=== PATIENT | female | born 1950 | race Caucasian/White ===

== ENCOUNTER → 2017-06-28 12:01 | Outpatient (CLI) | payer MEDICARE, MEDICAID, SELFPAY ==
--- NOTE | 2017-06-28 | DI.MRI.S_ITS ---
PROCEDURE: MR LUMBAR SPINE WO CON INDICATIONS: LOW BACK PAIN TECHNIQUE: Noncontrast sagittal T1 spin echo and T2 fast echo, sagittal STIR, axial T1 and T2 fast spin echo through the lumbar spine. In cases with scoliosis, additional coronal T2 fast spin echo may be performed. COMPARISON: [facility], MR, BRAIN W&WO CONTRAST, 12/03/2012, 9:35. [facility], MR, L-SPINE WITHOUT CONTRAST, 10/21/2012, 12:36. FINDINGS: Image quality: Excellent. Alignment and Curvature: There is grade 1 anterolisthesis of L4 over L5. Bone Marrow: Mild compression deformity of L2, unchanged from 10/21/2012. There is degenerative endplate signal changes scattered in lumbar spine. No acute vertebral body compression fractures. Spinal Cord: Conus medullaris terminates at the L1 level. Visualized cord demonstrates normal signal and size. Paraspinous Soft Tissues: No paravertebral masses. L1-L2: Preserved disc height. Mild disc desiccation. There is mild posterior disc bulge. The central canal is patent. No foraminal stenosis. No significant change from the last exam. L2-L3: Mild loss of disc height and moderate disc desiccation. There is mild posterior disc bulge and posterior central disc extrusion extending inferiorly. Mild bilateral facet arthropathy and hypertrophy of ligamentum flavum. The central canal is mildly narrowed. Mild foraminal foraminal stenosis on the right. No foraminal stenosis on the left. No significant change from the last exam. L3-L4: Mild loss of disc height and disc desiccation. There is mild posterior disc bulge. Mild bilateral facet arthropathy and hypertrophy of ligamentum flavum. The central canal is mildly narrowed. No foraminal stenosis. No significant change from the last exam. L4-L5: Mild loss of disc height and disc desiccation. There is diffuse posterior disc bulge. Moderate bilateral facet arthropathy and hypertrophy of ligamentum flavum. The central canal is mildly narrowed. No foraminal stenosis. No significant change from the last exam. L5-S1: Moderate to severe loss of disc height and disc desiccation. There is diffuse posterior disc bulge and a small posterior central annular tear. Mild bilateral facet arthropathy. The central canal is patent. Mild bilateral foraminal stenosis. No significant change from the last exam. IMPRESSION: 1. Multilevel degenerative disc disease and facet arthropathy as described. 2. Mild central canal stenosis at several levels. 3. Mild foraminal stenoses as described. 4. Mild chronic L2 compression fracture. Dictated by: Sammi Waters M.D. on 06/28/2017 at 16:53 Approved by: Sammi Waters M.D. on 06/29/2017 at 9:44
== END ==
PROVIDERS: PCP Nurse Practitioner; Visit Provider Anesthesiology Pain Medicine
DX: M51.36 Other intervertebral disc degeneration, lumbar region (principal); M47.816 Spondylosis without myelopathy or radiculopathy, lumbar region; M48.061 Spinal stenosis, lumbar region without neurogenic claudication; M99.73 Connective tissue and disc stenosis of intervertebral foramina of lumbar region; M48.56XA Collapsed vertebra, not elsewhere classified, lumbar region, initial encounter for fracture
CPT/HCPCS: 72148

== ENCOUNTER 2017-07-04 09:44 | Emergency (ER) | payer MEDICARE, MEDICAID, SELFPAY ==
--- NOTE | 2017-07-04 09:51 | ED.SYNCOPE ---
HPI - Syncope General Chief Complaint: Syncope Stated Complaint: syncope Time Seen by Provider: 07/04/17 09:51 Source: EMS Mode of arrival: EMS Limitations: no limitations History of Present Illness HPI narrative: Patient is a 67-year-old female who presents after syncopal episode. She actually fell and hit her head 3 days ago she was out in the garden walking backwards when she tripped hitting her head may be had a brief loss of consciousness. She said the headache off and on since been no vomiting. Today in the shower she felt extremely lightheaded she knew she was going to pass out. He had some heart palpitations. She was able to get dressed before she called 911. She did not eat breakfast today but she normally does not eat. MD complaint: felt faint and almost passed out Related Data Home Medications Medication Instructions Recorded Confirmed lisinopril 10 mg PO QDAY #0 10/28/10 07/04/17 hydrochlorothiazide 25 mg PO QDAY #0 10/05/11 07/04/17 clonazepam 1 mg PO TID 07/04/17 07/04/17 cyanocobalamin (vitamin B-12) 1,000 mcg IM QMONTH 07/04/17 07/04/17 [Vitamin B-12] ergocalciferol (vitamin D2) 1 cap PO QWEEK 07/04/17 07/04/17 [Vitamin D2] hydrocodone-acetaminophen [[place]] 1 tab PO BID 07/04/17 07/04/17 levothyroxine 100 mcg PO DAILY 07/04/17 07/04/17 morphine 15 mg PO BID 07/04/17 07/04/17 Allergies Allergy/AdvReac Type Severity Reaction Status Date / Time gabapentin [From Neurontin] Allergy Unknown Verified 07/04/17 09:59 Review of Systems Review of Systems All systems reviewed & are unremarkable except as noted in HPI and below Constitutional Denies chills, Denies fever(s), Denies lethargy and Denies weakness Eyes Denies change in vision, Denies eye discharge, Denies irritation and Denies loss of vision Cardiovascular Reports as per HPI, Reports system reviewed and no additional complaints, except as docu, Reports syncope and Reports rapid heart rate Gastrointestinal Gastrointestinal: Denies abdominal pain, Denies change in bowel habits, Denies diarrhea, Denies nausea and Denies vomiting Neurologic Reports syncope, Denies loss of vision and Denies weakness [facility] Social History Smoking Status: Never smoker Exam Initial Vital Signs Initial Vital Signs: Vital Signs Temperature 98.6 F 07/04/17 09:54 Pulse Rate 74 07/04/17 09:54 Respiratory Rate 18 07/04/17 09:54 Blood Pressure 135/76 H 07/04/17 09:54 Pulse Oximetry 98 07/04/17 09:54 Const General: cooperative and well developed Nutritional Appearance: well nourished Orientation: alert, awake, oriented x3 and not confused HENMT Head: normal to inspection and normocephalic Nose: external nose normal Resp Effort & Inspection: normal respiratory effort, able to speak in complete sentences, no respiratory distress and no use of accessory muscles Auscultation: clear to auscultation bilaterally, no rales, no rhonchi and no wheezes Back/Spine/Pelvis Cervical Spine: other (in collar, midline tenderness no step-offs) Skin General: no rashes or lesions noted, No jaundice and No petechiae Neuro General: alert, oriented x3, gait normal and no focal motor deficits Speech: speech normal Course Hospital Course: NIH STROKE SCALE: Score=0 1a. LOC=0 1b. LOC questions= 0 -->What month is it? How old are you? 1c. LOC commands=0 -->Open and close your eyes. Assigner and release your hand 2. Best gaze=0 3. Visual Gonzalez=0 4. Facial Palsy=0 5. Motor Arm --Right=0 --Left=0 6. Motor Leg --Right=0 --Left=0 7. Limb Ataxia=0 8.Sensory=0 9. Best language=0 10. Dysarthria=0 11.Extinction and Inattention=0 Orders Ordered: ED Orders 07/04/17 09:52 CT cervical spine wo con Stat CT head/brain wo con Stat EKG-12 Lead Stat 07/04/17 10:07 Complete Blood Count AUTO DIFF Stat Comprehensive Metabolic Panel Stat Troponin with CK Cardiac Panel Stat Discontinued Medications Sodium Chloride (Normal Saline 0.9%) 1,000 mls @ 1,000 mls/hr IV BOLUS ONE Stop: 07/04/17 10:50 Last Infusion: 07/04/17 12:04 Dose: 0 mls/hr Admin: 07/04/17 10:31 Dose: 1,000 mls/hr Ketorolac Tromethamine (Toradol) 30 mg IV NOW ONE Stop: 07/04/17 11:02 Last Admin: 07/04/17 11:03 Dose: 30 mg Vital Signs - 8 hr 07/04/17 09:54 07/04/17 10:32 07/04/17 10:33 Temperature 98.6 F Pulse Rate 74 70 68 Respiratory Rate 18 14 12 Blood Pressure 135/76 H Blood Pressure [Left Arm] 103/57 L 103/57 L Pulse Oximetry 98 99 99 07/04/17 11:05 07/04/17 12:05 Temperature Pulse Rate 64 70 Respiratory Rate 14 12 Blood Pressure Blood Pressure [Left Arm] 150/62 H 104/80 Pulse Oximetry 99 99 MDM - Syncope Lab Data Attestation: I reviewed the patient's lab results. Mild leukocytosis the same as it was in October no left shift no sign of infection. Result diagrams: 07/04/17 10:07 07/04/17 10:07 Lab Results 07/04/17 07/04/17 Range/Units 10:07 10:07 WBC 14.5 H (4.5-11.0) X10^3/uL RBC 4.89 (4.0-5.2) X10^6/uL Hgb 15.5 (12.0-16.0) g/dL Hct 45.7 (36-46) % MCV 93.4 (80-100) fL MCH 31.7 (26-34) PG MCHC 33.9 (30-36) % RDW 14.0 (11.6-14.8) % Plt Count 286 (150-400) X10^3/uL Neut % (Auto) 56.8 (50-75) % Lymph % (Auto) 29.5 (25-40) % [place] % (Auto) 10.0 (3-14) % Eos % (Auto) 3.0 (2-4) % Baso % (Auto) 0.7 (0-2) % Neut # (Auto) 8200 H (3232-0543) /uL Sodium 142 (137-145) mmol/L Potassium 3.7 (3.4-5.1) mmol/L Chloride 99 (98-107) mmol/L Carbon Dioxide 33 H (22-32) mmol/L BUN 18 H (7-17) mg/dL Creatinine 0.80 (0.52-1.04) mg/dL Estimated GFR > 60.0 (>60) mL/min BUN/Creatinine Ratio 22.5 H (6-22) Glucose 104 (80-110) mg/dL Calcium 10.6 H (8.4-10.2) mg/dL Total Bilirubin 0.4 (0.2-1.3) mg/dL AST 37 H (14-36) IU/L ALT 23 (9-52) IU/L Alkaline Phosphatase 65 (38-126) U/L Total Creatine Kinase 51 (30-135) U/L Troponin I < 0.012 (0.01-0.034) ng/mL Total Protein 8.0 (6.3-8.2) g/dL Albumin 4.4 (3.5-5.0) g/dL Globulin 3.6 (1.7-4.1) g/dL Albumin/Globulin Ratio 1.2 (1.0-2.8) Imaging Data CT scan - head: Radiologist's impression: [place] [address] CT Scan Report Signed Patient: Katherine Vasquez I MR#: [id number] : 1950 Acct:[id number] Age/Sex: 67 / F Date of Service: 07/04/17 Loc: Accession Number: [id number] Procedure: CT head/brain wo con Ordering Provider: Sandra Diaz D.O. PROCEDURE: CT HEAD/BRAIN WO CON INDICATIONS: passed out TECHNIQUE: Noncontrast 4.5 mm thick angled axial sections acquired from the foramen magnum to the vertex, with coronal and sagittal reformats. For radiation dose reduction, the following was used: automated exposure control, adjustment of mA and/or kV according to patient size. COMPARISON: [facility], MR, BRAIN W&WO CONTRAST, 12/03/2012, 9:35. FINDINGS: Image quality: Excellent. CSF spaces: Basal cisterns are patent. No extra-axial fluid collections. Ventricles are normal in size and shape. Brain: No midline shift. No intracranial masses or hemorrhage. Rivera-white matter interface is normal. Skull and face: Calvarium and visualized facial bones are intact, without suspicious lesions. Sinuses: Visualized sinuses and mastoids are clear. IMPRESSION: No acute intracranial abnormality. c-spine: Radiologist's impression: PROCEDURE: CT CERVICAL SPINE WO CON INDICATIONS: neck pain passed out hit head TECHNIQUE: Noncontrast 3 mm thick sections acquired from the skull base to the T4 level. Sagittal and coronal reformats were then constructed. For radiation dose reduction, the following was used: automated exposure control, adjustment of mA and/or kV according to patient size. COMPARISON: None. FINDINGS: Image quality: Excellent. Bones: Mild straightening of cervical lordosis which could be positional or related to muscle spasm. No fractures or dislocations. Degenerative disc disease and mild spondylosis C5-6 and C6-7. Visualized superior ribs are intact. Soft tissues: Prevertebral soft tissues are normal in thickness. No paravertebral hematomas. No apical pneumothoraces. Calcifications in the left lobe of thyroid. IMPRESSION: 1. Loss of cervical lordosis. 2. No fracture or subluxation. 3. Disc degeneration C5-6 and C6-7. ECG Data Attestation: I personally reviewed and interpreted this ECG as follows: Prior ECG tracings: available for review Interpretation: Rhythm rate [address] changes MDM Narrative Medical decision making narrative: She is feeling much better. She is ambulatory to the restroom. She in her head a few days ago. Possible concussion syndrome. No neurologic deficits. Discharge Plan Departure Patient Disposition: Home, Self-Care Clinical Impression: Near syncope Discharge Date/Time: 07/04/17 12:08 Interventions: ED Discharge Assessment Last Done: 07/04/17 12:07 Instructions: DI for Syncope in Adults (Fainting) Activity Restrictions/Additional Instructions: *You have been diagnosed with fainting *What to do: Increase fluid intake, eat frequent meals, if still having headache pain may require the headache specialist here in town *Continue to take medications as directed *Follow up with your primary care provider in 2-3 days *Return to ER if you should have persistent vomiting, weakness, vision changes or any new, worsening or concerning symptoms Prescriptions: No Action lisinopril 10 MG tablet 10 mg PO QDAY Qty: 0 RF: 0 hydrochlorothiazide 25 MG tablet 25 mg PO QDAY Qty: 0 RF: 0 hydrocodone-acetaminophen [[place]] 5-325 mg Tablet 1 tab PO BID RF: 0 clonazepam 1 mg Tablet 1 mg PO TID RF: 0 levothyroxine 100 mcg Tablet 100 mcg PO DAILY RF: 0 cyanocobalamin (vitamin B-12) [Vitamin B-12] 1,000 mcg/mL Solution 1,000 mcg IM QMONTH RF: 0 morphine 15 mg Tablet Extended Release 15 mg PO BID RF: 0 ergocalciferol (vitamin D2) [Vitamin D2] 50,000 unit Capsule 1 cap PO QWEEK RF: 0
[2017-07-04 09:54] VITALS: BP 135/76; PULSE 74; RESP 18; TEMP 37; O2SAT 98; BMI 27.6
--- NOTE | 2017-07-04 09:56 | ED_ITS ---
HPI - Syncope General Chief Complaint: Syncope Stated Complaint: syncope Time Seen by Provider: 07/04/17 09:51 Source: EMS Mode of arrival: EMS Limitations: no limitations History of Present Illness HPI narrative: Patient is a 67-year-old female who presents after syncopal episode. She actually fell and hit her head 3 days ago she was out in the garden walking backwards when she tripped hitting her head may be had a brief loss of consciousness. She said the headache off and on since been no vomiting. Today in the shower she felt extremely lightheaded she knew she was going to pass out. He had some heart palpitations. She was able to get dressed before she called 911. She did not eat breakfast today but she normally does not eat. MD complaint: felt faint and almost passed out Related Data Home Medications Medication Instructions Recorded Confirmed lisinopril 10 mg PO QDAY #0 10/28/10 07/04/17 hydrochlorothiazide 25 mg PO QDAY #0 10/05/11 07/04/17 clonazepam 1 mg PO TID 07/04/17 07/04/17 cyanocobalamin (vitamin B-12) 1,000 mcg IM QMONTH 07/04/17 07/04/17 [Vitamin B-12] ergocalciferol (vitamin D2) 1 cap PO QWEEK 07/04/17 07/04/17 [Vitamin D2] hydrocodone-acetaminophen [[place]] 1 tab PO BID 07/04/17 07/04/17 levothyroxine 100 mcg PO DAILY 07/04/17 07/04/17 morphine 15 mg PO BID 07/04/17 07/04/17 Allergies Allergy/AdvReac Type Severity Reaction Status Date / Time gabapentin [From Neurontin] Allergy Unknown Verified 07/04/17 09:59 Review of Systems Review of Systems All systems reviewed & are unremarkable except as noted in HPI and below Constitutional Denies chills, Denies fever(s), Denies lethargy and Denies weakness Eyes Denies change in vision, Denies eye discharge, Denies irritation and Denies loss of vision Cardiovascular Reports as per HPI, Reports system reviewed and no additional complaints, except as docu, Reports syncope and Reports rapid heart rate Gastrointestinal Gastrointestinal: Denies abdominal pain, Denies change in bowel habits, Denies diarrhea, Denies nausea and Denies vomiting Neurologic Reports syncope, Denies loss of vision and Denies weakness [facility] Social History Smoking Status: Never smoker Exam Initial Vital Signs Initial Vital Signs: Vital Signs Temperature 98.6 F 07/04/17 09:54 Pulse Rate 74 07/04/17 09:54 Respiratory Rate 18 07/04/17 09:54 Blood Pressure 135/76 H 07/04/17 09:54 Pulse Oximetry 98 07/04/17 09:54 Const General: cooperative and well developed Nutritional Appearance: well nourished Orientation: alert, awake, oriented x3 and not confused HENMT Head: normal to inspection and normocephalic Nose: external nose normal Resp Effort & Inspection: normal respiratory effort, able to speak in complete sentences, no respiratory distress and no use of accessory muscles Auscultation: clear to auscultation bilaterally, no rales, no rhonchi and no wheezes Back/Spine/Pelvis Cervical Spine: other (in collar, midline tenderness no step-offs) Skin General: no rashes or lesions noted, No jaundice and No petechiae Neuro General: alert, oriented x3, gait normal and no focal motor deficits Speech: speech normal Course Hospital Course: NIH STROKE SCALE: Score=0 1a. LOC=0 1b. LOC questions= 0 -->What month is it? How old are you? 1c. LOC commands=0 -->Open and close your eyes. Instructor Adjunct Pharmacy Technician and release your hand 2. Best gaze=0 3. Visual Gonzalez=0 4. Facial Palsy=0 5. Motor Arm --Right=0 --Left=0 6. Motor Leg --Right=0 --Left=0 7. Limb Ataxia=0 8.Sensory=0 9. Best language=0 10. Dysarthria=0 11.Extinction and Inattention=0 Orders Ordered: ED Orders 07/04/17 09:52 CT cervical spine wo con Stat CT head/brain wo con Stat EKG-12 Lead Stat 07/04/17 10:07 Complete Blood Count AUTO DIFF Stat Comprehensive Metabolic Panel Stat Troponin with CK Cardiac Panel Stat Discontinued Medications Sodium Chloride (Normal Saline 0.9%) 1,000 mls @ 1,000 mls/hr IV BOLUS ONE Stop: 07/04/17 10:50 Last Infusion: 07/04/17 12:04 Dose: 0 mls/hr Admin: 07/04/17 10:31 Dose: 1,000 mls/hr Ketorolac Tromethamine (Toradol) 30 mg IV NOW ONE Stop: 07/04/17 11:02 Last Admin: 07/04/17 11:03 Dose: 30 mg Vital Signs - 8 hr 07/04/17 09:54 07/04/17 10:32 07/04/17 10:33 Temperature 98.6 F Pulse Rate 74 70 68 Respiratory Rate 18 14 12 Blood Pressure 135/76 H Blood Pressure [Left Arm] 103/57 L 103/57 L Pulse Oximetry 98 99 99 07/04/17 11:05 07/04/17 12:05 Temperature Pulse Rate 64 70 Respiratory Rate 14 12 Blood Pressure Blood Pressure [Left Arm] 150/62 H 104/80 Pulse Oximetry 99 99 MDM - Syncope Lab Data Attestation: I reviewed the patient's lab results. Mild leukocytosis the same as it was in October no left shift no sign of infection. Result diagrams: 07/04/17 10:07 07/04/17 10:07 Lab Results 07/04/17 07/04/17 Range/Units 10:07 10:07 WBC 14.5 H (4.5-11.0) X10^3/uL RBC 4.89 (4.0-5.2) X10^6/uL Hgb 15.5 (12.0-16.0) g/dL Hct 45.7 (36-46) % MCV 93.4 (80-100) fL MCH 31.7 (26-34) PG MCHC 33.9 (30-36) % RDW 14.0 (11.6-14.8) % Plt Count 286 (150-400) X10^3/uL Neut % (Auto) 56.8 (50-75) % Lymph % (Auto) 29.5 (25-40) % [place] % (Auto) 10.0 (3-14) % Eos % (Auto) 3.0 (2-4) % Baso % (Auto) 0.7 (0-2) % Neut # (Auto) 8200 H (7898-7127) /uL Sodium 142 (137-145) mmol/L Potassium 3.7 (3.4-5.1) mmol/L Chloride 99 (98-107) mmol/L Carbon Dioxide 33 H (22-32) mmol/L BUN 18 H (7-17) mg/dL Creatinine 0.80 (0.52-1.04) mg/dL Estimated GFR > 60.0 (>60) mL/min BUN/Creatinine Ratio 22.5 H (6-22) Glucose 104 (80-110) mg/dL Calcium 10.6 H (8.4-10.2) mg/dL Total Bilirubin 0.4 (0.2-1.3) mg/dL AST 37 H (14-36) IU/L ALT 23 (9-52) IU/L Alkaline Phosphatase 65 (38-126) U/L Total Creatine Kinase 51 (30-135) U/L Troponin I < 0.012 (0.01-0.034) ng/mL Total Protein 8.0 (6.3-8.2) g/dL Albumin 4.4 (3.5-5.0) g/dL Globulin 3.6 (1.7-4.1) g/dL Albumin/Globulin Ratio 1.2 (1.0-2.8) Imaging Data CT scan - head: Radiologist's impression: [place] [address] CT Scan Report Signed Patient: Katherine Vasquez I MR#: [id number] : 1950 Acct:[id number] Age/Sex: 67 / F Date of Service: 07/04/17 Loc: Accession Number: [id number] Procedure: CT head/brain wo con Ordering Provider: Sandra Diaz D.O. PROCEDURE: CT HEAD/BRAIN WO CON INDICATIONS: passed out TECHNIQUE: Noncontrast 4.5 mm thick angled axial sections acquired from the foramen magnum to the vertex, with coronal and sagittal reformats. For radiation dose reduction, the following was used: automated exposure control, adjustment of mA and/or kV according to patient size. COMPARISON: [facility], MR, BRAIN W&WO CONTRAST, 12/03/2012, 9:35. FINDINGS: Image quality: Excellent. CSF spaces: Basal cisterns are patent. No extra-axial fluid collections. Ventricles are normal in size and shape. Brain: No midline shift. No intracranial masses or hemorrhage. Rivera-white matter interface is normal. Skull and face: Calvarium and visualized facial bones are intact, without suspicious lesions. Sinuses: Visualized sinuses and mastoids are clear. IMPRESSION: No acute intracranial abnormality. c-spine: Radiologist's impression: PROCEDURE: CT CERVICAL SPINE WO CON INDICATIONS: neck pain passed out hit head TECHNIQUE: Noncontrast 3 mm thick sections acquired from the skull base to the T4 level. Sagittal and coronal reformats were then constructed. For radiation dose reduction, the following was used: automated exposure control, adjustment of mA and/or kV according to patient size. COMPARISON: None. FINDINGS: Image quality: Excellent. Bones: Mild straightening of cervical lordosis which could be positional or related to muscle spasm. No fractures or dislocations. Degenerative disc disease and mild spondylosis C5-6 and C6-7. Visualized superior ribs are intact. Soft tissues: Prevertebral soft tissues are normal in thickness. No paravertebral hematomas. No apical pneumothoraces. Calcifications in the left lobe of thyroid. IMPRESSION: 1. Loss of cervical lordosis. 2. No fracture or subluxation. 3. Disc degeneration C5-6 and C6-7. ECG Data Attestation: I personally reviewed and interpreted this ECG as follows: Prior ECG tracings: available for review Interpretation: Rhythm rate [address] changes MDM Narrative Medical decision making narrative: She is feeling much better. She is ambulatory to the restroom. She in her head a few days ago. Possible concussion syndrome. No neurologic deficits. Discharge Plan Departure Patient Disposition: Home, Self-Care Clinical Impression: Near syncope Discharge Date/Time: 07/04/17 12:08 Interventions: ED Discharge Assessment Last Done: 07/04/17 12:07 Instructions: DI for Syncope in Adults (Fainting) Activity Restrictions/Additional Instructions: *You have been diagnosed with fainting *What to do: Increase fluid intake, eat frequent meals, if still having headache pain may require the headache specialist here in town *Continue to take medications as directed *Follow up with your primary care provider in 2-3 days *Return to ER if you should have persistent vomiting, weakness, vision changes or any new, worsening or concerning symptoms Prescriptions: No Action lisinopril 10 MG tablet 10 mg PO QDAY Qty: 0 RF: 0 hydrochlorothiazide 25 MG tablet 25 mg PO QDAY Qty: 0 RF: 0 hydrocodone-acetaminophen [[place]] 5-325 mg Tablet 1 tab PO BID RF: 0 clonazepam 1 mg Tablet 1 mg PO TID RF: 0 levothyroxine 100 mcg Tablet 100 mcg PO DAILY RF: 0 cyanocobalamin (vitamin B-12) [Vitamin B-12] 1,000 mcg/mL Solution 1,000 mcg IM QMONTH RF: 0 morphine 15 mg Tablet Extended Release 15 mg PO BID RF: 0 ergocalciferol (vitamin D2) [Vitamin D2] 50,000 unit Capsule 1 cap PO QWEEK RF: 0
[2017-07-04 10:11] LABS: Add Manual Diff / Slide Review NO; Basophils Percent Auto 0.7 % (0-2); Hematocrit 45.7 % (36-46); Hemoglobin 15.5 g/dL (12.0-16.0); Lymphocytes Percent Auto 29.5 % (25-40); Mean Corpuscular HGB Conc 33.9 % (30-36); Mean Corpuscular Hemoglobin 31.7 PG (26-34); Mean Corpuscular Volume 93.4 fL (80-100); Neutrophils Absolute Auto 8200 /uL (3000-5900); Neutrophils Percent Auto 56.8 % (50-75); Platelet Count 286 X10^3/uL (150-400); Red Blood Cell Count 4.89 X10^6/uL (4.0-5.2); White Blood Cell Count 14.5 X10^3/uL (4.5-11.0)
[2017-07-04 10:20] LABS: Alanine Aminotransferase 23 IU/L (9-52); Albumin 4.4 g/dL (3.5-5.0); Albumin Globulin Ratio 1.2 (1.0-2.8); Alkaline Phosphatase 65 U/L (38-126); Aspartate Aminotransferase 37 IU/L (14-36); BUN Creatinine Ratio 22.5 (6-22); Bilirubin Total 0.4 mg/dL (0.2-1.3); Blood Urea Nitrogen 18 mg/dL (7-17); Calcium 10.6 mg/dL (8.4-10.2); Carbon Dioxide 33 mmol/L (22-32); Chloride 99 mmol/L (98-107); Creatine Kinase 51 U/L (30-135); Estimated Glomerular Filt Rate > 60.0 mL/min (>60); Globulin 3.6 g/dL (1.7-4.1); Glucose 104 mg/dL (80-110); HEMOLYSIS 22 (0-50); Potassium 3.7 mmol/L (3.4-5.1); Sodium 142 mmol/L (137-145)
--- NOTE | 2017-07-04 10:26 | PC.NURSE ---
Hard collar placed pre hospital by EMS r/t previous fall and c/o cervical tenderness. No neuro deficity.
[2017-07-04] MEDS: SODIUM CHLORIDE 0.9% 1,000 ML 1000 ML IV (10:31)
[2017-07-04 10:32] VITALS: BP 103/57; PULSE 70; RESP 14; O2SAT 99
[2017-07-04 10:32] LABS: Troponin I < 0.012 ng/mL (0.01-0.034)
[2017-07-04 10:33] VITALS: BP 103/57; PULSE 68; RESP 12; O2SAT 99
[2017-07-04] MEDS: KETOROLAC 60 MG/2 ML VIAL 30 MG IV (11:03)
[2017-07-04 11:05] VITALS: BP 150/62; PULSE 64; RESP 14; O2SAT 99
[2017-07-04 12:05] VITALS: BP 104/80; PULSE 70; RESP 12; O2SAT 99
--- NOTE | 2017-07-04 12:06 | PC.NURSE ---
Walking w/ improved gait. Ate 100% on meal. No acute distress. States headache is 'a little' better but due to take home medications (morphine / vicodin). Taking taxi home. No acute distress.
== END 2017-07-04 12:08 | disposition home or self-care (01) ==
PROVIDERS: Emergency Provider Emergency Medicine; PCP Anesthesiology Pain Medicine
DX: R55 Syncope and collapse (principal)
CPT/HCPCS: 36591; 70450; 72125; 80053; 81003; 82550; 82553; 82962; 84484; 85025; 93005; 96361; 96374; 99283; 99285; J1885

== ENCOUNTER → 2018-02-20 17:26 | Outpatient (CLI) | payer MEDICARE, MEDICAID, SELFPAY ==
[2018-02-20 19:08] LABS: Vitamin D 25 Hydroxy (D3) 22.1 ng/mL (30.0-100.0)
[2018-02-20 19:21] LABS: Thyroid Stimulating Hormone 4.29 uIU/mL (0.47-4.68)
== END ==
PROVIDERS: PCP Anesthesiology Pain Medicine; Visit Provider Nurse Practitioner
DX: E03.9 Hypothyroidism, unspecified (principal); E55.9 Vitamin D deficiency, unspecified
CPT/HCPCS: 36415; 82306; 84443

== ENCOUNTER 2018-08-08 13:07 | Emergency (ER) | payer MEDICARE, MEDICAID, SELFPAY ==
[2018-08-08 13:15] VITALS: BP 150/87; PULSE 87; RESP 16; O2SAT 94; BMI 30.9
--- NOTE | 2018-08-08 13:48 | PC.NURSE ---
pt sitting on the chair, calmly, skin warm dry pink.
--- NOTE | 2018-08-08 13:58 | ED.RECABL ---
HPI - Recheck/Abnormal Lab/Rx <ISIDRA Lilly - Last Filed: 08/08/18 21:22> General Chief Complaint: Recheck/Abnormal Lab/Rx Stated Complaint: Needs her pain medication, in severe pain Time Seen by Provider: 08/08/18 13:32 Source: patient Mode of arrival: ambulatory Limitations: no limitations History of Present Illness HPI narrative: 68-year-old female with a history of chronic opioid (for back pain)use is current clean a being seen at the [facility] for chronic pain control, presents emergency department today stating that she had an appointment yesterday at the pain clinic and her prescriptions were refilled. However, when she went to the pharmacy to mushroom picker her medication they did not receive described. She is here for refill. The patient states her pain is caused by a failed surgery. States she will run out over the weekend. Patient denies chest pain, shortness of breath, nausea, vomiting, syncope, or headaches. Melissa stated her prescriptions refilled on 08/04 and they were filled for 6 days, patient takes hydrocodone and morphine for pain. Related Data Home Medications Medication Instructions Recorded Confirmed lisinopril 10 mg PO QDAY #0 10/28/10 07/04/17 hydrochlorothiazide 25 mg PO QDAY #0 10/05/11 07/04/17 clonazepam 1 mg PO TID 07/04/17 07/04/17 cyanocobalamin (vitamin B-12) 1,000 mcg IM QMONTH 07/04/17 07/04/17 [Vitamin B-12] ergocalciferol (vitamin D2) 1 cap PO QWEEK 07/04/17 07/04/17 [Vitamin D2] hydrocodone-acetaminophen [[place]] 1 tab PO BID 07/04/17 07/04/17 levothyroxine 100 mcg PO DAILY 07/04/17 07/04/17 morphine 15 mg PO BID 07/04/17 07/04/17 Previous Rx's Medication Instructions Recorded ondansetron 4 mg PO Q8H PRN #7 tab 08/08/18 Allergies Allergy/AdvReac Type Severity Reaction Status Date / Time gabapentin [From Neurontin] Allergy Unknown Verified 08/08/18 13:15 Review of Systems <ISIDRA Lilly - Last Filed: 08/08/18 21:22> Review of Systems REVIEW OF SYSTEMS: GENERAL: Denies fever or chills. HENT: No head trauma, hearing loss or sore throat. EYES: No loss of vision, double vision, eye pain, or irritation. CARDIOVASCULAR: No chest pain or syncope. RESPIRATORY: No shortness of breath or cough. GASTROINTESTINAL: No nausea, vomiting, diarrhea, or constipation. GENITOURINARY: No flank pain or dysuria. MUSCULOSKELETAL: Complains of back pain, see HPI. INTEGUMENTARY: No rash, lesions, or pruritus. NEURO: No numbness, tingling, memory loss, or confusion. PSYCH: No behavior or mood changes. PFSH <ISIDRA Lilly - Last Filed: 08/08/18 21:22> Medical History (Updated 08/08/18 @ 21:19 by ISIDRA Lilly) Opioid use (Acute) Social History Smoking Status: Never smoker Social History Smoking Status: Never smoker Exam <ISIDRA Lilly - Last Filed: 08/08/18 21:22> Initial Vital Signs Initial Vital Signs: Vital Signs Pulse Rate 87 08/08/18 13:15 Respiratory Rate 16 08/08/18 13:15 Blood Pressure 150/87 H 08/08/18 13:15 Pulse Oximetry 94 08/08/18 13:15 PHYSICAL EXAMINATION: GENERAL: Well groomed, alert, and cooperative Answers questions promptly and appropriately. Vital signs noted. HENT: Normocephalic, atraumatic. EYES: PERRLA, conjunctiva pink, sclera white, no periorbital swelling. CARDIOVASCULAR: S1 and S2 sounds normal. Regular rate and rhythm, no murmurs, clicks, or bruits. No pedal edema. RESPIRATORY: Normal respiratory rate, trachea midline, airway patent. No stridor, nasal flaring or accessory muscle use. Lungs are clear in all garcia without wheeze, rhonchi, or crackles. . MUSCULOSKELETAL: Normal gait and coordination. Equal tone and mass bilaterally. EXTREMITIES: CMS intact. Moves all extremities. SKIN: Warm, dry, soft, appropriate color for ethnicity. No lesions, rashes, or wounds. NEURO: Alert and Oriented X 3. Good coordination. No ataxia, or sensory deficits, or cognitive issues. PSYCH: Appropriate affect and mood. Patient tearful during history and physical. <Charly Kidd DO - Last Filed: 08/09/18 01:06> Initial Vital Signs Initial Vital Signs: Vital Signs Pulse Rate 87 08/08/18 13:15 Respiratory Rate 16 08/08/18 13:15 Blood Pressure 150/87 H 08/08/18 13:15 Pulse Oximetry 94 08/08/18 13:15 Course <ISIDRA Lilly - Last Filed: 08/08/18 21:22> Course Narrative: Attempted to call Pain Clinic however there is no collection advisor doctor for pain clinic. Called to [facility] pharmacy in accordance, they stated patient had last refill medications on 08/04, she was given medications for 6 days which should last her until August 10, so she will have 1 day without pain medication. Patient was offered Toradol and Tylenol, she refused Tylenol but accepted her Toradol administration. States she felt slightly better after administration. Orders Ordered: Discontinued Medications Ketorolac Tromethamine (Toradol) 30 mg IM NOW ONE Stop: 08/08/18 14:09 Last Admin: 08/08/18 14:16 Dose: 30 mg Consultations Consultation #1: Patient staffed with Dr. Diaz. Vital Signs - 8 hr 08/08/18 14:47 Pulse Rate 70 Respiratory Rate 17 Blood Pressure [Left Arm] 141/85 H Pulse Oximetry 97 <Charly Kidd DO - Last Filed: 08/09/18 01:06> Orders Ordered: Discontinued Medications Ketorolac Tromethamine (Toradol) 30 mg IM NOW ONE Stop: 08/08/18 14:09 Last Admin: 08/08/18 14:16 Dose: 30 mg Vital Signs - 8 hr 08/08/18 14:47 Pulse Rate 70 Respiratory Rate 17 Blood Pressure [Left Arm] 141/85 H Pulse Oximetry 97 MDM - Recheck/Abnormal Lab/Rx <ISIDRA Lilly - Last Filed: 08/08/18 21:22> Medical Records Attestation: I reviewed the patient's medical records. Lab Data Attestation: I reviewed the patient's lab results. MDM Narrative Medical decision making narrative: Patient here for chronic pain medication refill, explained extensively that we do not refill pain medication especially when she is on a pain contract. According to the pharmacy she should have enough left until August 10, she will only go 1 day without medication. Zofran given for request for nausea. Discharge Plan Departure Patient Disposition: Home Clinical Impression: Encounter for medication refill Discharge Date/Time: 08/08/18 14:59 Interventions: ED Discharge Assessment Last Done: 08/08/18 14:58 Instructions: DI for Prescription Opioid Use Activity Restrictions/Additional Instructions: Thank you for entrusting me with your care today. As discussed, I am unable to refill your pain medication as they are part of a pain contract. However I recommend calling her primary care provider in the morning. I prescribed you Zofran for nausea to take just in case, additionally few developed diarrhea I recommend taking [id number] Imodium to control her symptoms. Please return to the emergency department for shortness of breath, chest pain, or syncope. Prescriptions: New ondansetron 4 mg tablet,disintegrating 4 mg PO Q8H PRN (Reason: nausea and vomiting) Qty: 7 RF: 0 No Action lisinopril 10 MG tablet 10 mg PO QDAY Qty: 0 RF: 0 hydrochlorothiazide 25 MG tablet 25 mg PO QDAY Qty: 0 RF: 0 hydrocodone-acetaminophen [[place]] 5-325 mg Tablet 1 tab PO BID RF: 0 clonazepam 1 mg Tablet 1 mg PO TID RF: 0 levothyroxine 100 mcg Tablet 100 mcg PO DAILY RF: 0 cyanocobalamin (vitamin B-12) [Vitamin B-12] 1,000 mcg/mL Solution 1,000 mcg IM QMONTH RF: 0 morphine 15 mg Tablet Extended Release 15 mg PO BID RF: 0 ergocalciferol (vitamin D2) [Vitamin D2] 50,000 unit Capsule 1 cap PO QWEEK RF: 0 Referrals: Nereida Richardson ARNP [Primary Care Provider] - <Charly Kidd DO - Last Filed: 08/09/18 01:06> [place] ED Attending Jon Attestation: I was immediately available in the department for consultation. Documentation has been reviewed. I agree with assessment and plan.
[2018-08-08] MEDS: KETOROLAC 60 MG/2 ML VIAL 30 MG IM (14:16)
[2018-08-08 14:47] VITALS: BP 141/85; PULSE 70; RESP 17; O2SAT 97
== END 2018-08-08 14:59 | disposition home or self-care (01) ==
PROVIDERS: Emergency Provider Nurse Practitioner; PCP Nurse Practitioner
DX: M54.9 Dorsalgia, unspecified (principal)
CPT/HCPCS: 96372; 99283; J1885

== ENCOUNTER → 2020-05-21 09:54 | Outpatient (CLI) | payer MEDICARE, MEDICAID, SELFPAY ==
[2020-05-21 11:51] LABS: BUN Creatinine Ratio 17.3 (6-22); Blood Urea Nitrogen 17 mg/dL (7-17); Carbon Dioxide 31 mmol/L (22-32); Chloride 98 mmol/L (98-107); Estimated Glomerular Filt Rate 55.8 mL/min (>60); Glucose 119 mg/dL (80-110); HEMOLYSIS < 15 (0-50); Potassium 3.7 mmol/L (3.4-5.1); Sodium 138 mmol/L (137-145)
[2020-05-21 12:17] LABS: Thyroid Stimulating Hormone 3.75 uIU/mL (0.47-4.68)
== END ==
PROVIDERS: PCP Nurse Practitioner; Referring Provider Nurse Practitioner; Visit Provider Nurse Practitioner
DX: E03.9 Hypothyroidism, unspecified (principal); I10 Essential (primary) hypertension
CPT/HCPCS: 36415; 80048; 84443

== ENCOUNTER → 2021-09-12 13:30 | Outpatient (CLI) | payer MEDICARE, MEDICAID, SELFPAY ==
[2021-09-12 14:43] LABS: BUN Creatinine Ratio 9.9 (6-22); Blood Urea Nitrogen 10 mg/dL (7-17); Calcium 9.8 mg/dL (8.4-10.2); Carbon Dioxide 30 mmol/L (22-32); Chloride 106 mmol/L (98-107); Estimated Glomerular Filt Rate 59 mL/min (>60); Glucose 131 mg/dL (80-110); HEMOLYSIS < 15 (0-50); Potassium 3.9 mmol/L (3.4-5.1); Sodium 141 mmol/L (137-145)
[2021-09-12 15:15] LABS: Thyroid Stimulating Hormone 0.463 uIU/mL (0.47-4.68)
[2021-09-13 09:09] LABS: Ionized Calcium 5.3 mg/dL (4.5-5.6)
== END ==
PROVIDERS: PCP Nurse Practitioner; Referring Provider Nurse Practitioner; Visit Provider Nurse Practitioner
DX: I10 Essential (primary) hypertension (principal); E03.9 Hypothyroidism, unspecified; E83.52 Hypercalcemia
CPT/HCPCS: 36415; 80048; 82330; 84443

== ENCOUNTER 2022-07-19 18:38 | Inpatient (IN) | payer MEDICARE, SELFPAY ==
[2022-07-19] VITALS (16 sets, daily range): BP systolic 98–130; BP diastolic 55–76; PULSE 50–190; RESP 12–30; TEMP 36.1–36.2; O2SAT 93–97; BMI 30.2
[2022-07-19 19:03] LABS: Add Manual Diff / Slide Review NO; Basophils Absolute Auto 100 /uL (0-100); Basophils Percent Auto 1.1 % (0-2); Eosinophils Absolute Auto 300 /uL (0-450); Eosinophils Percent Auto 2.5 % (2-4); Hematocrit 42.5 % (36-46); Hemoglobin 14.6 g/dL (12.0-16.0); Lymphocytes Absolute Auto 3900 /uL (1100-4500); Lymphocytes Percent Auto 36.3 % (25-40); Mean Corpuscular HGB Conc 34.3 % (30-36); Mean Corpuscular Hemoglobin 32.9 PG (26-34); Mean Corpuscular Volume 96.1 fL (80-100); Monocytes Absolute Auto 900 /uL (0-900); Monocytes Percent Auto 8.1 % (3-14); Neutrophils Absolute Auto 5500 /uL (1500-7000); Platelet Count 221 X10^3/uL (150-400); Red Blood Cell Count 4.42 X10^6/uL (4.0-5.2); Red Cell Distribution Width 15.1 % (11.6-14.8); White Blood Cell Count 10.7 X10^3/uL (4.5-11.0)
[2022-07-19] MEDS: SODIUM CHLORIDE 0.9% 1,000 ML 1000 ML IV (19:06)
--- NOTE | 2022-07-19 19:12 | ED_ITS ---
HPI - General Adult General Chief complaint: Weakness Stated complaint: ref/said concerning test results Time Seen by Provider: 07/19/22 18:53 Source: patient Mode of arrival: Ambulatory Limitations: no limitations History of Present Illness HPI narrative: Patient is a 72-year-old female. She was brought to the emergency department for evaluation after having labs drawn today at a routine doctor's office visit. She went to go see her doctor today. This was a scheduled visit. She talked with her doctor about having issues with anxiety and fatigue in her other chronic medical issues. She had labs drawn. She went home after having labs drawn. She was then contacted and told to come to the emergency department because her TSH level was very high in her thyroid level was low. Patient denies chest pain however she is having some shortness of breath with exertion. She also states she is feeling very fatigued. No headache. Is having some lower extremity swelling. No diarrhea or constipation and no urinary symptoms. No sore throat. No cough. She states she did not sleep last night because she had an intense feeling that she was not going to wake up. Related Data Home Medications Medication Instructions Recorded Confirmed lisinopril 10 mg tablet 10 mg PO QDAY ##0 10/28/10 07/04/17 hydrochlorothiazide 25 mg tablet 25 mg PO QDAY ##0 10/05/11 07/04/17 clonazepam 1 mg tablet 1 mg PO TID 07/04/17 07/04/17 cyanocobalamin (vitamin B-12) 1,000 mcg IM QMONTH 07/04/17 07/04/17 1,000 mcg/mL injection solution (Vitamin B-12) ergocalciferol (vitamin D2) 1,250 1 cap PO QWEEK 07/04/17 07/04/17 mcg (50,000 unit) capsule (Vitamin D2) hydrocodone 5 mg-acetaminophen 325 1 tab PO BID 07/04/17 07/04/17 mg tablet ([place]) levothyroxine 100 mcg tablet 100 mcg PO DAILY 07/04/17 07/04/17 morphine 15 mg tablet,extended 15 mg PO BID 07/04/17 07/04/17 release Previous Rx's Medication Instructions Recorded ondansetron 4 mg disintegrating 4 mg PO Q8H PRN nausea and 08/08/18 tablet vomiting #7 tabs Allergies Allergy/AdvReac Type Severity Reaction Status Date / Time gabapentin [From Neurontin] Allergy Unknown Verified 08/08/18 13:15 Review of Systems Review of Systems ROS Unobtainable: All systems reviewed & are unremarkable except as noted in HPI and below Patient History Medical History Opioid use Social History household members: none Smoking Status: Current every day smoker alcohol intake: never Smoking Status: Never smoker alcohol intake frequency: 0-2 drinks per day Substance Use Type: does not use Exam Initial Vital Signs Initial Vital Signs: Vital Signs Temperature 97.1 F L 07/19/22 18:49 Pulse Rate 67 07/19/22 18:49 Respiratory Rate 16 07/19/22 18:49 Blood Pressure 118/61 07/19/22 18:49 Pulse Oximetry 96 07/19/22 18:49 Oxygen Delivery Method Room Air 07/19/22 18:49 Const General: cooperative, comfortable and No ill appearing [facility] Head: normal to inspection and normocephalic Resp Effort & Inspection: normal respiratory effort Auscultation: clear to auscultation bilaterally Cardio Rate: regular rate Rhythm: regular rhythm GI Inspection: normal to inspection Palpation: soft, No firm, No guarding and No tender Percussion: normal to percussion Skin General: no rashes or lesions noted Neuro General: patient alert, patient awake, patient oriented x3 and moves all extremities Speech: speech normal Extrem General: edema Psych Appearance: grossly normal and well kempt Scores GCS [place] coma scale eye opening: Spontaneous [place] coma scale verbal response: Orientated [place] coma scale motor response: Obey commands [place] coma scale total score: 15 Course Orders Ordered: ED Orders 07/19/22 18:54 Urine Drug Screen, Rapid Stat 07/19/22 18:55 Ammonia (NH3) Stat Complete Blood Count AUTO DIFF Stat Comprehensive Metabolic Panel Stat Cortisol Random Stat Ethanol (ETOH) Stat Free T3, Triiodothyronine Free Stat Free T4, Direct Thyroxine Stat Lactate (Lactic Acid) Stat Lipase Stat Magnesium Stat Thyroid Stimulating Hormone Stat Troponin & CK Cardiac Panel Stat Acetaminophen (Acetaminophen 325 Mg Tablet) 650 mg PO Q6H PRN PRN Reason: Fever/Mild Pain (1-3) Last Admin: 07/19/22 22:20 Dose: 650 mg Documented By: PERLA Docusate Sodium (Docusate 100 Mg Capsule) 100 mg PO BID [facility] Heparin Sodium (Porcine) (Heparin 5,000 Unit/Ml Vial) 5,000 unit SUBCUT BID [facility] Sodium Chloride (Normal Saline 0.9%) 1,000 mls @ 100 mls/hr IV CONT CHALO Last Admin: 07/19/22 22:15 Dose: 100 mls/hr Documented By: PERLA Levothyroxine Sodium (Levothyroxine 100 Mcg Tablet) 400 mcg PO DAILY@0600 CHALO Naloxone HCl (Naloxone 0.4 Mg/Ml Vial) 0.2 mg IV Q2MIN PRN PRN Reason: Opiate Reversal Oxycodone HCl (Oxycodone Ir 10 Mg Tablet) 10 mg PO Q3H PRN PRN Reason: Pain, Severe (7-10) Last Admin: 07/19/22 22:20 Dose: 10 mg Documented By: PERLA Discontinued Medications Sodium Chloride (Normal Saline 0.9%) 1,000 mls @ 1,000 mls/hr IV BOLUS ONE Stop: 07/19/22 19:52 Last Infusion: 07/19/22 20:13 Dose: 0 mls/hr Documented By: Admin: 07/19/22 19:06 Dose: 1,000 mls/hr Documented By: LUÍS Levothyroxine Sodium (Levothyroxine Inj 100 Mcg/5 Ml Vial) 200 mcg IV NOW ONE Stop: 07/19/22 20:47 Last Admin: 07/19/22 21:25 Dose: Not Given Documented By: PATTI Levothyroxine Sodium (Levothyroxine 100 Mcg Tablet) 400 mcg PO NOW ONE Stop: 07/19/22 21:09 Last Admin: 07/19/22 21:26 Dose: 400 mcg Documented By: PATTI Nicotine (Nicotine 14 Patch) 14 mg TOP NOW ONE Stop: 07/19/22 22:25 Last Admin: 07/19/22 22:51 Dose: 14 mg Documented By: PERLA Vital Signs Vital signs: Vital Signs - 8 hr 07/19/22 18:49 07/19/22 19:00 07/19/22 20:28 Temperature 97.1 F L Pulse Rate 67 64 Respiratory Rate 16 30 H Blood Pressure 118/61 Pulse Oximetry 96 96 97 Oxygen Delivery Method Room Air Room Air Nasal Cannula Oxygen Flow Rate 2 07/19/22 19:10 07/19/22 19:10 07/19/22 19:15 Temperature Pulse Rate 63 62 Respiratory Rate 18 16 Blood Pressure 130/63 Pulse Oximetry 94 95 Oxygen Delivery Method Room Air Room Air Oxygen Flow Rate 07/19/22 19:15 07/19/22 19:30 07/19/22 19:35 Temperature Pulse Rate 130 H 180 H Respiratory Rate 18 14 Blood Pressure 118/60 Pulse Oximetry 93 93 Oxygen Delivery Method Room Air Room Air Oxygen Flow Rate 07/19/22 19:35 07/19/22 19:46 07/19/22 19:46 Temperature Pulse Rate 190 H Respiratory Rate 15 Blood Pressure 122/59 L 122/76 Pulse Oximetry 94 Oxygen Delivery Method Room Air Oxygen Flow Rate 07/19/22 20:00 07/19/22 20:00 07/19/22 20:15 Temperature Pulse Rate 55 L Respiratory Rate 12 Blood Pressure 98/56 L 107/58 L Pulse Oximetry Oxygen Delivery Method Oxygen Flow Rate 07/19/22 20:15 07/19/22 20:30 07/19/22 20:30 Temperature Pulse Rate 56 L 52 L Respiratory Rate 18 Blood Pressure 104/55 L Pulse Oximetry 95 95 Oxygen Delivery Method Nasal Cannula Oxygen Flow Rate 2 07/19/22 20:45 07/19/22 20:45 Temperature Pulse Rate 50 L Respiratory Rate Blood Pressure 106/55 L Pulse Oximetry 94 Oxygen Delivery Method Nasal Cannula Oxygen Flow Rate 2 Medical Decision Making Medical Records Medical records reviewed: Yes I reviewed the patient's medical records. Lab Data Lab results reviewed: Yes I reviewed the patient's lab results. 07/19/22 18:55 07/19/22 18:55 Labs: Lab Results 07/19/22 07/19/22 07/19/22 Range/Units 18:55 18:55 18:55 WBC 10.7 (4.5-11.0) X10^3/uL RBC 4.42 (4.0-5.2) X10^6/uL Hgb 14.6 (12.0-16.0) g/dL Hct 42.5 (36-46) % MCV 96.1 (80-100) fL MCH 32.9 (26-34) PG MCHC 34.3 (30-36) % RDW 15.1 H (11.6-14.8) % Plt Count 221 (150-400) X10^3/uL Neut % (Auto) 52.0 (50-75) % Lymph % (Auto) 36.3 (25-40) % [place] % (Auto) 8.1 (3-14) % Eos % (Auto) 2.5 (2-4) % Baso % (Auto) 1.1 (0-2) % Neut # (Auto) 5500 (7315-4155) /uL Lymph # (Auto) 3900 (5197-0151) /uL [place] # (Auto) 900 (0-900) /uL Eos # (Auto) 300 (0-450) /uL Baso # (Auto) 100 (0-100) /uL Sodium 136 L (137-145) mmol/L Potassium 3.3 L (3.4-5.1) mmol/L Chloride 96 L (98-107) mmol/L Carbon Dioxide 35 H (22-32) mmol/L BUN 17 (7-17) mg/dL Creatinine 1.14 H (0.52-1.04) mg/dL Estimated GFR 51 L (>60) mL/min BUN/Creatinine Ratio 14.9 (6-22) Glucose 97 (80-110) mg/dL Lactate (0.7-2.1) mmol/L Calcium 10.4 H (8.4-10.2) mg/dL Magnesium 2.3 (1.6-2.3) mg/dL Total Bilirubin 0.7 (0.2-1.3) mg/dL AST 53 H (14-36) IU/L ALT 40 H (<35) IU/L Alkaline Phosphatase 52 (38-126) U/L Ammonia (9-30) umol/L Total Creatine Kinase 655 H (30-135) U/L CK-MB (CK-2) TNP CK-MB (CK-2) Rel Index TNP Troponin I < 0.012 (0.01-0.034) ng/mL Total Protein 8.1 (6.3-8.2) g/dL Albumin 4.7 (3.5-5.0) g/dL Globulin 3.4 (1.7-4.1) g/dL Albumin/Globulin Ratio 1.4 (1.0-2.8) Lipase 47 (23-300) U/L TSH (0.47-4.68) uIU/mL Free T4 < 0.07 L (0.78-2.19) ng/dL Free T3 0.94 L (2.77-5.27) pg/mL Random Cortisol ug/dL Ethyl Alcohol < 10 ( - 10) mg/dL 07/19/22 07/19/22 07/19/22 Range/Units 18:55 18:55 18:55 WBC (4.5-11.0) X10^3/uL RBC (4.0-5.2) X10^6/uL Hgb (12.0-16.0) g/dL Hct (36-46) % MCV (80-100) fL MCH (26-34) PG MCHC (30-36) % RDW (11.6-14.8) % Plt Count (150-400) X10^3/uL Neut % (Auto) (50-75) % Lymph % (Auto) (25-40) % [place] % (Auto) (3-14) % Eos % (Auto) (2-4) % Baso % (Auto) (0-2) % Neut # (Auto) (5029-9654) /uL Lymph # (Auto) (5090-2518) /uL [place] # (Auto) (0-900) /uL Eos # (Auto) (0-450) /uL Baso # (Auto) (0-100) /uL Sodium (137-145) mmol/L Potassium (3.4-5.1) mmol/L Chloride (98-107) mmol/L Carbon Dioxide (22-32) mmol/L BUN (7-17) mg/dL Creatinine (0.52-1.04) mg/dL Estimated GFR (>60) mL/min BUN/Creatinine Ratio (6-22) Glucose (80-110) mg/dL Lactate 1.1 (0.7-2.1) mmol/L Calcium (8.4-10.2) mg/dL Magnesium (1.6-2.3) mg/dL Total Bilirubin (0.2-1.3) mg/dL AST (14-36) IU/L ALT (<35) IU/L Alkaline Phosphatase (38-126) U/L Ammonia 15 (9-30) umol/L Total Creatine Kinase (30-135) U/L CK-MB (CK-2) CK-MB (CK-2) Rel Index Troponin I (0.01-0.034) ng/mL Total Protein (6.3-8.2) g/dL Albumin (3.5-5.0) g/dL Globulin (1.7-4.1) g/dL Albumin/Globulin Ratio (1.0-2.8) Lipase (23-300) U/L TSH 147 H (0.47-4.68) uIU/mL Free T4 (0.78-2.19) ng/dL Free T3 (2.77-5.27) pg/mL Random Cortisol ug/dL Ethyl Alcohol ( - 10) mg/dL 07/19/22 Range/Units 18:55 WBC (4.5-11.0) X10^3/uL RBC (4.0-5.2) X10^6/uL Hgb (12.0-16.0) g/dL Hct (36-46) % MCV (80-100) fL MCH (26-34) PG MCHC (30-36) % RDW (11.6-14.8) % Plt Count (150-400) X10^3/uL Neut % (Auto) (50-75) % Lymph % (Auto) (25-40) % [place] % (Auto) (3-14) % Eos % (Auto) (2-4) % Baso % (Auto) (0-2) % Neut # (Auto) (8361-4883) /uL Lymph # (Auto) (5344-4424) /uL [place] # (Auto) (0-900) /uL Eos # (Auto) (0-450) /uL Baso # (Auto) (0-100) /uL Sodium (137-145) mmol/L Potassium (3.4-5.1) mmol/L Chloride (98-107) mmol/L Carbon Dioxide (22-32) mmol/L BUN (7-17) mg/dL Creatinine (0.52-1.04) mg/dL Estimated GFR (>60) mL/min BUN/Creatinine Ratio (6-22) Glucose (80-110) mg/dL Lactate (0.7-2.1) mmol/L Calcium (8.4-10.2) mg/dL Magnesium (1.6-2.3) mg/dL Total Bilirubin (0.2-1.3) mg/dL AST (14-36) IU/L ALT (<35) IU/L Alkaline Phosphatase (38-126) U/L Ammonia (9-30) umol/L Total Creatine Kinase (30-135) U/L CK-MB (CK-2) CK-MB (CK-2) Rel Index Troponin I (0.01-0.034) ng/mL Total Protein (6.3-8.2) g/dL Albumin (3.5-5.0) g/dL Globulin (1.7-4.1) g/dL Albumin/Globulin Ratio (1.0-2.8) Lipase (23-300) U/L TSH (0.47-4.68) uIU/mL Free T4 (0.78-2.19) ng/dL Free T3 (2.77-5.27) pg/mL Random Cortisol 8.89 ug/dL Ethyl Alcohol ( - 10) mg/dL ECG Data Attestation: I personally reviewed and interpreted this ECG as follows: Interpretation: Sinus rhythm Ventricular rate of 55 First-degree AV block with a. Oral 4-5 6 Left axis deviation QTC [address] T wave changes MDM Narrative Medical decision making narrative: I was able to review the note from her primary doctor earlier today. Her labs obtained during this visit are consistent with their labs. A significantly elevated TSH and a very low free T3 and free T4. Patient is not hypotensive. She is not hypothermic. She is not altered but definitely is somewhat slow to answer questions. Her sodium is relatively unremarkable. I do suspect that her symptoms that she presents with today are related to her hypothyroidism. Patient does not specifically meet criteria for myxedema coma. Upon further questioning of the patient it appears she is not taken any of her thyroid medicine for at least 8 months and potentially up to a year. She is not hold her primary doctor about this. She states she was gaining weight while taking the medication and when she asked her primary doctor about why she needed to take it she felt like her primary doctor did not give her specific answer so she just decided to quit taking it on her own. I do feel given her presentation today that she does need admitted to the hospital for thyroid hormone replacement. I do feel that she can take this orally. She was given a dose here in the ER. Discussed the case with Dr. Arrieta who is the hospitalist on- call who will admit for further evaluation. I did discuss the need for admission with the patient. She expressed understanding and agreement. Discharge Plan Departure Patient Disposition: Admitted As Inpatient Clinical Impression: Hypothyroidism Admit Date/Time: 07/19/22 20:46 Admit Provider: Victor Manuel Arrieta
[2022-07-19 19:21] LABS: Alanine Aminotransferase 40 IU/L (<35); Albumin 4.7 g/dL (3.5-5.0); Albumin Globulin Ratio 1.4 (1.0-2.8); Alkaline Phosphatase 52 U/L (38-126); Ammonia (NH3) 15 umol/L (9-30); Aspartate Aminotransferase 53 IU/L (14-36); BUN Creatinine Ratio 14.9 (6-22); Bilirubin Total 0.7 mg/dL (0.2-1.3); Blood Urea Nitrogen 17 mg/dL (7-17); Calcium 10.4 mg/dL (8.4-10.2); Carbon Dioxide 35 mmol/L (22-32); Chloride 96 mmol/L (98-107); Creatine Kinase 655 U/L (30-135); Estimated Glomerular Filt Rate 51 mL/min (>60); Ethanol (ETOH) < 10 mg/dL; Globulin 3.4 g/dL (1.7-4.1); Glucose 97 mg/dL (80-110); HEMOLYSIS < 15 (0-50); Lipase 47 U/L (23-300); Magnesium 2.3 mg/dL (1.6-2.3); Potassium 3.3 mmol/L (3.4-5.1); Sodium 136 mmol/L (137-145); Total Protein 8.1 g/dL (6.3-8.2)
[2022-07-19 19:22] LABS: Lactate (Lactic Acid) 1.1 mmol/L (0.7-2.1)
[2022-07-19 19:32] LABS: Troponin I < 0.012 ng/mL (0.01-0.034)
[2022-07-19 19:38] LABS: Free T3, Triiodothyronine Free 0.94 pg/mL (2.77-5.27); Free T4, Direct Thyroxine < 0.07 ng/dL (0.78-2.19)
[2022-07-19 19:53] LABS: Cortisol Random 8.89 ug/dL
[2022-07-19 20:32] LABS: Thyroid Stimulating Hormone 147 uIU/mL (0.47-4.68)
--- NOTE | 2022-07-19 21:14 | PM.HP.1 ---
History of Present Illness History of Present Illness Date Patient Seen: 07/19/22 Time Patient Seen: 21:15 Date of Onset of Symptoms: 07/06/22 Chief complaint: ref/said concerning test results Narrative: The patient is a 72-year-old female who presents for abnormal labs. She has a history of hypothyroidism and is taking 88 Synthroid a day until about 8 months ago when she stopped. This standing of the indication provider. Simply weaker over the last several months and gained 40 lb. She finds that her labs were grossly abnormal with a TSH of 1 the patient notes that she is been progressively weaker and moving slower. She is also been constipated and has both cold and heat intolerance. She denies recent fevers, or chills. She also denies changes of her skin in the pretibial region. She has not been having mental status changes and in the ED not bradycardic but rather had transient periods of tachycaria. She was also not hypothermic or hypotensive. ED physician to admit her for observation and to start Synthroid therapy. Pharmacy noted the bio availability of Synthroid was 80% and recommended a dose of oral Synthroid over IV and we will start at 400 mg. Atrial flutter, rate controled on tele. [facility] Medical History Opioid use Social History household members: none Smoking Status: Current every day smoker alcohol intake: never Comment: She lives independently in a 1 bedroom apartment in [place]. She smokes about a half a pack of cigarettes a day and does not use alcohol. Meds Home Medications and Allergies Home Medications Medication Instructions Recorded Confirmed Type lisinopril 10 mg tablet 10 mg PO QDAY ##0 10/28/10 07/04/17 History hydrochlorothiazide 25 mg tablet 25 mg PO QDAY ##0 10/05/11 07/04/17 History clonazepam 1 mg tablet 1 mg PO TID 07/04/17 07/04/17 History cyanocobalamin (vitamin B-12) 1,000 mcg IM QMONTH 07/04/17 07/04/17 History 1,000 mcg/mL injection solution (Vitamin B-12) ergocalciferol (vitamin D2) 1,250 1 cap PO QWEEK 07/04/17 07/04/17 History mcg (50,000 unit) capsule (Vitamin D2) hydrocodone 5 mg-acetaminophen 325 1 tab PO BID 07/04/17 07/04/17 History mg tablet ([place]) levothyroxine 100 mcg tablet 100 mcg PO DAILY 07/04/17 07/04/17 History morphine 15 mg tablet,extended 15 mg PO BID 07/04/17 07/04/17 History release ondansetron 4 mg disintegrating 4 mg PO Q8H PRN nausea and 08/08/18 Rx tablet vomiting #7 tabs Allergies Allergy/AdvReac Type Severity Reaction Status Date / Time gabapentin [From Neurontin] Allergy Unknown Verified 08/08/18 13:15 Review of Systems Review of Systems Narrative: She denies fevers, or URI symptoms. No mental confusion. No weakness of sleepiness. She does have lethargy. She notes weight gain her urine has been dark for about a week. She denies any blood per rectum. All else reviewed and otherwise negative. Exam Vital Signs (past 8 hours): - 07/19/22 18:49 07/19/22 19:00 07/19/22 20:28 Temperature 97.1 F L Pulse Rate 67 64 Respiratory Rate 16 30 H Blood Pressure 118/61 Pulse Oximetry 96 96 97 Oxygen Delivery Method Room Air Room Air Nasal Cannula Oxygen Flow Rate 2 07/19/22 19:10 07/19/22 19:10 07/19/22 19:15 Temperature Pulse Rate 63 62 Respiratory Rate 18 16 Blood Pressure 130/63 Pulse Oximetry 94 95 Oxygen Delivery Method Room Air Room Air Oxygen Flow Rate 07/19/22 19:15 07/19/22 19:30 07/19/22 19:35 Temperature Pulse Rate 130 H 180 H Respiratory Rate 18 14 Blood Pressure 118/60 Pulse Oximetry 93 93 Oxygen Delivery Method Room Air Room Air Oxygen Flow Rate 07/19/22 19:35 07/19/22 19:46 07/19/22 19:46 Temperature Pulse Rate 190 H Respiratory Rate 15 Blood Pressure 122/59 L 122/76 Pulse Oximetry 94 Oxygen Delivery Method Room Air Oxygen Flow Rate 07/19/22 20:00 07/19/22 20:00 07/19/22 20:15 Temperature Pulse Rate 55 L Respiratory Rate 12 Blood Pressure 98/56 L 107/58 L Pulse Oximetry Oxygen Delivery Method Oxygen Flow Rate 07/19/22 20:15 Temperature Pulse Rate 56 L Respiratory Rate 18 Blood Pressure Pulse Oximetry 95 Oxygen Delivery Method Oxygen Flow Rate Oxygen Delivery Method Nasal Cannula Oxygen Flow Rate 2 Narrative Exam Narrative: She is alert and oriented x3, relatively calm.? Shee has normal judgment and slow regular speech. ? Head is atraumatic.? Eyes are notable for symmetric pupils and anicteric sclera. ? Neck is supple with normal range of motion, normal thyroid.? No adenopathy. ? Lungs are clear to auscultation with normal rate and effort. ? Heart is regular in rate and rhythm, with out murmur. ? Abdomen is soft, non-distended.? No focal tenderness, guarding or rebound. ? Extremities are free of edema with good pedal pulses. No pre-tibial myxedema. ? Skin is free of rash, or lesions. ? Muscles with normal tone, joints are negative for deformity. ? Neurologically patient has normal cranial nerves and normal motor strength in all extremities. Objective Labs 07/19/22 18:55 07/19/22 18:55 Labs: Laboratory Results - last 24 hr 07/19/22 07/19/22 07/19/22 18:55 18:55 18:55 WBC 10.7 RBC 4.42 Hgb 14.6 Hct 42.5 MCV 96.1 MCH 32.9 MCHC 34.3 RDW 15.1 H Plt Count 221 Neut % (Auto) 52.0 Lymph % (Auto) 36.3 Dewitt % (Auto) 8.1 Eos % (Auto) 2.5 Baso % (Auto) 1.1 Neut # (Auto) 5500 Lymph # (Auto) 3900 Dewitt # (Auto) 900 Eos # (Auto) 300 Baso # (Auto) 100 Sodium 136 L Potassium 3.3 L Chloride 96 L Carbon Dioxide 35 H BUN 17 Creatinine 1.14 H Estimated GFR 51 L BUN/Creatinine Ratio 14.9 Glucose 97 Lactate Calcium 10.4 H Magnesium 2.3 Total Bilirubin 0.7 AST 53 H ALT 40 H Alkaline Phosphatase 52 Ammonia Total Creatine Kinase 655 H CK-MB (CK-2) TNP CK-MB (CK-2) Rel Index TNP Troponin I < 0.012 Total Protein 8.1 Albumin 4.7 Globulin 3.4 Albumin/Globulin Ratio 1.4 Lipase 47 TSH Free T4 < 0.07 L Free T3 0.94 L Random Cortisol Ethyl Alcohol < 10 07/19/22 07/19/22 07/19/22 18:55 18:55 18:55 WBC RBC Hgb Hct MCV MCH MCHC RDW Plt Count Neut % (Auto) Lymph % (Auto) Dewitt % (Auto) Eos % (Auto) Baso % (Auto) Neut # (Auto) Lymph # (Auto) Dewitt # (Auto) Eos # (Auto) Baso # (Auto) Sodium Potassium Chloride Carbon Dioxide BUN Creatinine Estimated GFR BUN/Creatinine Ratio Glucose Lactate 1.1 Calcium Magnesium Total Bilirubin AST ALT Alkaline Phosphatase Ammonia 15 Total Creatine Kinase CK-MB (CK-2) CK-MB (CK-2) Rel Index Troponin I Total Protein Albumin Globulin Albumin/Globulin Ratio Lipase TSH 147 H Free T4 Free T3 Random Cortisol Ethyl Alcohol 07/19/22 18:55 WBC RBC Hgb Hct MCV MCH MCHC RDW Plt Count Neut % (Auto) Lymph % (Auto) Dewitt % (Auto) Eos % (Auto) Baso % (Auto) Neut # (Auto) Lymph # (Auto) Dewitt # (Auto) Eos # (Auto) Baso # (Auto) Sodium Potassium Chloride Carbon Dioxide BUN Creatinine Estimated GFR BUN/Creatinine Ratio Glucose Lactate Calcium Magnesium Total Bilirubin AST ALT Alkaline Phosphatase Ammonia Total Creatine Kinase CK-MB (CK-2) CK-MB (CK-2) Rel Index Troponin I Total Protein Albumin Globulin Albumin/Globulin Ratio Lipase TSH Free T4 Free T3 Random Cortisol 8.89 Ethyl Alcohol Assessment & Plan Assessment and plan (1) Hypothyroidism: Status: Acute Assessment & Plan narrative: 1. Severe hypothyroidism, present on admission and active. Plan is oral Synthroid 400 mcg daily and IV fluids. Advance activity with physical therapy in the morning. 2. Atrial Flutter on telemetry, present on admission and active. This is rate controlled. ECG in a bent and echo is ordered. 3. Nicotine dependence, present on admission and active. Nicoderm patch 14 mg daily. 4. Hypertension, present on admission and active. Will monitor blood pressure tonight and continue home medications. She is full resuscitation. Time Spent With Patient Time with patient: 30 to 49 minutes with 50% spent counseling/coordinating care
[2022-07-19] MEDS: LEVOTHYROXINE 100 MCG TABLET 400 MCG PO (21:26)
[2022-07-19] MEDS: SODIUM CHLORIDE 0.9% 1,000 ML 100 ML IV (22:15)
[2022-07-19] MEDS: OXYCODONE IR 10 MG TABLET PO (22:20)
[2022-07-19] MEDS: ACETAMINOPHEN 325 MG TABLET 650 MG PO (22:20)
--- NOTE | 2022-07-19 22:23 | PC.NURSE ---
2218- Monitor shows AFlutter Slow Ventricular Response rate 53. Dr. Arrieta notified no history of Flutter on patient chart. [place] SPARKS notified. Will monitor.
[2022-07-19] MEDS: NICOTINE 14 PATCH 14 MG TOP (22:51)
[2022-07-20] VITALS: BP 117/58; PULSE 55; RESP 18; TEMP 35.9; O2SAT 96
[2022-07-20 04:00] VITALS: BP 107/55; PULSE 51; RESP 17; TEMP 37.2; O2SAT 96
[2022-07-20 04:44] LABS: UR Morphine/Opiate cutoff 300 Positive (Negative); Ur Creatinine Normal (Normal); Ur Specific Gravity Normal (Normal); Urine Amphetamines Negative (Negative); Urine Barbiturates Negative (Negative); Urine Benzodiazepines Negative (Negative); Urine Cocaine Negative (Negative); Urine MDMA Negative (Negative); Urine Methadone Negative (Negative); Urine Methamphetamines Negative (Negative); Urine Oxycodone Positive (Negative); Urine Phencyclidine Negative (Negative); Urine Tetrahydrocannabinol Negative (Negative); Urine Tricyclic Antidepressant Negative (Negative); Urine pH Normal (Normal)
[2022-07-20 06:03] LABS: Add Manual Diff / Slide Review NO; Basophils Absolute Auto 100 /uL (0-100); Basophils Percent Auto 1.2 % (0-2); Eosinophils Absolute Auto 200 /uL (0-450); Eosinophils Percent Auto 3.2 % (2-4); Hemoglobin 13.6 g/dL (12.0-16.0); Lymphocytes Absolute Auto 2700 /uL (1100-4500); Lymphocytes Percent Auto 36.9 % (25-40); Mean Corpuscular HGB Conc 33.9 % (30-36); Mean Corpuscular Hemoglobin 32.8 PG (26-34); Mean Corpuscular Volume 96.8 fL (80-100); Monocytes Absolute Auto 600 /uL (0-900); Monocytes Percent Auto 7.8 % (3-14); Neutrophils Absolute Auto 3700 /uL (1500-7000); Neutrophils Percent Auto 50.9 % (50-75); Platelet Count 193 X10^3/uL (150-400); Red Blood Cell Count 4.14 X10^6/uL (4.0-5.2); Red Cell Distribution Width 15.4 % (11.6-14.8); White Blood Cell Count 7.2 X10^3/uL (4.5-11.0)
[2022-07-20] MEDS: LEVOTHYROXINE 100 MCG TABLET 400 MCG PO (06:07)
[2022-07-20] MEDS: OXYCODONE IR 10 MG TABLET PO ×3 (06:07→18:52)
[2022-07-20] MEDS: ACETAMINOPHEN 325 MG TABLET 650 MG PO ×2 (06:08→17:51)
[2022-07-20 06:09] LABS: BUN Creatinine Ratio 13.8 (6-22); Blood Urea Nitrogen 15 mg/dL (7-17); Calcium 9.3 mg/dL (8.4-10.2); Carbon Dioxide 33 mmol/L (22-32); Chloride 101 mmol/L (98-107); Estimated Glomerular Filt Rate 53 mL/min (>60); Glucose 97 mg/dL (80-110); HEMOLYSIS < 15 (0-50); Potassium 3.1 mmol/L (3.4-5.1); Sodium 138 mmol/L (137-145)
[2022-07-20] MEDS: POTASSIUM CHLORIDE 20 MEQ TAB 40 MEQ PO (07:40)
[2022-07-20] MEDS: SODIUM CHLORIDE 0.9% 1,000 ML 100 ML IV (07:41)
[2022-07-20 08:00] VITALS: BP 132/54; PULSE 56; RESP 17; TEMP 36.3; O2SAT 96
[2022-07-20] MEDS: DOCUSATE 100 MG CAPSULE PO ×2 (08:55→20:28)
[2022-07-20] MEDS: HEPARIN 5,000 UNIT/ML VIAL 5000 UNIT SUBCUT ×2 (08:55→20:27)
--- NOTE | 2022-07-20 10:49 | PT.IIE ---
Current Diagnoses Hypothyroidism, unspecified (07/19/22) Medical History (Last Reviewed 07/20/22 @ 00:15 by Hakan Lovett DO) Opioid use Physical Therapy Inpatient Evaluation/Re-Eval M1 PT/OT-IP Prior Functional Status Start: 07/20/22 12:55 Freq: NEEDED Status: Active Protocol: Document 07/20/22 10:49 AB (Rec: 07/20/22 13:15 AB [id number]) Medical Review Prior Functional Status Medical History Reviewed Yes Communication able to make needs known Mobility and Gait pt stated that she is modified independent with all mobilities and ambulation using either her 4WW or SPC but also tends to furniture cruise. stated that she uses shopping carts to lean on when she goes grocery shopping but has not been able to drive and her friend does her groceries at this time. Social History Household Members none Living Arrangements Apartment/Condo Number of Floors (Floors) One Floor Number of Stairs To Enter/Railing? 1 step to enter Home Environment Standard Height Toilet,Tub/ Shower Home Equipment Four Wheel Walker,Straight Cane,Shower Seat with Backrest ,Grab Bars Near Toilet,Grab Bars In Shower Additional Social History Comment stated that her cousin lives a few doors away from her and also has a friend Hakan who can help her pt sleeps on her recliner M2 PT-IP Current Condition Start: 07/20/22 12:55 Freq: NEEDED Status: Active Protocol: Document 07/20/22 10:49 AB (Rec: 07/20/22 13:15 AB [email or web address]) Physical Therapy Current Condition Current Condition Evaluation Date 07/20/22 Treatment Diagnosis hypothyroidism; difficulty in walking Onset Date 07/19/22 M3 PT-IP Subjective Start: 07/20/22 12:55 Freq: NEEDED Status: Active Protocol: Document 07/20/22 10:49 AB (Rec: 07/20/22 13:15 AB [email or web address]) Subjective Physical Therapy Visit Type Type Initial Evaluation Visit Start Time 10:49 Visit Stop Time 11:31 Total Visit Minutes 42 Number of PERSONNEL CONSULTANT Visits 0 Physical Therapy Visit Comments Patient Comments requesting to use the toilet M4 PT-IP Mobility and Gait Start: 07/20/22 12:55 Freq: NEEDED Status: Active Protocol: Document 07/20/22 10:49 AB (Rec: 07/20/22 13:15 AB [email or web address]) PT-Bed Mobility Assessment Supine to Sit Supine to Sit Standby Assistance,Head of Bed Elevated Sit to Supine Sit to Supine Minimal Assistance PT-Transfer Assessment Sit to and From Stand Sit to and from Stand Contact Guard Assistance,1 Person Assistance,Use of Upper Extremities Equipment Transfer Assistive Device Gait Belt,4 Wheeled Walker Orthotic/Prosthetic Devices or Brace: No Transfers Transfer Destination Toilet Transfer Technique ambulated Transfer Ability Level of Assist Contact Guard Assistance, Minimal Assistance,1 Person Assistance,Use of Upper Extremities Comments Mobility Comments pt supine in bed and wanting to use the toilet and just sat up needing cues to wait for PT to set up. completed sit to stand CGA and ambulated to the toilet using 4WW CGA to min A and max cues. pt presents with unsteady gait and moving 4WW too far forward from her during ambulation requiring cues and min A for repositioning. pt also tends to leave 4WW and will just hold on to the wall for support. educated pt on safety and use of 4WW at all times. pt with slow processing of instructions requiring increase time to complete all tasks. CGA for sit to stand from the toilet and ambulated towards the sink using 4WW CGA to min A. (+) LOB requiring min A for recovery. able to stand by the sink leaning against the counter CGA while completing handwashing. (+) LOB again min A. pt ambulated to the chair using 4WW CGA to occasional min A. positioned pt on the chair. Staff needing to do EKG on pt came and wants pt back into the bed . pt completed chair to bed transfer CGA to min A using 4WW and cues again for use of 4WW. positioned pt in bed. Left pt with ambulatory technologist. Gait Assessment Gait Gait Assistance Required: Contact Guard Assist,Minimum Assistance,1 Person Assist Distance (Feet) 12 Able to Maintain Weight Bearing Status Yes During Gait Assistive Devices Assistive Device Gait Belt,4 Wheeled Walker Orthotic/Prosthetic Devices or Brace: No Gait Deviations General Gait Pattern Ataxic,Decreased Stride Length ,Decreased Feet Clearance Factors Limiting Gait Function Factors Limiting Gait Function Decreased Activity Tolerance, Decreased Strength,Difficulty Following Directions,Poor Balance,Poor Safety Awareness PT-Balance Assessment Sitting Balance and Reactions Static Sitting Balance Ability Normal Dynamic Sitting Balance Ability Good Standing Balance and Reactions Static Standing Balance Ability Fair Dynamic Standing Balance Ability Fair Device Used 4WW M5 PT-IP Objective Assessments Start: 07/20/22 12:55 Freq: NEEDED Status: Active Protocol: Document 07/20/22 10:49 AB (Rec: 07/20/22 13:15 AB [email or web address]) Orientation Orientation/Cognition Level of Alertness Alert Orientation Name Safety Awareness Decreased Safety Awareness Memory Description Short Term Impaired Gross Range of Motion Lower Extremity ROM Assessment Within Functional Limits Muscle Tone Muscle Tone WNL Yes M6 PT-IP Treatment Start: 07/20/22 12:55 Freq: NEEDED Status: Active Protocol: Document 07/20/22 10:49 AB (Rec: 07/20/22 13:15 AB [email or web address]) Physical Therapy Treatment Education Education Provided Safety M7 PT-IP Assessment and Plan Start: 07/20/22 12:55 Freq: NEEDED Status: Active Protocol: Document 07/20/22 10:49 AB (Rec: 07/20/22 13:15 AB [email or web address]) PT Summary Assessment and Plan Potential Rehabilitation Potential Fair Status of Condition at Evaluation Evolving Summary Impairments Pain,ROM,Strength,Balance, Coordination,Sensation,Tone, Cognition,Bed Mobility, Transfers,Gait,Activity Tolerance Assessment Summary pt admitted for hypothyrodism. Pt stated that she has not been taking her medication because her nurse or doctor did not tell her why she needs to take it. pt requiring CGA to min A with mobility at this time using 4WW and has few instances of LOB and needs max cues for walker use and safety awareness. pt requiring increase time to complete all task . d/c plan depending on progress but may require SNF rehab at this time. will continue to assess progress. Goals Bed Mobility Goal Independent Transfer Goal Independent,Four Wheeled Walker Gait Goal Independent,Four Wheel Walker Gait Distance 150 Other Goals up/down 1 step using 4WW/SPC SBA improve transfers and ambulation using SPC 250 ft SBA Days to Meet Goals 10 Frequency of Treatment Frequency Of Treatment Once a Day Treatment Plan Physical Therapy Treatment Plan Bed Mobility Training,Transfer Training,Gait Training, Therapeutic Exercise,Balance Retraining,Discharge Planning, Hot or Cold Pack,Neuromuscular Re-ed,Coordination Retraining ,Manual Therapy Precautions Other Precautions falls Recommendations To Nursing Amount of Assist Needed 1 Person Assist Discharge Recommendations PT Discharge Recommendations Home vs SNF Transportation Needs at Discharge Private Vehicle,Wheelchair/ Cabulance
--- NOTE | 2022-07-20 11:01 | CM.DANOTE ---
Addendum entered by Carlota Goodman R.N. 07/20/22 14:37: Attempted to meet with patient to go over skilled rehab facilities, but patient is currently sleeping. Called Tonya over at [facility] and asked her to review. Can attempt to meet again with patient either later today, or tomorrow, to discuss [facility] facilities. Plan is either home with [facility], or [facility], if accepted by certain facility, [facility] has referral. Will see if she improves with therapy tomorrow, and if her thyroid levels improve. Addendum entered by Carlota Goodman R.N. 07/20/22 13:40: Confirmed that patient is inpatient status at this time, but hospitalist is keeping patient another day, due to cognition concerns. Went ahead and faxed [facility] face sheet, face to face (RN, P.T, O.T, ARBOREAL SCIENTIST), orders, and H&P, as well as P.T. P.T is recommending mcc. Will meet with patient again, and discuss skilled options. Addendum entered by Carlota Goodman R.N. 07/20/22 12:10: Met with patient, brought in ipad and Medicare Choice List and patient decided she wants [facility]. Her cousin, Raisa, was at bedside. She gave contact number of: [phone], and can also help with gettting medications picked up, or set up for delivery. Will call Lukas at [email or web address], and let him know about referral, and will send face to face and orders. Addendum entered by Carlota Goodman R.N. 07/20/22 11:24: Called [facility], and stated that patient has not had Medicaid since Mar 2021, due to SSI income, and also was denied [place], due limited medical bills. Original Note: DCP: Case received EMR reviewed and met with patient. Introduced self and role. Was able to obtain information regarding patient's baseline activity status at home, as well as her current living situation. DCP assessment completed with information currently available. Patient is a 72 year old female who admitted yesterday evening to the care of the hospitalist team. PCP: Dr. Quinn. Payer: confirmed: Medicare. Patient came to the hospital sent from her provider at her PCP office, secondary to having a significantly elevated TSH, and also noted low T3 and T4. Notes indicate that patient had not been taking her thyroid medication for close to a year, due to concerns of weight gain. She did not feel a need to take the medication. Patient diagnosed with hypotension, as well as A-flutter. Patient is receiving Synthroid therapy. Met with patient in her room. Patient is alert and oriented, was sitting up in her chair. Confirmed that she resides in [facility] next to the hospital, alone. At her baseline, she uses a four wheel walker when she goes outside, not in the home. She does not drive. Her mother is the only listed contact who is in a facility in [facility], and is blind. Patient indicated, she has not seen her mother since [place]. She does talk to her on the phone, however. She has a brother, who is not biological, named Hakan, who resides in [place] who drives, and takes her to appointments and shopping. She stated that her biological brother at 50 secondary to alcohol abuse. Asked patient if she would be interested in home health, to have a nurse come in and assess medication, labs if needed. She would appreciate this service. She has P.T. orders, pending how she does with the therapy team, as well. It is noted that patient did have Medicaid at one time, has , but will still follow up with Aging and Disability, to see if patient has or had a [facility] complex case manager at any time. May add ARBOREAL SCIENTIST as well, for resources in transportation. P: DCP to continue to follow. Will meet with patient again today to discuss which home health agency that she would be interested in. Have completed face to face, patient could possibly discharge home today. Carlota Goodman RN/Nick Setter Discharge Planning/Care Management Discharge Assessment Start: 07/20/22 10:57 Freq: Status: Active Protocol: Document 07/20/22 10:57 (Rec: 07/20/22 11:01 [email or web address]) Discharge Planning Assessment Assigned Black Powder Glazing Operator Carlota Goodman RN/Nick Setter Advance Directives? No History Provided By Patient,Medical Record Prior Living Arrangements Apartment/Condo Household Members none Type of transporation used prior to Relies on Others admit Independent with ADL's Yes Is patient alert and oriented? Yes Needs Assistance With Managing Medications,Home Chores / Shopping Comment Will order home health nursing Caregiver for Another No DME Already Rented / Owned FWW / Walker Comment Patient uses four wheel walker mainly outside Patient/Family Preference Home with Home Health Barriers to Discharge No Comment Medication compliance, but has insight to understand that she needs to go back on her med. Discharge Plan Home with Home Health Transportation Arrangement May need taxi services. Referrals Initiated Home Health Additional Comment Have not yet gone over home health agencies with patient as of yet, will meet with her before dischage. If patient plan is home with home health Yes : Has signed face to face form been completed? Medicare Choice List Provided Yes Medicare choice list reviewed on patient electronic tablet with SNF/HH Preference Pending, patient to make decision today Comment Will contact as soon as patient decides upon agency Whiteboard Updated in Patient Room with Yes name and ext. # of Black Powder Glazing Operator Review Status In Process Next Review Type Continued Stay Review
[2022-07-20 12:00] VITALS: BP 98/48; PULSE 49; RESP 17; TEMP 36.4; O2SAT 100
--- NOTE | 2022-07-20 13:43 | PM.PN.1 ---
Subjective Subjective Interval history: 72 F admitted with severe hypothyroidism, she still seems a bit confused today, with continued lethargy, though her baseline is not entirely clear. She was fairly unstable when ambulating with PT, OT also consulted today. She is on large doses of levothyroxine, with limited hospital availability of IV levothyroxine and working with pharmacy, patient tolerating oral will continue with this therspy. Needs repeat TSH on 07/21 to make sure therapy is improving. She had a random cortisol yesterday PM, will check AM cortisol tomorrow. TTE normal today, aflutter likely due to hypothyroidism. May need SNF for rehab depending on progress. Exam Vital Signs (past 8 hours): - 07/20/22 08:00 Temperature 97.3 F L Pulse Rate 56 L Respiratory Rate 17 Blood Pressure 132/54 L Pulse Oximetry 96 Oxygen Flow Rate 0 Oxygen Delivery Method Nasal Cannula Oxygen Flow Rate 0 Narrative Exam Narrative: She is alert and oriented x3, relatively calm.? Seems slightly confused, slow responses. ? Head is atraumatic.? Eyes are notable for symmetric pupils and anicteric sclera. She reports swollen face consistent with myxedema. ? Neck is supple with normal range of motion, normal thyroid.? No adenopathy. ? Lungs are clear to auscultation with normal rate and effort. ? Heart is regular in rate and rhythm, with out murmur. ? Abdomen is soft, non-distended.? No focal tenderness, guarding or rebound. ? Extremities are free of edema with good pedal pulses. ? Skin is free of rash, or lesions. ? Muscles with normal tone, joints are negative for deformity. ? Neurologically patient has normal cranial nerves and normal motor strength in all extremities. Objective Labs 07/20/22 04:55 07/20/22 04:55 Labs: Laboratory Results - last 24 hr 07/19/22 07/19/22 07/19/22 18:55 18:55 18:55 WBC 10.7 RBC 4.42 Hgb 14.6 Hct 42.5 MCV 96.1 MCH 32.9 MCHC 34.3 RDW 15.1 H Plt Count 221 Neut % (Auto) 52.0 Lymph % (Auto) 36.3 [place] % (Auto) 8.1 Eos % (Auto) 2.5 Baso % (Auto) 1.1 Neut # (Auto) 5500 Lymph # (Auto) 3900 [place] # (Auto) 900 Eos # (Auto) 300 Baso # (Auto) 100 Sodium 136 L Potassium 3.3 L Chloride 96 L Carbon Dioxide 35 H BUN 17 Creatinine 1.14 H Estimated GFR 51 L BUN/Creatinine Ratio 14.9 Glucose 97 Lactate Calcium 10.4 H Magnesium 2.3 Total Bilirubin 0.7 AST 53 H ALT 40 H Alkaline Phosphatase 52 Ammonia Total Creatine Kinase 655 H CK-MB (CK-2) TNP CK-MB (CK-2) Rel Index TNP Troponin I < 0.012 Total Protein 8.1 Albumin 4.7 Globulin 3.4 Albumin/Globulin Ratio 1.4 Lipase 47 TSH Free T4 < 0.07 L Free T3 0.94 L Random Cortisol U Opiates 300ng/mL cut Ur Oxycodone Screen Urine Methadone Screen Ur Barbiturates Screen U Tricyclic Antidepress Ur Phencyclidine Scrn Ur Amphetamines Screen U Methamphetamines Scrn Ur MDMA Scrn (Ecstasy) U Benzodiazepines Scrn Urine Cocaine Screen U Marijuana (THC) Screen Ethyl Alcohol < 10 07/19/22 07/19/22 07/19/22 18:55 18:55 18:55 WBC RBC Hgb Hct MCV MCH MCHC RDW Plt Count Neut % (Auto) Lymph % (Auto) [place] % (Auto) Eos % (Auto) Baso % (Auto) Neut # (Auto) Lymph # (Auto) [place] # (Auto) Eos # (Auto) Baso # (Auto) Sodium Potassium Chloride Carbon Dioxide BUN Creatinine Estimated GFR BUN/Creatinine Ratio Glucose Lactate 1.1 Calcium Magnesium Total Bilirubin AST ALT Alkaline Phosphatase Ammonia 15 Total Creatine Kinase CK-MB (CK-2) CK-MB (CK-2) Rel Index Troponin I Total Protein Albumin Globulin Albumin/Globulin Ratio Lipase TSH 147 H Free T4 Free T3 Random Cortisol U Opiates 300ng/mL cut Ur Oxycodone Screen Urine Methadone Screen Ur Barbiturates Screen U Tricyclic Antidepress Ur Phencyclidine Scrn Ur Amphetamines Screen U Methamphetamines Scrn Ur MDMA Scrn (Ecstasy) U Benzodiazepines Scrn Urine Cocaine Screen U Marijuana (THC) Screen Ethyl Alcohol 07/19/22 07/20/22 07/20/22 18:55 03:30 04:55 WBC 7.2 RBC 4.14 Hgb 13.6 Hct 40.0 MCV 96.8 MCH 32.8 MCHC 33.9 RDW 15.4 H Plt Count 193 Neut % (Auto) 50.9 Lymph % (Auto) 36.9 [place] % (Auto) 7.8 Eos % (Auto) 3.2 Baso % (Auto) 1.2 Neut # (Auto) 3700 Lymph # (Auto) 2700 [place] # (Auto) 600 Eos # (Auto) 200 Baso # (Auto) 100 Sodium Potassium Chloride Carbon Dioxide BUN Creatinine Estimated GFR BUN/Creatinine Ratio Glucose Lactate Calcium Magnesium Total Bilirubin AST ALT Alkaline Phosphatase Ammonia Total Creatine Kinase CK-MB (CK-2) CK-MB (CK-2) Rel Index Troponin I Total Protein Albumin Globulin Albumin/Globulin Ratio Lipase TSH Free T4 Free T3 Random Cortisol 8.89 U Opiates 300ng/mL cut Positive H Ur Oxycodone Screen Positive H Urine Methadone Screen Negative Ur Barbiturates Screen Negative U Tricyclic Antidepress Negative Ur Phencyclidine Scrn Negative Ur Amphetamines Screen Negative U Methamphetamines Scrn Negative Ur MDMA Scrn (Ecstasy) Negative U Benzodiazepines Scrn Negative Urine Cocaine Screen Negative U Marijuana (THC) Screen Negative Ethyl Alcohol 07/20/22 04:55 WBC RBC Hgb Hct MCV MCH MCHC RDW Plt Count Neut % (Auto) Lymph % (Auto) [place] % (Auto) Eos % (Auto) Baso % (Auto) Neut # (Auto) Lymph # (Auto) [place] # (Auto) Eos # (Auto) Baso # (Auto) Sodium 138 Potassium 3.1 L Chloride 101 Carbon Dioxide 33 H BUN 15 Creatinine 1.09 H Estimated GFR 53 L BUN/Creatinine Ratio 13.8 Glucose 97 Lactate Calcium 9.3 Magnesium Total Bilirubin AST ALT Alkaline Phosphatase Ammonia Total Creatine Kinase CK-MB (CK-2) CK-MB (CK-2) Rel Index Troponin I Total Protein Albumin Globulin Albumin/Globulin Ratio Lipase TSH Free T4 Free T3 Random Cortisol U Opiates 300ng/mL cut Ur Oxycodone Screen Urine Methadone Screen Ur Barbiturates Screen U Tricyclic Antidepress Ur Phencyclidine Scrn Ur Amphetamines Screen U Methamphetamines Scrn Ur MDMA Scrn (Ecstasy) U Benzodiazepines Scrn Urine Cocaine Screen U Marijuana (THC) Screen Ethyl Alcohol PFSH Medical History Opioid use Social History household members: none Smoking Status: Current every day smoker alcohol intake: never Assessment & Plan Assessment and plan (1) Hypothyroidism: Status: Acute Assessment & Plan narrative: 1. Severe hypothyroidism, with acute metabolic encephalopathy and concern for myxedema coma. - patient presents with myxedema of her face, TSH 147, undetectable free t4 and likely acute metabolic encephalopathy after evaluation today. She is borderline hypothermic and mildly bradycardic today, mild hypotension as well. Presented with rate controlled atrial flutter. Baseline mentation unable to be determined at this time, but patient lives alone in a duplex. - she reports improvement with initial dose of 400 mcg of levothyroxine. Will continue after discussion with pharmacy. Recheck TSH on 07/22 AM. - borderline random cortisol yesterday evening, will give steroids today for concern for myxedema coma, can stop if AM cortisol tomorrow is within normal limits. - consider endocrinology consultation depending on response to therapies. 2. Atrial Flutter on telemetry, present on admission and active - suspect in setting of hypothyroid. Will continue telemetry and is currently in sinus rhythm. 3. Nicotine dependence, present on admission and active. Nicoderm patch 14 mg daily. 4. Hypertension, present on admission and active. Will monitor blood pressure tonight and continue home medications. She is full resuscitation. Dispo: inpatient, may need SNF in 2-3 days depending on improvement with steroids and thyroid hormone. Time Spent With Patient Time with patient: 30 to 49 minutes with 50% spent counseling/coordinating care Quality MIPS - Admit I confirm the patient?s Advance Care Plan is present, Code status is documented, Surrogate decision maker is in patient?s record [If Yes, STOP here]: Yes
--- NOTE | 2022-07-20 14:56 | OT.IPNOTE ---
Attempted to see pt for OT eval and pt states too tired and promised to work with OT tomorrow morning.
[2022-07-20] MEDS: HYDROCORTISONE 100 MG/2 ML VIAL IV ×2 (15:20→22:25)
[2022-07-20 16:00] VITALS: BP 99/53; PULSE 51; RESP 17; TEMP 36.2; O2SAT 97
[2022-07-20 20:00] VITALS: BP 121/60; PULSE 58; RESP 17; TEMP 36.1; O2SAT 94
[2022-07-20] MEDS: NICOTINE 21 MG PATCH TOP (20:27)
--- NOTE | 2022-07-20 22:31 | DI.ECHO.S_ITS ---
[facility]---------+ [facility] +---------+ : : [address] : : : : [id number] : : : : Phone: [phone]+ Echocardiogram Report + + :Name: CYDNEY NESBITT I Study Date: 07/20/2022 Height: 64 in : [facility] ReadingLocation: Weight: 176 lb : : Gender: Female BSA: 1.9 m2 : :: 1950 Age: 72 yrs BP: 107/55 mmHg: :Reason For Study: ATRIAL FLUTTER : :Ordering Physician: JASON, : :RAHUL Barry Performed By: Adriana Lawson : :Referring: RAHUL GOMEZ : + + Interpretation Summary 1) Normal left ventricular thickness, size, wall motion, and systolic function (EF 60-65%). 2) Normal right ventricular size and function. 3) No significant valvular abnormalities. 4) No prior Echo available for comparison. Procedure: A two-dimensional transthoracic echocardiogram with color flow and Doppler was performed. The study quality was technically adequate. There is no prior echocardiogram noted for this patient. The patient was in sinus bradycardia with heart rates between 47-50 bpm during the exam. Left Ventricle: The left ventricle is normal in size and wall thickness. The ejection fraction is estimated to be 65-70%. Left ventricular systolic function appears normal without focal wall motion abnormalities. Diastolic parameters suggest a relaxation abnormality of the left ventricle, consistent with probable normal filling pressures. Right Ventricle: The right ventricle is normal in size and function. Atria: The left atrial size is normal. Right atrial size is normal. There is no Doppler evidence for an interatrial shunt. Mitral Valve: The mitral valve is normal in structure and function. There is mild mitral regurgitation. Aortic Valve: The aortic valve is trileaflet. The aortic valve opens well. There is no aortic valve stenosis. No aortic regurgitation is present. Tricuspid Valve: The tricuspid valve is normal in structure and function. There is trace tricuspid regurgitation. The right ventricular systolic pressure is estimated to be at least 18 mmHg based on an estimated right atrial pressure of 3 mm Hg. Pulmonic Valve: The pulmonic valve leaflets are thin and pliable; valve motion is normal. There is no pulmonic valvular regurgitation. Great Vessels: The aortic root is normal size. The dimensions of the ascending aorta are normal. The IVC is of normal diameter and collapses greater than 50% with a sniff. This suggests a low right atrial pressure of 3 mm Hg. Pericardium/ Pleura There is no pericardial effusion. There is no pleural effusion. MMode/2D Measurements & Calculations LVIDd: 4.2 cm LVOT diam: 1.8 cm LVIDs: 2.7 cm Ao root diam: 3.2 cm FS: 35.7 % asc Aorta Diam: 3.2 cm IVSd: 0.90 cm LVPWd: 0.70 cm LV shelton. diameter/BSA (cm/m^2): 2.3 LV sys. diameter/BSA (cm/m^2): 1.5 LA A2 area: 17.4 cm2 RA long axis: 4.8 cm LA A4 area: 15.1 cm2 RA area: 14.0 cm2 LA length (vol): 5.1 cm RA vol: 34.1 ml LA vol: 43.4 ml RA : 18.4 ml/m2 LA vol index: 23.4 ml/m2 RVD1 (basal): 3.2 cm LVLs ap4: 5.4 cm RVD2 (mid): 2.8 cm LVLd ap2: 7.0 cm TAPSE_phl: 1.8 cm LVLs ap2: 5.0 cm Doppler Measurements & Calculations Ao V2 max: 121.0 cm/sec LVOT Max Yemi: 93.3 cm/sec Ao V2 mean: 90.4 cm/sec LV V1 max P.5 mmHg Ao max P.0 mmHg LV V1 VTI: 24.0 cm Ao mean P.0 mmHg LILLIAN(I,D): 2.0 cm2 Ao V2 VTI: 29.8 cm LILLIAN(V,D): 2.0 cm2 sev ratio: 0.81 LILLIAN indexed to BSA (cm^2/m^2): 1.1 MV E max yemi: 65.8 cm/sec TR max yemi: 193.0 cm/sec MV A max yemi: 61.5 cm/sec TR max P.9 mmHg MV E/A: 1.1 PA V2 max: 62.5 cm/sec Med Peak E' Yemi: 6.6 cm/sec PA V2 mean: 46.8 cm/sec E/E' med: 10.0 PA mean P.0 mmHg Lat Peak E' Yemi: 6.2 cm/sec PA pr(Accel): 40.8 mmHg E/E' lat: 10.6 E/e' average: 10.3 MV dec time: 0.26 sec SV(LVOT): 61.1 ml AV VR_phl: 0.77 LILLIAN(VTI)/BSA_phl: 1.1 MV P1/2t-pr_phl: 75.5 msec Reading Physician:08:35 AM
[2022-07-21] VITALS: BP 116/60; PULSE 58; RESP 19; TEMP 36.2; O2SAT 96
[2022-07-21 04:00] VITALS: BP 114/56; PULSE 68; RESP 18; TEMP 36.2; O2SAT 95
[2022-07-21] MEDS: LEVOTHYROXINE 100 MCG TABLET 400 MCG PO (05:36)
[2022-07-21] MEDS: HYDROCORTISONE 100 MG/2 ML VIAL IV (05:37)
[2022-07-21 06:17] LABS: Add Manual Diff / Slide Review NO; Basophils Absolute Auto 100 /uL (0-100); Eosinophils Absolute Auto 0 /uL (0-450); Eosinophils Percent Auto 0.1 % (2-4); Hematocrit 40.6 % (36-46); Hemoglobin 13.9 g/dL (12.0-16.0); Lymphocytes Absolute Auto 1300 /uL (1100-4500); Mean Corpuscular HGB Conc 34.3 % (30-36); Mean Corpuscular Hemoglobin 33.3 PG (26-34); Monocytes Absolute Auto 200 /uL (0-900); Monocytes Percent Auto 1.7 % (3-14); Neutrophils Absolute Auto 7800 /uL (1500-7000); Neutrophils Percent Auto 83.2 % (50-75); Platelet Count 192 X10^3/uL (150-400); Red Blood Cell Count 4.19 X10^6/uL (4.0-5.2); Red Cell Distribution Width 15.4 % (11.6-14.8); White Blood Cell Count 9.4 X10^3/uL (4.5-11.0)
[2022-07-21 06:24] LABS: Magnesium 2.4 mg/dL (1.6-2.3)
[2022-07-21 06:25] LABS: BUN Creatinine Ratio 15.3 (6-22); Blood Urea Nitrogen 15 mg/dL (7-17); Calcium 9.8 mg/dL (8.4-10.2); Carbon Dioxide 28 mmol/L (22-32); Chloride 104 mmol/L (98-107); Estimated Glomerular Filt Rate > 60 mL/min (>60); Glucose 131 mg/dL (80-110); HEMOLYSIS < 15 (0-50); Potassium 3.6 mmol/L (3.4-5.1); Sodium 138 mmol/L (137-145)
[2022-07-21 07:00] VITALS: BP 98/65; PULSE 61; RESP 17; TEMP 36.2; O2SAT 96
[2022-07-21 08:37] LABS: Cortisol AM (Before 10AM) 235 ug/dL (4.46-22.7)
[2022-07-21] MEDS: NICOTINE 21 MG PATCH TOP (08:43)
[2022-07-21] MEDS: ONDANSETRON 4 MG/2 ML INJ IV (08:43)
[2022-07-21] MEDS: HEPARIN 5,000 UNIT/ML VIAL 5000 UNIT SUBCUT ×2 (08:43→21:20)
[2022-07-21] MEDS: OXYCODONE IR 10 MG TABLET PO (09:16)
--- NOTE | 2022-07-21 09:35 | OT.IP.EVAL ---
Current Diagnoses Hypothyroidism, unspecified (07/20/22) Past Medical History (Last Reviewed 07/20/22 @ 00:15 by Hakan Lovett DO) Opioid use Occupational Therapy Inpatient Evaluation/Re-Eval M1 PT/OT-IP Prior Functional Status Start: 07/20/22 12:55 Freq: NEEDED Status: Active Protocol: Document 07/20/22 10:49 AB (Rec: 07/20/22 13:15 AB [id number]) Medical Review Prior Functional Status Medical History Reviewed Yes Communication able to make needs known Mobility and Gait pt stated that she is modified independent with all mobilities and ambulation using either her 4WW or SPC but also tends to furniture cruise. stated that she uses shopping carts to lean on when she goes grocery shopping but has not been able to drive and her friend does her groceries at this time. Social History Household Members none Living Arrangements Apartment/Condo Number of Floors (Floors) One Floor Number of Stairs To Enter/Railing? 1 step to enter Home Environment Standard Height Toilet,Tub/ Shower Home Equipment Four Wheel Walker,Straight Cane,Shower Seat with Backrest ,Grab Bars Near Toilet,Grab Bars In Shower Additional Social History Comment stated that her cousin lives a few doors away from her and also has a friend Hakan who can help her pt sleeps on her recliner M1 PT/OT-IP Prior Functional Status Start: 07/21/22 10:18 Freq: NEEDED Status: Active Protocol: Document 07/21/22 08:30 [facility] (Rec: 07/21/22 10:43 [facility] [id number]) Medical Review Prior Functional Status Medical History Reviewed Yes Communication able to make needs known Mobility and Gait pt stated that she is modified independent with all mobilities and ambulation using either her 4WW or SPC but also tends to furniture cruise. stated that she uses shopping carts to lean on when she goes grocery shopping but has not been able to drive and her friend does her groceries at this time. Activities of Daily Living and IADL's Pt states prior independent with all ADl and IADl needs. Social History Household Members none Living Arrangements Apartment/Condo Number of Floors (Floors) One Floor Number of Stairs To Enter/Railing? 1 step to enter Home Environment Standard Height Toilet,Tub/ Shower Home Equipment Four Wheel Walker,Straight Cane,Shower Seat with Backrest ,Grab Bars Near Toilet,Grab Bars In Shower Additional Social History Comment stated that her cousin lives a few doors away from her and also has a friend Hakan who can help her pt sleeps on her recliner M2 OT-IP Current Condition Start: 07/21/22 10:18 Freq: Status: Active Protocol: Document 07/21/22 08:30 [facility] (Rec: 07/21/22 10:43 [facility] [id number]) Occupational Therapy Current Condition Current Condition Evaluation Date 07/21/22 Treatment Diagnosis Sever hypothyroidism Diagnosis Onset Date 07/21/22 M3 OT- IP Subjective and Pain Start: 07/21/22 10:18 Freq: Status: Active Protocol: Document 07/21/22 08:30 [facility] (Rec: 07/21/22 10:43 [facility] [id number]) OT- Subjective Occupational Therapy Visit Type Type Initial Evaluation Visit Start Time 08:30 Visit Stop Time 09:35 Total Visit Minutes 31 Notes Pt seen for split treatment [id number] and [id number] Occupational Therapy Visit Comments Patient Comments Pt too nauseous to get up but willing to do SLUMS and OT eval. Patient/Caregiver Goals TO go to skilled rehab to get stronger. M4 OT- IP ADL's Start: 07/21/22 10:18 Freq: Status: Active Protocol: Document 07/21/22 08:30 [facility] (Rec: 07/21/22 10:43 [facility] [id number]) OT [id number] Comments OT Self-Feeding Comments Not at meal time. OT ADL-Grooming Comments OT Grooming Comments NOt performed. OT ADL-Oral Care Comments Oral Care Comments Not performed. OT ADL-Dressing Comments OT Dressing Comments Not performed. OT ADL-Toileting Comments OT Toileting Comments Not performed. OT ADL-Bathing Comments OT Bathing Comments Not performed. M5 OT- IP IADL's Start: 07/21/22 10:18 Freq: Status: Active Protocol: Document 07/21/22 08:30 [facility] (Rec: 07/21/22 10:43 [facility] [id number]) OT-Instrumental Activities of Daily Living Home Safety Awareness Home Safety Comments Pt states stressed and therefore states does not think well when stressed. M6 OT- IP Functional Cognition Start: 07/21/22 10:18 Freq: Status: Active Protocol: Document 07/21/22 08:30 [facility] (Rec: 07/21/22 10:43 [facility] [id number]) Cognitive Factors Limiting Selfcare Function Cognitive Ability Level of Alertness Alert Patient Orientation Name,Year,Day of Week,Place, Situation Attention Span Ability Capable of Focused Attention, Capable of Sustained Attention Ability to Follow Commands Able to Follow One Step Commands Memory Description Short Term Impaired,Working Impaired Problem Solving Ability Unable to Identify Errors, Needs Assist to Identify Solutions Cognitive Tests SLUMS 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 Pt not able to calculate 100- 23, able to recall 3/5 objects after time passed, not able to draw the hour hands correctly after time given and able to answer 3/4 questions right after paragraph read. Pt states is a very visual learner. Cognitive Comments Cognitive Assessment Comments Pt easily distracted and needing cues to stay focused and concentrate. Pt is very tangential when talking. Pt states when she is stressed has more difficulty with her words. Not sure if this if pt 's baseline cognitive function or new. Continue to assess pt for cognitive needs. OT- Vision and Hearing OT- Hearing Assessment OT- Hearing Assessment WFL OT- Vision Assessment Visual Acuity Glasses All The Time Visual Attentiveness WFL Occular Pursuits WFL Visual Convergence WFL Visual Gonzalez WFL M7 OT- IP Mobility and Balance Start: 07/21/22 10:18 Freq: Status: Active Protocol: Document 07/21/22 08:30 [facility] (Rec: 07/21/22 10:43 [facility] [id number]) OT-Transfer Assessment Comments Mobility Comments Pt too nauseous to get up at this time. OT- Balance Assessment Comments Other Balance Tests/Deviations/Treatment Unable to get pt up due to : nausea. M8 OT- IP Objective Assessments Start: 07/21/22 10:18 Freq: Status: Active Protocol: Document 07/21/22 08:30 [facility] (Rec: 07/21/22 10:43 [facility] [id number]) OT Gross Range of Motion Upper Extremity Range of Motion Assessment Within Functional Limits OT Strength Comments Strength Comments BUE 4/5 grossly OT- Coordination Assessment Upper Extremity Finger to Nose Test Within Functional Limits OT-Muscle Tone Assessment Muscle Tone WNL Yes M9 OT- IP Assessment and Plan Start: 07/21/22 10:18 Freq: Status: Active Protocol: Document 07/21/22 08:30 [facility] (Rec: 07/21/22 10:43 [facility] [id number]) OT Summary Assessment and Plan Potential Rehabilitation Potential Good Analytic Complexity at Evaluation Moderate Summary OT Impairments Strength,Balance,Functional Cognition,Functional Mobility, Grooming,Dressing,Toileting, Bathing,Toilet Transfers, Shower Transfers,Activity Tolerance Progress Towards Goals Slow Progress due to Medical Issues,Slow Progress due to Activity Tolerance,Slow Progress due to Cognition Assessment Summary Pt MOD complexity and main barrier are nausea, decreased functional cognition however unclear if this is her baseline needs and to continue to assess, and per pt eval pt having decreased balance. Not able to get pt up due to nausea. Pt is agreement best at this time to go to skilled rehab to get stronger so able to return home to be able to care for herself. Goals Self-Feeding Goal Independent Grooming Goal Independent Dressing Goal Independent Toileting Goal Independent Bathing Goal Independent Toilet Transfer Goal Independent Shower Transfer Goal Independent Days to Meet Goals 10 Frequency of Treatment Frequency Of Treatment Once a Day Treatment Plan OT Treatment Plan ADL Training,Functional Cognition Training,Functional Mobility,Patient/Family Education,Discharge Planning Discharge Recommendations OT Discharge Recommendations SNF Rehab Transportation Needs at Discharge Wheelchair/Cabulance
--- NOTE | 2022-07-21 09:35 | CM.DPC ---
Addendum entered by Sara Guallpa R.N. 07/21/22 10:22: Patient is actually eligible for SNF level rehab by Sunday. [facility] accepted for Sunday with estimated pickup time of 1100. Original Note: DCP continued: Met with patient to discuss her discharge plan. Discussed SNF level rehab. Patient is willing to go as long as she can remain in [place]. [facility] patient. Patients insurance will cover for 20 days. Patient is aware that she cannot smoke at facility. Patient will be eligible for SNF level rehab by Sunday. P: Will F/U with [facility] today to ensure she can accept patient for DCP tomorrow. PASRR completed. Sara Guallpa RN CM
[2022-07-21 11:00] VITALS: BP 116/73; PULSE 73; RESP 17; TEMP 36.3; O2SAT 96
--- NOTE | 2022-07-21 11:17 | P.PN_ITS ---
Subjective Subjective Interval history: 72 F admitted with severe hypothyroidism, she still seems a bit confused today but is improving, though with continued lethargy. Her baseline is not entirely clear. Am cortisol quite high but was given hydrocortisone IV for presumed myxedema coma. Patient nauseous this morning as well, suspect related to steroids so stress dosing was stopped. SLUMS was 22. Exam Vital Signs (past 8 hours): - 07/21/22 04:00 07/21/22 07:00 Temperature 97.2 F L 97.1 F L Pulse Rate 68 61 Respiratory Rate 18 17 Blood Pressure 114/56 L 98/65 Pulse Oximetry 95 96 Oxygen Flow Rate 0 0 Oxygen Delivery Method Nasal Cannula Oxygen Flow Rate 0 Narrative Exam Narrative: She is alert and oriented x3, relatively calm.? Seems slightly confused, slow responses. ? Head is atraumatic.? Eyes are notable for symmetric pupils and anicteric sclera. She reports swollen face consistent with myxedema. ? Neck is supple with normal range of motion, normal thyroid.? No adenopathy. ? Lungs are clear to auscultation with normal rate and effort. ? Heart is regular in rate and rhythm, with out murmur. ? Abdomen is soft, non-distended.? No focal tenderness, guarding or rebound. ? Extremities are free of edema with good pedal pulses. ? Skin is free of rash, or lesions. ? Muscles with normal tone, joints are negative for deformity. ? Neurologically patient has normal cranial nerves and normal motor strength in all extremities. Objective Labs 07/21/22 06:02 07/21/22 06:02 Labs: Laboratory Results - last 24 hr 07/21/22 07/21/22 07/21/22 06:02 06:02 06:02 WBC 9.4 RBC 4.19 Hgb 13.9 Hct 40.6 MCV 97.0 MCH 33.3 MCHC 34.3 RDW 15.4 H Plt Count 192 Neut % (Auto) 83.2 H D Lymph % (Auto) 14.0 L D [place] % (Auto) 1.7 L Eos % (Auto) 0.1 L Baso % (Auto) 1.0 Neut # (Auto) 7800 H Lymph # (Auto) 1300 [place] # (Auto) 200 Eos # (Auto) 0 Baso # (Auto) 100 Sodium 138 Potassium 3.6 Chloride 104 Carbon Dioxide 28 BUN 15 Creatinine 0.98 Estimated GFR > 60 BUN/Creatinine Ratio 15.3 Glucose 131 H Calcium 9.8 Magnesium 2.4 H Cortisol AM Sample 07/21/22 06:02 WBC RBC Hgb Hct MCV MCH MCHC RDW Plt Count Neut % (Auto) Lymph % (Auto) [place] % (Auto) Eos % (Auto) Baso % (Auto) Neut # (Auto) Lymph # (Auto) [place] # (Auto) Eos # (Auto) Baso # (Auto) Sodium Potassium Chloride Carbon Dioxide BUN Creatinine Estimated GFR BUN/Creatinine Ratio Glucose Calcium Magnesium Cortisol AM Sample 235 H [facility] Medical History Opioid use Social History household members: none Smoking Status: Current every day smoker alcohol intake: never Assessment & Plan Assessment and plan (1) Hypothyroidism: Status: Acute Assessment & Plan narrative: 1. Severe hypothyroidism, with acute metabolic encephalopathy and concern for myxedema coma. - patient presents with myxedema of her face, TSH 147, undetectable free t4 and likely acute metabolic encephalopathy. She was borderline hypothermic and mildly bradycardic with mild hypotension as well. Presented with rate controlled atrial flutter. Baseline mentation unable to be determined at this time, but patient lives alone in a duplex. - she reports improvement in symptoms with initial dose of 400 mcg of levothyroxine for 2 days. Recheck TSH on 07/22 AM. Okay to decrease dose to 150 mcg of levothyroxine tomorrow, repeat TSH and hormone levels tomorow to make sure levels are improving with therapy. - borderline random cortisol yesterday evening, gave steroids today for concern for myxedema coma, but stopped quickly when she developed nausea and markedly elevated AM cortisol. - consider endocrinology consultation depending on response to therapies. - possible underlying mild cognitive impairment with SLUMS , however would recommend repeat evaluation after initiation of thyroid hormone replacement. 2. Atrial Flutter on telemetry, present on admission and active - suspect in setting of hypothyroid. Will continue telemetry and is currently in sinus rhythm. - will avoid initation of anticoagulation at this time given related to thyroid disorder, and fall risk. Recommend repeat discussion with PCP in the coming months if flutter returns. 3. Nicotine dependence, present on admission and active. Nicoderm patch 14 mg daily. 4. Hypertension, present on admission and active. Will monitor blood pressure, have held her home medications thus far given low normal BP since admission in the setting of myxedema coma. She is full resuscitation. Dispo: inpatient, may need SNF in 2-3 days depending on improvement with steroids and thyroid hormone. Time Spent With Patient Time with patient: 30 to 49 minutes with 50% spent counseling/coordinating care
[2022-07-21] MEDS: MORPHINE ER 15 MG TABLET PO ×2 (13:17→21:21)
[2022-07-21] MEDS: clonazePAM 0.5 MG TABLET 1 MG PO ×2 (13:18→21:22)
[2022-07-21] MEDS: HYDROCODONE/ACET 5/325 TABLET 1 TAB PO ×2 (13:18→21:21)
--- NOTE | 2022-07-21 14:11 | PT.IPTN ---
Current Diagnoses Hypothyroidism, unspecified (07/20/22) Physical Therapy Treatment Note M2 PT-IP Current Condition Start: 07/20/22 12:55 Freq: NEEDED Status: Active Protocol: Document 07/20/22 10:49 AB (Rec: 07/20/22 13:15 AB [id number]) Physical Therapy Current Condition Current Condition Evaluation Date 07/20/22 Treatment Diagnosis hypothyroidism; difficulty in walking Onset Date 07/19/22 M3 PT-IP Subjective Start: 07/20/22 12:55 Freq: NEEDED Status: Active Protocol: Document 07/21/22 13:58 ES (Rec: 07/21/22 14:11 ES [id number]) Subjective Physical Therapy Visit Type Type Treatment Note Visit Start Time 13:09 Visit Stop Time 13:42 Total Visit Minutes 33 Number of ABRASIVE MIXER HELPER Visits 0 Physical Therapy Visit Comments Patient Comments Patient alert in bed, agreeable to get up and walk with PT. Reported 9/10 pain at rest to RN who then gave pain meds. M4 PT-IP Mobility and Gait Start: 07/20/22 12:55 Freq: NEEDED Status: Active Protocol: Document 07/21/22 13:58 ES (Rec: 07/21/22 14:11 ES [id number]) PT-Bed Mobility Assessment Supine to Sit Supine to Sit Standby Assistance,Head of Bed Elevated Sit to Supine Sit to Supine Minimal Assistance,Head of Bed Elevated Scooting Scooting to Edge of Bed Standby Assistance Scooting Up and Down in Bed Minimal Assistance PT-Transfer Assessment Sit to and From Stand Sit to and from Stand Standby Assistance,Use of Upper Extremities Equipment Transfer Assistive Device Gait Belt,4 Wheeled Walker Comments Mobility Comments One LOB while turning at EOB without UE support when reaching for glasses, resulting in patient suddenly sitting onto bed without incident. Gait Assessment Gait Gait Assistance Required: Contact Guard Assist Distance (Feet) 400 Assistive Devices Assistive Device Gait Belt,4 Wheeled Walker Gait Deviations General Gait Pattern Decreased Stride Length, Decreased Feet Clearance Factors Limiting Gait Function Factors Limiting Gait Function Decreased Strength,Poor Balance Comments Gait Comments Ambulated with decreased speed and roland. Occasionally would let go of 4WW with one hand while talking; cued to keep both hands on 4WW when moving for safety. PT-Balance Assessment Sitting Balance and Reactions Static Sitting Balance Ability Normal Dynamic Sitting Balance Ability Good Standing Balance and Reactions Static Standing Balance Ability Fair Dynamic Standing Balance Ability Fair Device Used 4WW Comments Other Balance Tests/Deviations/Treatment Stood for 5 minutes at sink : with SERA support for some grooming without LOB. One LOB with turning without UE support at EOB. M5 PT-IP Objective Assessments Start: 07/20/22 12:55 Freq: NEEDED Status: Active Protocol: Document 07/21/22 13:58 ES (Rec: 07/21/22 14:11 ES [id number]) Orientation Orientation/Cognition Level of Alertness Alert Safety Awareness Decreased Safety Awareness Comments Constantly talking throughout visit, easily distracted. M6 PT-IP Treatment Start: 07/20/22 12:55 Freq: NEEDED Status: Active Protocol: Document 07/21/22 13:58 ES (Rec: 07/21/22 14:11 ES [id number]) Physical Therapy Treatment Education Education Provided Safety M7 PT-IP Assessment and Plan Start: 07/20/22 12:55 Freq: NEEDED Status: Active Protocol: Document 07/21/22 13:58 ES (Rec: 07/21/22 14:11 ES [id number]) PT Summary Assessment and Plan Summary Impairments Pain,ROM,Strength,Balance, Coordination,Sensation,Tone, Cognition,Bed Mobility, Transfers,Gait,Activity Tolerance Progress Towards Goals Progressing Toward Goals Assessment Summary Patient able to progress ambulation this visit to 400ft with 4WW and CGA. She demonstrates decreased safety awareness, and she needed redirection throughout visit due to being easily distracted . She requires 24/7 supervision and is at increased risk for falls. Goals Bed Mobility Goal Independent Transfer Goal Independent,Four Wheeled Walker Gait Goal Independent,Four Wheel Walker Gait Distance 150 Other Goals up/down 1 step using 4WW/SPC SBA improve transfers and ambulation using SPC 250 ft SBA Days to Meet Goals 10 Frequency of Treatment Frequency Of Treatment Once a Day Treatment Plan Physical Therapy Treatment Plan Bed Mobility Training,Transfer Training,Gait Training, Therapeutic Exercise,Balance Retraining,Discharge Planning, Hot or Cold Pack,Neuromuscular Re-ed,Coordination Retraining ,Manual Therapy Other Recommendations and Next Treatment Progress standing balance, Focus strength. Precautions Other Precautions falls Recommendations To Nursing Amount of Assist Needed 1 Person Assist Discharge Recommendations PT Discharge Recommendations Home vs SNF Other Discharge Recommendations Would currently need 24/7 supervision/assistance at home . Transportation Needs at Discharge Private Vehicle
[2022-07-21 17:00] VITALS: BP 136/63; PULSE 59; RESP 17; TEMP 36.4; O2SAT 94
[2022-07-21 20:00] VITALS: BP 106/84; PULSE 62; RESP 19; TEMP 36.4; O2SAT 96
[2022-07-21] MEDS: DOCUSATE 100 MG CAPSULE PO (21:20)
[2022-07-22] VITALS: BP 111/61; PULSE 64; RESP 17; TEMP 36.1; O2SAT 94
[2022-07-22 04:38] LABS: Add Manual Diff / Slide Review NO; Basophils Absolute Auto 100 /uL (0-100); Basophils Percent Auto 0.9 % (0-2); Eosinophils Absolute Auto 0 /uL (0-450); Eosinophils Percent Auto 0.5 % (2-4); Hematocrit 37.8 % (36-46); Hemoglobin 12.8 g/dL (12.0-16.0); Lymphocytes Absolute Auto 3900 /uL (1100-4500); Lymphocytes Percent Auto 40.1 % (25-40); Mean Corpuscular HGB Conc 33.9 % (30-36); Mean Corpuscular Hemoglobin 32.7 PG (26-34); Mean Corpuscular Volume 96.5 fL (80-100); Monocytes Absolute Auto 600 /uL (0-900); Monocytes Percent Auto 6.5 % (3-14); Neutrophils Absolute Auto 5100 /uL (1500-7000); Platelet Count 180 X10^3/uL (150-400); Red Blood Cell Count 3.91 X10^6/uL (4.0-5.2); Red Cell Distribution Width 15.6 % (11.6-14.8); White Blood Cell Count 9.8 X10^3/uL (4.5-11.0)
[2022-07-22 04:47] LABS: Magnesium 2.4 mg/dL (1.6-2.3)
[2022-07-22] MEDS: HYDROCODONE/ACET 5/325 TABLET 1 TAB PO ×3 (05:31→21:36)
[2022-07-22] MEDS: MORPHINE ER 15 MG TABLET PO ×3 (05:31→21:39)
[2022-07-22] MEDS: LEVOTHYROXINE 100 MCG TABLET 150 MCG PO (05:32)
[2022-07-22] MEDS: DOCUSATE 100 MG CAPSULE PO ×2 (08:45→21:35)
[2022-07-22] MEDS: NICOTINE 21 MG PATCH TOP (08:45)
[2022-07-22] MEDS: HEPARIN 5,000 UNIT/ML VIAL 5000 UNIT SUBCUT ×2 (08:45→21:34)
[2022-07-22] MEDS: clonazePAM 0.5 MG TABLET 1 MG PO ×3 (09:51→21:35)
--- NOTE | 2022-07-22 10:54 | PT.IPTN ---
Current Diagnoses Hypothyroidism, unspecified (07/20/22) Physical Therapy Treatment Note M2 PT-IP Current Condition Start: 07/20/22 12:55 Freq: NEEDED Status: Active Protocol: Document 07/20/22 10:49 AB (Rec: 07/20/22 13:15 AB [email or web address]) Physical Therapy Current Condition Current Condition Evaluation Date 07/20/22 Treatment Diagnosis hypothyroidism; difficulty in walking Onset Date 07/19/22 M3 PT-IP Subjective Start: 07/20/22 12:55 Freq: NEEDED Status: Active Protocol: Document 07/22/22 10:54 AB (Rec: 07/22/22 12:23 AB [email or web address]) Subjective Physical Therapy Visit Type Type Treatment Note Visit Start Time 11:54 Visit Stop Time 11:20 Total Visit Minutes 26 Number of HOME MORTGAGE DISCLOSURE ACT SPECIALIST Visits 0 Physical Therapy Visit Comments Patient Comments agreeable to do PT M4 PT-IP Mobility and Gait Start: 07/20/22 12:55 Freq: NEEDED Status: Active Protocol: Document 07/22/22 10:54 AB (Rec: 07/22/22 12:23 AB [email or web address]) PT-Bed Mobility Assessment Supine to Sit Supine to Sit Standby Assistance,Head of Bed Elevated,Bedrails PT-Transfer Assessment Sit to and From Stand Sit to and from Stand Standby Assistance,1 Person Assistance,Use of Upper Extremities Equipment Transfer Assistive Device Gait Belt,4 Wheeled Walker Orthotic/Prosthetic Devices or Brace: No Comments Mobility Comments pt agreeable to do PT. completed supine to sit SBA with HOB elevated. educated pt again on use of 4WW for safety and use of brakes. pt completed sit to stand SBA, able to manage brakes but with cues provided. pt ambulated in the hallway ~ 400 ft using 4WW SBA. presents with slow paced gait with decrease LE elevation but without LOB. continues to require occasional cues for safety as pt's continues to have decrease safety awareness and increase reaction time needed with activities. Gait Assessment Gait Gait Assistance Required: Standby Assistance Distance (Feet) 400 Able to Maintain Weight Bearing Status Yes During Gait Assistive Devices Assistive Device Gait Belt,4 Wheeled Walker Orthotic/Prosthetic Devices or Brace: No Gait Deviations General Gait Pattern Decreased Stride Length, Decreased Feet Clearance Factors Limiting Gait Function Factors Limiting Gait Function Decreased Activity Tolerance, Decreased Strength,Poor Balance,Poor Safety Awareness M5 PT-IP Objective Assessments Start: 07/20/22 12:55 Freq: NEEDED Status: Active Protocol: Document 07/21/22 13:58 ES (Rec: 07/21/22 14:11 ES [id number]) Orientation Orientation/Cognition Level of Alertness Alert Safety Awareness Decreased Safety Awareness Comments Constantly talking throughout visit, easily distracted. M6 PT-IP Treatment Start: 07/20/22 12:55 Freq: NEEDED Status: Active Protocol: Document 07/22/22 10:54 AB (Rec: 07/22/22 12:23 AB [id number]) Physical Therapy Treatment Education Education Provided Safety M7 PT-IP Assessment and Plan Start: 07/20/22 12:55 Freq: NEEDED Status: Active Protocol: Document 07/22/22 10:54 AB (Rec: 07/22/22 12:23 AB [id number]) PT Summary Assessment and Plan Potential Rehabilitation Potential Good Summary Impairments Pain,ROM,Strength,Balance, Coordination,Sensation, Cognition,Bed Mobility, Transfers,Gait,Activity Tolerance Progress Towards Goals Slow Progress due to Activity Tolerance,Slow Progress - Other Assessment Summary pt improving with mobility requiring SBA with ambulation using 4WW but continues to require cues for safety. pt lives alone and needs to be more independent than currenty level and will benefit from SNF rehab. Goals Bed Mobility Goal Independent Transfer Goal Independent,Four Wheeled Walker Gait Goal Independent,Four Wheel Walker Gait Distance 150 Other Goals up/down 1 step using 4WW/SPC SBA improve transfers and ambulation using SPC 250 ft SBA Days to Meet Goals 10 Frequency of Treatment Frequency Of Treatment Once a Day Treatment Plan Physical Therapy Treatment Plan Bed Mobility Training,Transfer Training,Gait Training, Therapeutic Exercise,Balance Retraining,Discharge Planning, Hot or Cold Pack,Neuromuscular Re-ed,Coordination Retraining ,Manual Therapy Precautions Other Precautions falls Recommendations To Nursing Amount of Assist Needed 1 Person Assist Discharge Recommendations PT Discharge Recommendations SNF Rehab Transportation Needs at Discharge Private Vehicle,Wheelchair/ Cabulance
[2022-07-22 11:32] VITALS: BP 115/68; PULSE 70; RESP 18; TEMP 36.8; O2SAT 96
--- NOTE | 2022-07-22 13:10 | P.PN_ITS ---
Subjective Subjective Interval history: Patient feeling generally better than when she presented and is very thankful for the treatment that is allowed her to be better. Exam Vital Signs (past 8 hours): - 07/22/22 08:32 07/22/22 08:57 Temperature 98.2 F Pulse Rate 70 Respiratory Rate 18 Blood Pressure 115/68 Pulse Oximetry 96 Oxygen Delivery Method Room Air Oxygen Flow Rate 0 Oxygen Delivery Method Room Air Oxygen Flow Rate 0 Narrative Exam Narrative: ? She is alert and oriented x3 ?? Head is atraumatic.? Eyes are notable for symmetric pupils and anicteric sclera. She reports swollen face consistent with myxedema. ?? Neck is supple with normal range of motion, normal thyroid.? No adenopathy. ?? Lungs are clear to auscultation with normal rate and effort. ?? Heart is regular in rate and rhythm, with out murmur. ?? Abdomen is soft, non-distended.? No focal tenderness, guarding or rebound. ?? Extremities are free of edema with good pedal pulses. ?? Skin is free of rash, or lesions. ?? Muscles with normal tone, joints are negative for deformity. ?? Neurologically patient has normal cranial nerves and normal motor strength in all extremities. Objective Labs 07/22/22 04:29 07/21/22 06:02 Labs: Laboratory Results - last 24 hr 07/22/22 07/22/22 04:29 04:29 WBC 9.8 RBC 3.91 L Hgb 12.8 Hct 37.8 MCV 96.5 MCH 32.7 MCHC 33.9 RDW 15.6 H Plt Count 180 Neut % (Auto) 52.0 D Lymph % (Auto) 40.1 H D [place] % (Auto) 6.5 Eos % (Auto) 0.5 L Baso % (Auto) 0.9 Neut # (Auto) 5100 Lymph # (Auto) 3900 [place] # (Auto) 600 Eos # (Auto) 0 Baso # (Auto) 100 Magnesium 2.4 H [facility] Medical History Opioid use Social History household members: none Smoking Status: Current every day smoker alcohol intake: never Assessment & Plan Assessment & Plan narrative: 1. Severe hypothyroidism, with acute metabolic encephalopathy and concern for myxedema coma. ?- patient presented with myxedema of her face, TSH 147, undetectable free t4 and likely acute metabolic encephalopathy. She was borderline hypothermic and mildly bradycardic with mild hypotension as well. Presented with rate controlled atrial flutter. ?- she reported improvement in symptoms with initial dose of 400 mcg of levothyroxine for 2 days. Recheck TSH on 07/22 AM. Decreased dose to 150 mcg of levothyroxine, repeat TSH and hormone levels tomorow to make sure levels are improving with therapy. - borderline random cortisol, given steroids for concern for myxedema coma, but stopped quickly when she developed nausea and markedly elevated AM cortisol. - consider endocrinology consultation depending on response to therapies. - possible underlying mild cognitive impairment with SLUMS , however would recommend repeat evaluation after initiation of thyroid hormone replacement and treatment for some time. 2. Atrial Flutter on telemetry, present on admission and active ?- suspect in setting of hypothyroid. Will continue telemetry and is currently in sinus rhythm. ?- will avoid initation of anticoagulation at this time given related to thyroid disorder, and fall risk. Recommend repeat discussion with PCP in the coming months if flutter returns. 3. Nicotine dependence, present on admission and active.? Nicoderm patch 14 mg daily. 4. Hypertension, present on admission and active for 1 of her diagnoses.? Will monitor blood pressure, her home medications have been held thus far given low normal BP since admission in the setting of myxedema coma. 5. Significant anxiety. Patient is on clonidine as needed. This was changed to clonidine 1 mg t.i.d. and 1 mg as needed daily. Hydroxyzine added at 50 mg t.i.d. to help with anxiety. Patient very anxious about going to [facility]. She was under the impression that she could go home for a day prior to going [facility] and this has made her very anxious. Knowing that she will be going directly to [facility]. She is full resuscitation. Prophylaxis for DVT: Heparin 5000 units subQ b.i.d. Surrogate decision maker: When asked about a surrogate decision maker. Patient indicated ?I am not going there ?and therefore I was unable to get any information in regards to that. Follow clinically and labs tomorrow. Dispo: inpatient, needs SNF expected discharge tomorrow.
[2022-07-22] MEDS: hydrOXYzine pamoate 25 MG CAPSULE 50 MG PO ×2 (15:35→21:35)
--- NOTE | 2022-07-22 15:56 | CM.DPC ---
DCP Continued: EFFICIENCY MANAGER reviewed EMR. From July at [facility], they are still good to accept patient tomorrow around 1100. EFFICIENCY MANAGER entered room and introduced self. Patient was laying in bed and tearful throughout the interaction. Patient appeared A/Ox4 and was tangential. It is unclear if tangential nature of patient is baseline communication style or indicative of additional medical concerns. Patient was tearful regarding not being able to go home in between d/c from this hospital and and had a lengthy conversation with this author regarding her concerns. Patient reports she wants to get some of her stuff and smell the fresh air. When asked if she had anyone that could bring her stuff for her, she reported there was no one she trusted with her belongings. EFFICIENCY MANAGER reported that in order to go to she must d/c from here, however, if she wanted to go home she could do so against medical advise. Patient reports still wanting to go to at this time. Plan: patient will d/c to [facility] tomorrow, 07.23.22, around 1100 if medically stable. CM team will continue to follow closely. PHOEBE Benson
[2022-07-22] MEDS: ONDANSETRON 4 MG/2 ML INJ IV (21:03)
[2022-07-22 21:35] VITALS: BP 120/45; RESP 62; TEMP 35.8; O2SAT 94
[2022-07-23 04:56] VITALS: BP 113/52; PULSE 57; RESP 17; TEMP 35.8; O2SAT 94
[2022-07-23 05:38] LABS: Add Manual Diff / Slide Review NO; Basophils Absolute Auto 0 /uL (0-100); Basophils Percent Auto 0.6 % (0-2); Eosinophils Absolute Auto 200 /uL (0-450); Eosinophils Percent Auto 2.6 % (2-4); Hematocrit 37.7 % (36-46); Hemoglobin 12.8 g/dL (12.0-16.0); Lymphocytes Absolute Auto 2800 /uL (1100-4500); Lymphocytes Percent Auto 40.1 % (25-40); Mean Corpuscular Hemoglobin 33.3 PG (26-34); Mean Corpuscular Volume 97.8 fL (80-100); Monocytes Absolute Auto 600 /uL (0-900); Monocytes Percent Auto 8.7 % (3-14); Neutrophils Absolute Auto 3400 /uL (1500-7000); Platelet Count 183 X10^3/uL (150-400); Red Blood Cell Count 3.86 X10^6/uL (4.0-5.2); Red Cell Distribution Width 15.7 % (11.6-14.8); White Blood Cell Count 7.1 X10^3/uL (4.5-11.0)
[2022-07-23] MEDS: MORPHINE ER 15 MG TABLET PO (05:41)
[2022-07-23 05:46] LABS: Magnesium 2.5 mg/dL (1.6-2.3)
[2022-07-23] MEDS: LEVOTHYROXINE 100 MCG TABLET 150 MCG PO (05:46)
[2022-07-23] MEDS: ACETAMINOPHEN 325 MG TABLET 650 MG PO (08:18)
[2022-07-23] MEDS: hydrOXYzine pamoate 25 MG CAPSULE 50 MG PO (08:18)
[2022-07-23] MEDS: clonazePAM 0.5 MG TABLET 1 MG PO (08:20)
[2022-07-23] MEDS: DOCUSATE 100 MG CAPSULE PO (08:20)
[2022-07-23] MEDS: HEPARIN 5,000 UNIT/ML VIAL 5000 UNIT SUBCUT (08:20)
[2022-07-23] MEDS: NICOTINE 21 MG PATCH TOP (08:21)
--- NOTE | 2022-07-23 08:37 | PM.DS.1 ---
History of Present Illness History of Present Illness Date Patient Seen: 07/23/22 Chief complaint: dr ref/said concerning test results Narrative: Patient somewhat nervous about going to [facility] but is talking through it and feels more calm at this time about the prospect of going to [facility]. No new complaints today. Discharge Providers Provider Date of admission: 07/20/22 13:46 Discharge Date: 07/23/22 Primary care physician: ISIDRA Mai Consults: 07/19/22 21:13 Consult to Discharge Planning Routine Comment: Consult to Physical Therapy Evaluate & Treat Comment: Physician Instructions: Evaluate and Treat 07/20/22 12:59 Consult to Occupational Therapy Evaluate & Treat Comment: Physician Instructions: Evaluate and treat 07/20/22 13:13 Consult to Home Health Routine Comment: Reason For Exam: Home Health RN, P.T, O.T, JUNIOR ART DIRECTOR Discharge provider: Jodie Longoria MD Summary Hospital Course Discharge Diagnosis: Severe hypothyroidism due to medication stopping Acute metabolic encephalopathy 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 Not currently being treated due to normotensive state. Significant anxiety Chronic opioid use and dependency Chronic back pain Peripheral neuropathy Hospital Course: Katherine Vasquez is a 72-year-old female who presented for abnormal labs.? She has a history of hypothyroidism and was taking 88 Synthroid a day until about 8 months ago when she stopped.? She became weaker over the last several months and gained 40 lb.? Her labs were grossly abnormal with a TSH of 147 .? She had also been constipated and has both cold and heat intolerance.? Patient was initiated on oral levothyroxine of 400 mcg b.i.d. for a couple of days and then transitioned to 150 mcg daily. Patient needs further rehabilitation of mobility prior to discharge to home. It has been range at the patient's transitioned to [facility] for further rehabilitation. On the day of discharge patient's magnesium is consistently elevated as has been during the hospital stay at 2.5 however this is not of concern and does not need to be treated. Patient's antihypertensive medication has been held during the hospital stay and not needed to be reinitiated due to stable blood pressure. Status at Discharge Cognitive/behavioral status at discharge: at baseline, oriented Functional status at discharge: uses cane/walker Time Spent with Patient Time spent: Greater than 30 minutes Time spent discussing smoking cessation with patient: more than 10 minutes Exam Vital Signs (past 8 hours): - 07/23/22 04:56 Temperature 96.5 F L Pulse Rate 57 L Respiratory Rate 17 Blood Pressure 113/52 L Pulse Oximetry 94 Oxygen Delivery Method Room Air Oxygen Flow Rate 0 Narrative Exam Narrative: ?She is alert and oriented x3 ?? Head is atraumatic.? Extraocular movements normal. ?? Neck is supple with normal range of motion, normal thyroid.? No adenopathy. ?? Lungs are clear to auscultation with normal rate and effort. ?? Heart is regular in rate and rhythm, with out murmur. ?? Abdomen is soft, non-distended.? No focal tenderness, guarding or rebound. ?? Extremities are free of edema with good pedal pulses. ?? Skin is free of rash, or lesions. ?? Muscles with normal tone, joints are negative for deformity. ?? Neurologically patient has normal cranial nerves and normal motor strength in all extremities. Objective Labs 07/23/22 05:00 07/21/22 06:02 Labs: Laboratory Results - last 24 hr 07/22/22 07/23/22 07/23/22 04:29 05:00 05:00 WBC 7.1 RBC 3.86 L Hgb 12.8 Hct 37.7 MCV 97.8 MCH 33.3 MCHC 34.0 RDW 15.7 H Plt Count 183 Neut % (Auto) 48.0 L Lymph % (Auto) 40.1 H [place] % (Auto) 8.7 Eos % (Auto) 2.6 Baso % (Auto) 0.6 Neut # (Auto) 3400 Lymph # (Auto) 2800 [place] # (Auto) 600 Eos # (Auto) 200 Baso # (Auto) 0 Magnesium 2.5 H TSH 85.0 H D [facility] Medical History Opioid use Social History household members: none Smoking Status: Current every day smoker alcohol intake: never Discharge Plan Discharge Plan Patient Disposition: SNF Transfer to: [facility] Discharge orders & Medications Prescriptions: New hydrocodone-acetaminophen 5-325 mg Tablet 1 tab PO Q4HR PRN (Reason: Pain, Moderate (4-10) Qty: 10 0RF morphine 15 mg Tablet Extended Release 15 mg PO Q8HR Qty: 60 0RF clonazepam 0.5 mg Tablet 1 mg PO TID Qty: 90 0RF acetaminophen 325 mg Tablet 650 mg PO Q6H PRN (Reason: Fever/Mild Pain (1-3)) Qty: 30 0RF levothyroxine [Synthroid] 100 mcg Tablet 150 mcg PO DAILY@0600 Qty: 30 0RF ergocalciferol (vitamin D2) [Drisdol] 1,250 mcg (50,000 unit) capsule 1,250 mcg PO QWEEK Qty: 7 0RF docusate sodium 100 mg Capsule 100 mg PO BID Qty: 60 0RF nicotine 21 mg/24 hr Patch 24 Hour 21 mg topical DAILY Qty: 28 0RF Continued clonazepam 1 mg Tablet 1 mg PO TID Qty: 90 0RF ergocalciferol (vitamin D2) [Vitamin D2] 50,000 unit Capsule 1 cap PO QWEEK Qty: 5 0RF Discontinued lisinopril 10 MG tablet 10 mg PO QDAY Qty: 0 hydrochlorothiazide 25 MG tablet 25 mg PO QDAY Qty: 0 hydrocodone-acetaminophen [[place]] 5-325 mg Tablet 1 tab PO BID levothyroxine 100 mcg Tablet 100 mcg PO DAILY cyanocobalamin (vitamin B-12) [Vitamin B-12] 1,000 mcg/mL Solution 1,000 mcg IM QMONTH morphine 15 mg Tablet Extended Release 15 mg PO BID Follow up/Referrals: Korin Quinn ARNP [Primary Care Provider] - Diet/Activity/Treatments Diet: Diet as Tolerated and Regular Visit Report/Discharge Packet Stand Alone Forms: Patient Portal/API Discharge Data Primary Care Provider: Korin Quinn
--- NOTE | 2022-07-23 09:30 | PC.NURSE ---
patient a/o, voices needs. uses call light appropriately. SBA w/ FWW to / from bathroom, has steady gait. moving slowly, shows good safety awareness. reports s/sx of anxiety r/t dc to [facility] today at 11am. provided listening support, patient seems less antsy about the transfer. accepted her thyroid medication this AM. 200mcg given per order. slightly brittanie at 57/min. soft pressure. had her sit EOB for a good minute prior to standing. NURSE LEADER will provide a shower before she leaves. report called to [facility] at 0930, spoke to taye. plan for patient order picker/assembler at 11am.
--- NOTE | 2022-07-23 10:29 | CM.DPC ---
DCP Cont: Patient is supposed to go to [facility] today. Confirmed with July sweet pickle maker at 11:00. White board updated at main nurses station, signed med sheets for hospitalist, she has prescriptions completed. Updated PASSR, secondary to history of anxiety, is on Clonazepam. Faxed over updated PASSR, DC Summary, and med list. Gave nurse, Nicole, number for report. P: Patient is supposed to discharge to [facility] today. Carlota Goodman RN/Color [employer]er [employer]
== END 2022-07-23 11:00 | DRG 643 ==
LOC: ED 20:46 → AC 20:48
PROVIDERS: Internal Medicine; Neuromusculoskeletal Medicine, Sports Medicine; Admitting Provider Hospitalist; Emergency Provider Emergency Medicine; PCP Nurse Practitioner; Referring Provider Emergency Medicine; Visit Provider Hospitalist
DX: E03.9 Hypothyroidism, unspecified (principal); E03.5 Myxedema coma; G93.41 Metabolic encephalopathy; I48.92 Unspecified atrial flutter; F11.20 Opioid dependence, uncomplicated; F17.210 Nicotine dependence, cigarettes, uncomplicated; F41.9 Anxiety disorder, unspecified; G89.29 Other chronic pain; M54.9 Dorsalgia, unspecified; G62.9 Polyneuropathy, unspecified; Z91.148 Patient's other noncompliance with medication regimen for other reason; Z20.822 Contact with and (suspected) exposure to COVID-19
CPT/HCPCS: 36415; 80048; 80053; 80305; 80320; 82140; 82533; 82550; 82962; 83605; 83690; 83735; 84439; 84443; 84481; 84484; 85025; 93005; 93306; 97116; 97162; 97166; 97530; 99285; G0378; J1644; J1720; J2405

== ENCOUNTER → 2022-10-23 13:43 | Outpatient (CLI) | payer MEDICARE, SELFPAY ==
[2022-07-19 21:56] VITALS: BMI 30.2
[2022-10-23 14:56] LABS: TSH w/ Reflex to FT4 < 0.02 uIU/mL (0.47-4.68)
[2022-10-23 15:31] LABS: Free T4, Direct Thyroxine 2.59 ng/dL (0.78-2.19)
== END ==
PROVIDERS: PCP Nurse Practitioner; Referring Provider Nurse Practitioner; Visit Provider Nurse Practitioner
DX: E03.9 Hypothyroidism, unspecified (principal)
CPT/HCPCS: 36415; 84439; 84443

== ENCOUNTER → 2023-01-11 09:56 | Outpatient (CLI) | payer MEDICARE, SELFPAY ==
[2022-07-19 21:56] VITALS: BMI 30.2
[2023-01-11 11:53] LABS: BUN Creatinine Ratio 20.2 (6-22); Blood Urea Nitrogen 17 mg/dL (7-17); Calcium 10.6 mg/dL (8.4-10.2); Carbon Dioxide 33 mmol/L (22-32); Chloride 97 mmol/L (98-107); Estimated Glomerular Filt Rate > 60 mL/min (>60); Glucose 91 mg/dL (80-110); HEMOLYSIS < 15 (0-50); Potassium 3.9 mmol/L (3.4-5.1); Sodium 136 mmol/L (137-145)
== END ==
PROVIDERS: PCP Nurse Practitioner; Referring Provider Nurse Practitioner; Visit Provider Nurse Practitioner
DX: E03.9 Hypothyroidism, unspecified (principal); I10 Essential (primary) hypertension
CPT/HCPCS: 36415; 80048; 84443

== ENCOUNTER → 2023-03-06 11:09 | Outpatient (CLI) | payer MEDICARE, SELFPAY ==
[2022-07-19 21:56] VITALS: BMI 30.2
[2023-03-06 12:52] LABS: Thyroid Stimulating Hormone < 0.015 uIU/mL (0.47-4.68)
== END ==
LOC: LAB 11:10
PROVIDERS: PCP Nurse Practitioner; Referring Provider Nurse Practitioner; Visit Provider Nurse Practitioner
DX: E03.9 Hypothyroidism, unspecified (principal)
CPT/HCPCS: 36415; 84443

== ENCOUNTER → 2023-06-27 12:53 | Outpatient (CLI) | payer MEDICARE, SELFPAY ==
[2022-07-19 21:56] VITALS: BMI 30.2
[2023-06-27 15:40] LABS: TSH w/ Reflex to FT4 < 0.02 uIU/mL (0.47-4.68)
[2023-06-27 17:28] LABS: Free T4, Direct Thyroxine 1.99 ng/dL (0.78-2.19)
== END ==
PROVIDERS: PCP Nurse Practitioner; Referring Provider Nurse Practitioner; Visit Provider Nurse Practitioner
DX: E03.9 Hypothyroidism, unspecified (principal)
CPT/HCPCS: 36415; 84439; 84443

== ENCOUNTER → 2023-08-27 09:40 | Outpatient (CLI) | payer MEDICARE, SELFPAY ==
[2022-07-19 21:56] VITALS: BMI 30.2
[2023-08-27 11:14] LABS: Thyroid Stimulating Hormone 0.284 uIU/mL (0.47-4.68)
== END ==
LOC: LAB 09:42
PROVIDERS: PCP Nurse Practitioner; Referring Provider Nurse Practitioner; Visit Provider Nurse Practitioner
DX: E03.9 Hypothyroidism, unspecified (principal)
CPT/HCPCS: 36415; 84443

== ENCOUNTER 2023-11-04 16:34 | Inpatient (IN) | payer MEDICARE, SELFPAY ==
[2022-07-19 21:56] VITALS: BMI 30.2
[2023-11-04] VITALS (45 sets, daily range): BP systolic 79–130; BP diastolic 43–78; PULSE 47–124; RESP 9–36; TEMP 36.6; O2SAT 89–99; BMI 25.0; BMI 25.9
--- NOTE | 2023-11-04 16:41 | DI.RAD.S_ITS ---
PROCEDURE: XR CHEST 1V INDICATIONS: chest pain TECHNIQUE: One view of the chest was acquired. COMPARISON: None. FINDINGS: Surgical changes and devices: None. Lungs and pleura: Hazy bibasilar opacities. No pleural effusions or pneumothorax. Mediastinum: Mediastinal contours appear normal. Heart size is normal. Bones and chest wall: No suspicious bony lesions. Overlying soft tissues appear unremarkable. IMPRESSION: Hazy bibasilar of bibasilar opacities, probably atelectasis. Dictated by: Garfield Claudio M.D. on 11/04/2023 at 17:35 Approved by: Garfield Claudio M.D. on 11/04/2023 at 17:36
--- NOTE | 2023-11-04 16:41 | EKG_ITS ---
[id number] [address] Test Date: 2023-11-04 Pat Name: Katherine Vasquez Department: Room: Gender: Female Workers Compensation Examiner: [place] : 1950 Requested By: Order Number: [id number] Reading MD: Beto Elizalde MD Measurements Intervals [place] Rate: 53 P: 50 NH: 178 QRS: -27 QRSD: 84 T: -3 QT: 470 QTc: 441 Interpretive Statements Sinus bradycardia Septal infarct , age undetermined Electronically Signed On 11-05-2023 7:55:21 PDT by Beto Elizalde MD
--- NOTE | 2023-11-04 16:46 | ED_ITS ---
HPI - General Adult General Chief complaint: Syncope Stated complaint: LOC somulent Time Seen by Provider: 11/04/23 16:40 Source: patient, EMS, RN notes reviewed and old records reviewed Mode of arrival: EMS Limitations: no limitations History of Present Illness HPI narrative: 73-year-old history of hypertension, hypothyroidism, chronic pain on morphine and Garrison daily, tobacco use who presents with complaint of near syncope. Patient states she did not feel very well this morning denies any fevers or chills no cold cough or congestion symptoms. No headache, denies any chest pain or shortness of breath, no abdominal back or flank pain. No urinary symptoms. No new swelling of extremities. No diaphoresis. Patient states she felt like she did have a bowel movement so she got up to go to the bathroom and felt very lightheaded like she might pass out. According to EMS no actual loss of consciousness but was very close. Was hypotensive in the field, glucose was appropriate. Patient did receive 1 dose of push dose nor epi in the field as well as about 200 mL of normal saline. Patient feels much improved after this. Mentation is improved as well. Patient states no new changes to medication she is on morphine and Garrison daily but states she takes these regularly and follows a pain management contract. She does take medication for blood pressure takes her blood pressure medications at 6:00 a.m., takes her pain medications at 6:00 a.m., 2:00 p.m. and 10:00 p.m.. She states she has had a prior hysterectomy prior back surgery but no cardiac interventions or other major surgeries. Reports allergy to gabapentin. Patient does use tobacco daily, denies any recreational drugs, no regular alcohol. Primary care provider is Korin Quinn. She follows with pain management. Related Data Home Medications Medication Instructions Recorded Confirmed hydrocodone 5 mg-acetaminophen 325 1 tab PO Q4-6H PRN Pain (Scale 11/04/23 11/04/23 mg tablet Score 4-6) Previous Rx's Medication Instructions Recorded acetaminophen 325 mg tablet 650 mg (2 x 325 mg) PO Q6H PRN 07/23/22 Fever/Mild Pain (1-3) #30 tabs clonazepam 0.5 mg tablet 1 mg (2 x 0.5 mg) PO TID #90 tabs 07/23/22 clonazepam 1 mg tablet 1 mg PO TID #90 tabs 07/23/22 hydrocodone 5 mg-acetaminophen 325 1 tab PO Q4HR PRN Pain, Moderate 07/23/22 mg tablet (4-10 #10 tabs levothyroxine 100 mcg tablet 150 mcg (1.5 x 100 mcg) PO 07/23/22 (Synthroid) DAILY@0600 #30 tabs morphine 15 mg tablet,extended 15 mg PO Q8HR #60 tabs 07/23/22 release nicotine 21 mg/24 hr daily 21 mg topical DAILY #28 ea 07/23/22 transdermal patch apixaban 5 mg tablet (Eliquis) See Rx Instructions .Route 11/07/23 .COMPLEX 90 days #194 tabs Allergies Allergy/AdvReac Type Severity Reaction Status Date / Time gabapentin [From Neurontin] Allergy Unknown Verified 08/08/18 13:15 Review of Systems Review of Systems ROS Unobtainable: All systems reviewed & are unremarkable except as noted in HPI and below Patient History Medical History Opioid use Social History household members: none Smoking Status: Current every day smoker alcohol intake: never Smoking Status: Current every day smoker alcohol intake frequency: 0-2 drinks per day Substance Use Type: does not use Exam Narrative Exam Narrative: GEN: Thin, elderly appearing female, alert and oriented x 3, patient appears to be in mild distress. No diaphoresis. HEENT: Atraumatic, pupils are equal round reactive to light, extraocular movements are intact, nares are clear, there is no conjunctival pallor. Throat is clear without any exudates, erythema, tonsillar enlargement or uvular deviation HEART: Bradycardic but Regular rate and rhythm without murmur, clicks, rubs. No carotid bruits, pulses are equal in upper and lower extremities, trace pedal edema. LUNGS:Lungs clear to auscultation, no wheezes, rales, crackles, chest moves symmetrically, no tachypnea or accessory muscle use. ABD:bowel sounds normal, soft, non-tender, no guarding, rebound, rigidity, no masses noted, no hepatosplenomegaly :No CVA tenderness MSCL: Non-tender, no muscle atrophy, muscles strength 5/5 upper and lower extremities, full range of motion. NEURO:CN 2-12 intact, sensation normal Initial Vital Signs Initial Vital Signs: Vital Signs Pulse Rate 53 L 11/04/23 16:35 Respiratory Rate 18 11/04/23 16:35 Blood Pressure 108/53 L 11/04/23 16:35 Pulse Oximetry 97 11/04/23 16:35 Oxygen Delivery Method Room Air 11/04/23 16:35 Course Orders Ordered: Discontinued Medications Acetaminophen (Acetaminophen 325 Mg Tablet) 650 mg PO Q6H PRN PRN Reason: Fever/Mild Pain (1-3) Hydrocodone Bitart/Acetaminophen (Hydrocodone/Acet 5/325 Tablet) 1 tab PO Q4H PRN PRN Reason: Pain (Scale Score 4-6) Last Admin: 11/05/23 17:42 Dose: 1 tab Documented By: Admin: 11/05/23 08:15 Dose: 1 tab Documented By: HARJIT Clonazepam (Clonazepam 0.5 Mg Tablet) 1 mg PO TID [facility] Last Admin: 11/06/23 07:44 Dose: 1 mg Documented By: Admin: 11/05/23 20:38 Dose: 1 mg Documented By: Admin: 11/05/23 14:24 Dose: 1 mg Documented By: Admin: 11/05/23 08:13 Dose: 1 mg Documented By: HARJIT Dexamethasone (Dexamethasone 10 Mg/Ml Vial) 6 mg IV DAILY [facility] Last Admin: 11/06/23 07:45 Dose: 6 mg Documented By: Admin: 11/05/23 08:10 Dose: 6 mg Documented By: HARJIT Enoxaparin Sodium (Enoxaparin 40 Mg/0.4 Ml Syringe) 65 mg 1 mg/kg (65 mg) SUBCUT NOW ONE Stop: 11/04/23 18:14 Last Admin: 11/04/23 21:02 Dose: 65 mg Documented By: DEREJE Enoxaparin Sodium (Enoxaparin 100 Mg/Ml Syringe) 65 mg SUBCUT BID [facility] Last Admin: 11/06/23 07:45 Dose: 65 mg Documented By: Admin: 11/05/23 20:38 Dose: 65 mg Documented By: Admin: 11/05/23 08:14 Dose: 65 mg Documented By: Admin: 11/04/23 20:14 Dose: 65 mg Documented By: Admin: 11/04/23 20:11 Dose: 65 mg Documented By: DEREJE Hydromorphone HCl (Hydromorphone 0.5 Mg Inj) 0.5 mg IV Q2H PRN PRN Reason: Pain, Severe (7-10) Sodium Chloride (Normal Saline 0.9%) 1,000 mls @ 1,000 mls/hr IV BOLUS ONE Stop: 11/04/23 17:40 Last Infusion: 11/04/23 18:01 Dose: Infused Documented By: Admin: 11/04/23 16:52 Dose: 1,000 mls/hr Documented By: MARTÍNEZ Sodium Chloride (Normal Saline 0.9%) 1,000 mls @ 200 mls/hr IV CONT [facility] Last Infusion: 11/04/23 19:05 Dose: 0 mls/hr Documented By: Admin: 11/04/23 18:25 Dose: 200 mls/hr Documented By: FRANKLYN Remdesivir 200 mg/ Sodium (Chloride) 250 mls @ 250 mls/hr IV NOW ONE Stop: 11/04/23 19:44 Last Infusion: 11/04/23 22:43 Dose: Infused Documented By: Admin: 11/04/23 21:00 Dose: 250 mls/hr Documented By: DEREJE Remdesivir 100 mg/ Sodium (Chloride) 250 mls @ 250 mls/hr IV DAILY [facility] Stop: 11/08/23 09:59 Last Admin: 11/05/23 13:59 Dose: Not Given Documented By: HARJIT Dextrose/Sodium Chloride (Dextrose 5%-0.45% Ns) 1,000 mls @ 100 mls/hr IV CONT [facility] Last Admin: 11/06/23 03:18 Dose: 100 mls/hr Documented By: Infusion: 11/06/23 03:18 Dose: Infused Documented By: Admin: 11/05/23 17:42 Dose: 100 mls/hr Documented By: Infusion: 11/05/23 17:42 Dose: Infused Documented By: Admin: 11/05/23 08:16 Dose: 100 mls/hr Documented By: Infusion: 11/05/23 08:16 Dose: Infused Documented By: Admin: 11/04/23 23:35 Dose: 100 mls/hr Documented By: DEREJE Dextrose/Sodium Chloride (Dextrose 5%-0.9% Ns) 1,000 mls @ 150 mls/hr IV CONT [facility] Last Admin: 11/04/23 22:58 Dose: Not Given Documented By: DEREJE POTASSIUM CHLORIDE IN WATER (Potassium Cl 10 Meq/100 Ml Mena) 10 meq in 100 mls @ 100 mls/hr IV Q1H [facility] Stop: 11/05/23 00:59 Last Admin: 11/05/23 03:31 Dose: Not Given Documented By: Infusion: 11/05/23 03:31 Dose: Infused Documented By: Admin: 11/05/23 01:49 Dose: 100 mls/hr Documented By: Infusion: 11/05/23 01:25 Dose: Infused Documented By: Admin: 11/05/23 00:25 Dose: 100 mls/hr Documented By: Infusion: 11/04/23 23:42 Dose: Infused Documented By: Admin: 11/04/23 22:42 Dose: 100 mls/hr Documented By: Infusion: 11/04/23 22:22 Dose: Infused Documented By: Admin: 11/04/23 21:22 Dose: 100 mls/hr Documented By: Infusion: 11/04/23 21:11 Dose: Infused Documented By: Admin: 11/04/23 20:11 Dose: 100 mls/hr Documented By: DEREJE POTASSIUM CHLORIDE IN WATER (Potassium Cl 10 Meq/100 Ml Mena) 10 meq in 100 mls @ 100 mls/hr IV Q1H [facility] Stop: 11/05/23 04:14 Last Infusion: 11/05/23 07:44 Dose: Infused Documented By: Admin: 11/05/23 03:30 Dose: 100 mls/hr Documented By: DEREJE Levothyroxine Sodium (Levothyroxine 100 Mcg Tablet) 150 mcg PO DAILY@0600 [facility] Last Admin: 11/06/23 07:42 Dose: 150 mcg Documented By: HARJIT Morphine Sulfate (Morphine Er 15 Mg Tablet) 15 mg PO Q8HR [facility] Last Admin: 11/06/23 07:43 Dose: 15 mg Documented By: Admin: 11/05/23 22:00 Dose: 15 mg Documented By: Admin: 11/05/23 14:24 Dose: 15 mg Documented By: Admin: 11/05/23 08:13 Dose: 15 mg Documented By: HARJIT Naloxone HCl (Naloxone 0.4 Mg/Ml Vial) 0.2 mg IV Q2MIN PRN PRN Reason: Opiate Reversal Nicotine (Nicotine 21 Mg Patch) 21 mg TOP DAILY [facility] Last Admin: 11/06/23 07:45 Dose: 21 mg Documented By: Admin: 11/05/23 08:10 Dose: 21 mg Documented By: HARJIT Pantoprazole Sodium (Pantoprazole 40 Mg Vial) 40 mg IV DAILY [facility] Last Admin: 11/06/23 07:45 Dose: 40 mg Documented By: Admin: 11/05/23 08:11 Dose: 40 mg Documented By: HARJIT Pantoprazole Sodium (Pantoprazole Dr 40 Mg Tablet) 40 mg PO 0600 [facility] Potassium Chloride (Potassium Chloride 20 Meq/15 Ml Udc) 40 meq PO NOW ONE Stop: 11/04/23 17:16 Last Admin: 11/04/23 17:20 Dose: 40 meq Documented By: FRANKLYN Sodium Chloride (Sodium Chloride 0.9% Flush) 10 ml IV PRN PRN PRN Reason: Flush Sodium Chloride (Sodium Chloride 0.9% Flush) 10 ml IV BID [facility] Last Admin: 11/06/23 07:46 Dose: 10 ml Documented By: Admin: 11/05/23 20:38 Dose: 10 ml Documented By: Admin: 11/05/23 08:14 Dose: 10 ml Documented By: HARJIT Vital Signs Vital signs: Vital Signs - 8 hr 11/04/23 16:35 11/04/23 16:35 11/04/23 16:36 Pulse Rate 53 L 60 Respiratory Rate 18 30 H Blood Pressure 108/53 L 108/53 L Pulse Oximetry 97 93 Oxygen Delivery Method Room Air 11/04/23 16:45 11/04/23 16:47 11/04/23 16:47 Pulse Rate 53 L 58 L Respiratory Rate 17 23 Blood Pressure 88/51 L Pulse Oximetry 90 L 89 L Oxygen Delivery Method 11/04/23 16:50 11/04/23 16:50 11/04/23 16:56 Pulse Rate 66 53 L Respiratory Rate 22 22 Blood Pressure 99/78 Pulse Oximetry 92 95 Oxygen Delivery Method 11/04/23 16:56 11/04/23 17:00 11/04/23 17:01 Pulse Rate 56 L Respiratory Rate 21 Blood Pressure 88/52 L 90/48 L Pulse Oximetry 95 Oxygen Delivery Method 11/04/23 17:01 11/04/23 17:05 11/04/23 17:05 Pulse Rate 60 57 L Respiratory Rate 20 28 H Blood Pressure 101/51 L Pulse Oximetry 96 97 Oxygen Delivery Method 11/04/23 17:10 11/04/23 17:10 11/04/23 17:16 Pulse Rate 55 L 65 Respiratory Rate 22 28 H Blood Pressure 91/52 L Pulse Oximetry 97 97 Oxygen Delivery Method 11/04/23 17:16 11/04/23 17:20 11/04/23 17:20 Pulse Rate 53 L Respiratory Rate 19 Blood Pressure 90/45 L 87/46 L Pulse Oximetry 98 Oxygen Delivery Method 11/04/23 17:25 11/04/23 17:25 11/04/23 17:30 Pulse Rate 60 Respiratory Rate 29 H Blood Pressure 87/50 L 88/43 L Pulse Oximetry 99 Oxygen Delivery Method 11/04/23 17:30 11/04/23 17:43 11/04/23 17:43 Pulse Rate 55 L 58 L Respiratory Rate 25 H 9 L Blood Pressure 86/49 L Pulse Oximetry 98 99 Oxygen Delivery Method 11/04/23 17:45 11/04/23 17:45 11/04/23 17:50 Pulse Rate 59 L 58 L Respiratory Rate 17 Blood Pressure 96/50 L Pulse Oximetry 98 97 Oxygen Delivery Method 11/04/23 17:50 11/04/23 17:55 11/04/23 17:55 Pulse Rate 59 L Respiratory Rate Blood Pressure 91/49 L 89/48 L Pulse Oximetry 96 Oxygen Delivery Method 11/04/23 18:00 11/04/23 18:01 11/04/23 18:01 Pulse Rate 59 L 117 H Respiratory Rate Blood Pressure 99/46 L Pulse Oximetry 98 99 Oxygen Delivery Method 11/04/23 18:05 11/04/23 18:05 Pulse Rate 248 H Respiratory Rate Blood Pressure 86/48 L Pulse Oximetry 99 Oxygen Delivery Method Medical Decision Making Lab Data 11/06/23 04:20 11/06/23 04:20 Labs: Lab Results 11/04/23 11/04/23 Range/Units 16:41 16:54 WBC 5.9 (4.5-11.0) X10^3/uL RBC 4.30 (4.0-5.2) X10^6/uL Hgb 13.6 (12.0-16.0) g/dL Hct 40.6 (36-46) % MCV 94.3 (80-100) fL MCH 31.6 (26-34) PG MCHC 33.5 (30-36) % RDW 14.0 (11.6-14.8) % Plt Count 138 L (150-400) X10^3/uL Neut % (Auto) 30.6 L (50-75) % Lymph % (Auto) 49.8 H (25-40) % [place] % (Auto) 17.0 H (3-14) % Eos % (Auto) 1.0 L (2-4) % Baso % (Auto) 1.6 (0-2) % Neut # (Auto) 1800 (3671-2428) /uL Lymph # (Auto) 3000 (1573-3338) /uL [place] # (Auto) 1000 H (0-900) /uL Eos # (Auto) 100 (0-450) /uL Baso # (Auto) 100 (0-100) /uL PT 10.8 (9.4-12.5) SECONDS INR 0.9 (0.9-1.3) APTT 35 (25.1-36.5) SECONDS D-Dimer 1762 H (<500) ng/ml Sodium 137 (137-145) mmol/L Potassium 2.7 L* (3.4-5.1) mmol/L Chloride 104 (98-107) mmol/L Carbon Dioxide 28 (22-32) mmol/L BUN 23 H (7-17) mg/dL Creatinine 1.06 H (0.52-1.04) mg/dL Estimated GFR 55 L (>60) mL/min BUN/Creatinine Ratio 21.7 (6-22) Glucose 138 H (80-110) mg/dL Calcium 9.0 (8.4-10.2) mg/dL Magnesium 1.9 (1.6-2.3) mg/dL Total Bilirubin 0.4 (0.2-1.3) mg/dL AST 28 (14-36) IU/L ALT 15 (<35) IU/L Alkaline Phosphatase 44 (38-126) U/L Total Creatine Kinase 47 (30-135) U/L Troponin I < 0.012 (0.01-0.034) ng/mL NT-Pro-B Natriuret Pep 368 (<450) pg/mL Total Protein 6.1 L (6.3-8.2) g/dL Albumin 3.6 (3.5-5.0) g/dL Globulin 2.5 (1.7-4.1) g/dL Albumin/Globulin Ratio 1.4 (1.0-2.8) Lipase 48 (23-300) U/L TSH 3.68 (0.47-4.68) uIU/mL SARS-CoV-2 (PCR) Positive H (Negative) Influenza A (RT-PCR) Flu a negative (NEGATIVE) Influenza B (RT-PCR) Flu b negative (NEGATIVE) RSV (PCR) Negative (Negative) Imaging Data Chest x-ray: Radiologist's Impression: [address] [address] XRay Report Signed Patient: Katherine Vasquez I MR#: [id number] : 1950 Acct:[id number] Age/Sex: 73 / F Date of Service: 11/04/23 Loc: ED Accession Number: [id number] Procedure: XR chest 1V Ordering Provider: Steph Drew D.O. PROCEDURE: XR CHEST 1V INDICATIONS: chest pain TECHNIQUE: One view of the chest was acquired. COMPARISON: None. FINDINGS: Surgical changes and devices: None. Lungs and pleura: Hazy bibasilar opacities. No pleural effusions or pneumothorax. Mediastinum: Mediastinal contours appear normal. Heart size is normal. Bones and chest wall: No suspicious bony lesions. Overlying soft tissues appear unremarkable. IMPRESSION: Hazy bibasilar of bibasilar opacities, probably atelectasis. Dictated by: Garfield Claudio M.D. on 11/04/2023 at 17:35 Approved by: Garfield Claudio M.D. on 11/04/2023 at 17:36 CT scan - chest: Radiologist's Impression: [address] [address] [address] Scan Report Signed Patient: Katherine Vasquez I MR#: [id number] : 1950 Acct:[id number] Age/Sex: 73 / F Date of Service: 11/04/23 Loc: ED Accession Number: [id number] Procedure: CT angio chest PE protocol Ordering Provider: Steph Drew D.O. PROCEDURE: CT ANGIO CHEST PE PROTOCOL INDICATIONS: near syncope, hypotension, tachy TECHNIQUE: After the administration of intravenous contrast, 2 mm thick sections acquired from the pulmonary apices to the posterior costophrenic angles. 3-dimensional maximum intensity projection (MIP) coronal and sagittal reformats were then acquired through the thorax. For radiation dose reduction, the following was used: automated exposure control, adjustment of mA and/or kV according to patient size. COMPARISON: None. FINDINGS: Image quality: Diagnostic. Pulmonary arteries: Small burden of pulmonary embolus in the distal segmental arteries of the right lower lobe. Lower Neck: No enlarged lymph nodes. Thyroid: No thyroid nodules which require sonographic follow up, per consensus guidelines. Axillae: No enlarged lymph nodes. Chest Wall: Unremarkable. Bones: Unremarkable. Lungs and Pleura: No pneumothorax or pleural effusions. No consolidation or suspicious nodules. Heart: Heart size is normal. No pericardial effusion. Left ventricle is larger in size than the right, and there is no bowing of the interventricular septum. Thoracic Vessels: No aortic aneurysm. Mediastinum and [place]: No enlarged lymph nodes. Esophagus: No wall thickening. No hiatal hernia. Upper Abdomen: Stable left adrenal nodule measuring 1.1 cm since 2013, statistically stable IMPRESSION: Small burden of distal segmental pulmonary embolus. No evidence of heart strain. No infarct. No evidence of viral pneumonia. Findings discussed with Dr. Drew at 6:08 p.m. On 11/04/2023. Dictated by: Garfield Claudio M.D. on 11/04/2023 at 18:06 Approved by: Garfield Claudio M.D. on 11/04/2023 at 18:11 ECG Data Attestation: I personally reviewed and interpreted this ECG as follows: Prior ECG tracings: available for review Interpretation: Sinus bradycardia rate of 53 OK 178 QRS 84 QTC [address] elevation patient does have some nonspecific change. Patient has prior from 07/24/2022 nonspecific change. MDM Narrative Medical decision making narrative: 73-year-old female had her syncopal episode was hypotensive in the field, his bradycardic here hypotension slowly improving. Patient is afebrile. She feels much improved after receiving a dose of nor epi push dose pressor and fluids in the field. Patient does have an echo from July 20, 2022 with normal left ventricular thickness, wall size wall motion and systolic function with an EF of 60-65% normal right ventricular size and function with no significant valvular abnormalities. Labs show normal white count, hemoglobin, platelets are slightly low 138 predominance of lymphocytes and elevation of monocytes. INR 0.9, D-dimer is elevated at 1762, when age adjusted is still positive. Patient has hypokalemia with a potassium of 2.7 sodium is 137 chloride 104 CO2 of 28 BUN 23 with a creatinine 1.06 this is up from prior of January of 2023. Glucose is 138, LFTs are negative troponins less than 0.012 with a BNP of 368. COVID/influenza/RSV is COVID positive. EKG shows sinus bradycardia with nonspecific change. Chest x-ray hazy bibasilar opacities probably atelectasis. CT angio chest was obtained as D-dimer is elevated and patient is tachycardic, hypotensive, main risk factors tobacco use. Patient does have a right distal segmental pulmonary emboli, no right heart strain no viral pneumonia patient was COVID positive. Results were called to myself by Dr. Claudio. CTA report shows small burden distal segmental pulmonary embolus no evidence of heart strain no infarct no evidence of viral pneumonia. No pericardial effusion left ventricle is larger in size of the right and there is no bowing of the interventricular septum. Patient had near syncopal episode, hypotensive bradycardic in the field likely combination of dehydration, COVID infection and small pulmonary emboli. PESI score of 115, high risk, patient felt appropriate for admission with combination of symptoms, blood pressure has been slowly improving but has not totally normalized. She has been persistently bradycardic. Has had intermittent requirement of O2 does not use at baseline but does have a history of chronic tobacco use. Patient started on Lovenox for pulmonary emboli. She continues to be little bit hypotensive we will continue with fluids, discussed with Dr. Flores who accepts for admission he will review patient's chart to see if he wishes to start remdesivir and dexamethasone. Patient was started on O2 was weaned off for a period of time but then dropped into the 88% range and was restarted on 1-[address] Flores saw patient in the department. Discharge Plan Departure Patient Disposition: Admitted As Inpatient Clinical Impression: Near syncope, Hypokalemia, COVID-19 virus infection Pulmonary embolism Qualifiers: Pulmonary embolism type: single subsegmental (without acute cor pulmonale) Q ualified Code(s): I26.93 - Single subsegmental pulmonary embolism without acute cor pulmonale Admit Date/Time: 11/04/23 18:22 Admit Provider: Michael Flores V
[2023-11-04 16:49] LABS: Add Manual Diff / Slide Review NO; Basophils Absolute Auto 100 /uL (0-100); Basophils Percent Auto 1.6 % (0-2); Eosinophils Absolute Auto 100 /uL (0-450); Hematocrit 40.6 % (36-46); Hemoglobin 13.6 g/dL (12.0-16.0); Lymphocytes Absolute Auto 3000 /uL (1100-4500); Lymphocytes Percent Auto 49.8 % (25-40); Mean Corpuscular HGB Conc 33.5 % (30-36); Mean Corpuscular Hemoglobin 31.6 PG (26-34); Mean Corpuscular Volume 94.3 fL (80-100); Monocytes Absolute Auto 1000 /uL (0-900); Neutrophils Absolute Auto 1800 /uL (1500-7000); Neutrophils Percent Auto 30.6 % (50-75); Platelet Count 138 X10^3/uL (150-400); White Blood Cell Count 5.9 X10^3/uL (4.5-11.0)
[2023-11-04] MEDS: SODIUM CHLORIDE 0.9% 1,000 ML 1000 ML IV (16:52)
[2023-11-04 16:57] LABS: INR 0.9 (0.9-1.3); Prothrombin Time 10.8 SECONDS (9.4-12.5)
[2023-11-04 16:59] LABS: D Dimer 1762 ng/ml (<500)
[2023-11-04 17:00] LABS: PTT Partial Thromboplastin Tim 35 SECONDS (25.1-36.5)
[2023-11-04 17:02] LABS: Alanine Aminotransferase 15 IU/L (<35); Albumin 3.6 g/dL (3.5-5.0); Albumin Globulin Ratio 1.4 (1.0-2.8); Alkaline Phosphatase 44 U/L (38-126); Aspartate Aminotransferase 28 IU/L (14-36); BUN Creatinine Ratio 21.7 (6-22); Bilirubin Total 0.4 mg/dL (0.2-1.3); Blood Urea Nitrogen 23 mg/dL (7-17); Carbon Dioxide 28 mmol/L (22-32); Chloride 104 mmol/L (98-107); Creatine Kinase 47 U/L (30-135); Estimated Glomerular Filt Rate 55 mL/min (>60); Globulin 2.5 g/dL (1.7-4.1); Glucose 138 mg/dL (80-110); HEMOLYSIS 18 (0-50); Lipase 48 U/L (23-300); Sodium 137 mmol/L (137-145); Total Protein 6.1 g/dL (6.3-8.2)
[2023-11-04 17:13] LABS: Troponin I < 0.012 ng/mL (0.01-0.034)
[2023-11-04 17:15] LABS: Potassium 2.7 mmol/L (3.4-5.1)
[2023-11-04 17:16] LABS: NT-proBNP (BNP-Adult 18+) 368 pg/mL (<450)
--- NOTE | 2023-11-04 17:16 | DI.CT.S_ITS ---
PROCEDURE: CT ANGIO CHEST PE PROTOCOL INDICATIONS: near syncope, hypotension, tachy TECHNIQUE: After the administration of intravenous contrast, 2 mm thick sections acquired from the pulmonary apices to the posterior costophrenic angles. 3-dimensional maximum intensity projection (MIP) coronal and sagittal reformats were then acquired through the thorax. For radiation dose reduction, the following was used: automated exposure control, adjustment of mA and/or kV according to patient size. COMPARISON: None. FINDINGS: Image quality: Diagnostic. Pulmonary arteries: Small burden of pulmonary embolus in the distal segmental arteries of the right lower lobe. Lower Neck: No enlarged lymph nodes. Thyroid: No thyroid nodules which require sonographic follow up, per consensus guidelines. Axillae: No enlarged lymph nodes. Chest Wall: Unremarkable. Bones: Unremarkable. Lungs and Pleura: No pneumothorax or pleural effusions. No consolidation or suspicious nodules. Heart: Heart size is normal. No pericardial effusion. Left ventricle is larger in size than the right, and there is no bowing of the interventricular septum. Thoracic Vessels: No aortic aneurysm. Mediastinum and [place]: No enlarged lymph nodes. Esophagus: No wall thickening. No hiatal hernia. Upper Abdomen: Stable left adrenal nodule measuring 1.1 cm since 2014, statistically stable IMPRESSION: Small burden of distal segmental pulmonary embolus. No evidence of heart strain. No infarct. No evidence of viral pneumonia. Findings discussed with Dr. Drew at 6:08 p.m. On 11/04/2023. Dictated by: Garfield Claudio M.D. on 11/04/2023 at 18:06 Approved by: Garfield Claudio M.D. on 11/04/2023 at 18:11
[2023-11-04] MEDS: POTASSIUM CHLORIDE 20 MEQ/15 ML UDC 40 MEQ PO (17:20)
[2023-11-04 17:35] LABS: Influenza A - CEPHEID Flu A NEGATIVE (NEGATIVE); Influenza B - CEPHEID Flu B NEGATIVE (NEGATIVE); Respiratory Syncytial Virus Negative (Negative)
[2023-11-04 17:40] LABS: COVID-19 CEPHEID 4-PLEX PCR POSITIVE (Negative)
--- NOTE | 2023-11-04 18:13 | PC.NURSE ---
patient was reporting feeling cold. bear hugger was placed on the patient
[2023-11-04] MEDS: SODIUM CHLORIDE 0.9% 1,000 ML 200 ML IV (18:25)
--- NOTE | 2023-11-04 19:02 | P.HP_ITS ---
History of Present Illness History of Present Illness Date Patient Seen: 11/04/23 Time Patient Seen: 18:15 Date of Onset of Symptoms: 11/04/23 Chief complaint: LOC somulent Narrative: 73-year-old woman under the primary care of Adriana Quinn, ISIDRA reports that for the past week she has felt leg weakness and significant overwhelming fatigue. Today she went to the bathroom and before she was able to go became limp, and with decreased responsiveness. She states her nephew who is staying with her thought that she was . However she was able to respond to him throughout. He called 911 and upon arrival she had a blood pressure of 70 systolic, was given IV dose of norepinephrine, with blood pressure responding. She was mildly hypoxic and brought in on oxygen, and has remained mildly hypoxic with oxygen saturations in the mid 80s % range, responding to 1 L nasal cannula oxygen. Emergency Department workup was notable for covert positivity and a subsegmental pulmonary embolism. She is unaware of recent coded contacts and states she has not had fevers, chills, cough, or other respiratory symptoms, and denies nausea, vomiting or abdominal pain, other than a sensation that she has to have a bowel movement. She has never had COVID vaccination. She denies a history of blood clots, heart disease, vascular disease, diabetes or cancer. She was admitted to this hospital last year for severe hypothyroidism due to medication noncompliance. She reports she has been taking her medications as prescribed. She is a lifelong smoker, up to 3 and half packs of cigarettes daily, though states in the past few months she has cut down to 4 cigarettes daily PFSH Medical History Opioid use Social History household members: none Smoking Status: Current every day smoker alcohol intake: never Meds Home Medications and Allergies Home Medications Medication Instructions Recorded Confirmed Type acetaminophen 325 mg tablet 650 mg (2 x 325 mg) PO Q6H PRN 07/23/22 Rx Fever/Mild Pain (1-3) #30 tabs clonazepam 0.5 mg tablet 1 mg (2 x 0.5 mg) PO TID #90 tabs 07/23/22 Rx clonazepam 1 mg tablet 1 mg PO TID #90 tabs 07/23/22 07/20/22 Rx docusate sodium 100 mg capsule 100 mg PO BID #60 caps 07/23/22 Rx ergocalciferol (vitamin D2) 1,250 1,250 mcg PO QWEEK #7 caps 07/23/22 Rx mcg (50,000 unit) capsule (Drisdol) ergocalciferol (vitamin D2) 1,250 1 cap PO QWEEK #5 caps 07/23/22 07/20/22 Rx mcg (50,000 unit) capsule (Vitamin D2) hydrocodone 5 mg-acetaminophen 325 1 tab PO Q4HR PRN Pain, Moderate 07/23/22 Rx mg tablet (4-10 #10 tabs levothyroxine 100 mcg tablet 150 mcg (1.5 x 100 mcg) PO 07/23/22 Rx (Synthroid) DAILY@0600 #30 tabs morphine 15 mg tablet,extended 15 mg PO Q8HR #60 tabs 07/23/22 Rx release nicotine 21 mg/24 hr daily 21 mg topical DAILY #28 ea 07/23/22 Rx transdermal patch Allergies Allergy/AdvReac Type Severity Reaction Status Date / Time gabapentin [From Neurontin] Allergy Unknown Verified 08/08/18 13:15 Review of Systems Review of Systems ROS: Yes All systems reviewed with the patient and are negative except as otherwise documented Exam Vital Signs (past 8 hours): - 11/04/23 16:35 11/04/23 16:35 11/04/23 16:36 Pulse Rate 53 L 60 Respiratory Rate 18 30 H Blood Pressure 108/53 L 108/53 L Pulse Oximetry 97 93 Oxygen Delivery Method Room Air 11/04/23 16:45 11/04/23 16:47 11/04/23 16:47 Pulse Rate 53 L 58 L Respiratory Rate 17 23 Blood Pressure 88/51 L Pulse Oximetry 90 L 89 L Oxygen Delivery Method 11/04/23 16:50 11/04/23 16:50 11/04/23 16:56 Pulse Rate 66 53 L Respiratory Rate 22 22 Blood Pressure 99/78 Pulse Oximetry 92 95 Oxygen Delivery Method 11/04/23 16:56 11/04/23 17:00 11/04/23 17:01 Pulse Rate 56 L Respiratory Rate 21 Blood Pressure 88/52 L 90/48 L Pulse Oximetry 95 Oxygen Delivery Method 11/04/23 17:01 11/04/23 17:05 11/04/23 17:05 Pulse Rate 60 57 L Respiratory Rate 20 28 H Blood Pressure 101/51 L Pulse Oximetry 96 97 Oxygen Delivery Method 11/04/23 17:10 11/04/23 17:10 11/04/23 17:16 Pulse Rate 55 L 65 Respiratory Rate 22 28 H Blood Pressure 91/52 L Pulse Oximetry 97 97 Oxygen Delivery Method 11/04/23 17:16 11/04/23 17:20 11/04/23 17:20 Pulse Rate 53 L Respiratory Rate 19 Blood Pressure 90/45 L 87/46 L Pulse Oximetry 98 Oxygen Delivery Method 11/04/23 17:25 11/04/23 17:25 11/04/23 17:30 Pulse Rate 60 Respiratory Rate 29 H Blood Pressure 87/50 L 88/43 L Pulse Oximetry 99 Oxygen Delivery Method 11/04/23 17:30 11/04/23 17:43 11/04/23 17:43 Pulse Rate 55 L 58 L Respiratory Rate 25 H 9 L Blood Pressure 86/49 L Pulse Oximetry 98 99 Oxygen Delivery Method 11/04/23 17:45 11/04/23 17:45 11/04/23 17:50 Pulse Rate 59 L 58 L Respiratory Rate 17 Blood Pressure 96/50 L Pulse Oximetry 98 97 Oxygen Delivery Method 11/04/23 17:50 11/04/23 17:55 11/04/23 17:55 Pulse Rate 59 L Respiratory Rate Blood Pressure 91/49 L 89/48 L Pulse Oximetry 96 Oxygen Delivery Method 11/04/23 18:00 11/04/23 18:01 11/04/23 18:01 Pulse Rate 59 L 58 L Respiratory Rate Blood Pressure 99/46 L Pulse Oximetry 98 99 Oxygen Delivery Method 11/04/23 18:05 11/04/23 18:05 11/04/23 18:18 Pulse Rate 56 L 56 L Respiratory Rate Blood Pressure 86/48 L 88/52 L Pulse Oximetry 99 Oxygen Delivery Method Oxygen Delivery Method Room Air Narrative Exam Narrative: GENERAL: This is a thin, pleasant female patient, in no apparent respiratory distress. HEAD: Atraumatic. Normocephalic. No temporal or scalp tenderness. EYES: Pupils equal round and reactive. Extraocular motions intact. No scleral icterus. No injection or drainage. ENT: Mucous membranes pink and moist. NECK: Trachea midline. No JVD, bruits or lymphadenopathy. Supple, nontender, no meningeal signs. CARDIOVASCULAR: Regular rate and rhythm without murmurs, gallops, or rubs. RESPIRATORY: Diminished breath sounds throughout, no accessory muscle use, no rhonchi or wheezing. GASTROINTESTINAL: Abdomen soft, non-tender, nondistended. EXTREMITIES: No clubbing, cyanosis, or edema. no calf tenderness. BACK: Nontender without deformity or crepitance. No flank tenderness. NEUROLOGIC: Alert, oriented, speech fluent, full upper and lower motor strength, no focal deficits evident. DERMATOLOGIC: No rashes or skin lesions. Objective ECG Impression: Sinus bradycardia at 53 beats per minute Delayed R-wave progression, cannot rule out septal infarct Imaging *: Radiologist's impression: Chest x-ray: Hazy bibasilar of bibasilar opacities, probably atelectasis. CT angiogram chest: Small burden of distal segmental pulmonary embolus. No evidence of heart strain. No infarct. No evidence of viral pneumonia. Echocardiogram 07/20/2022: 1) Normal left ventricular thickness, size, wall motion, and systolic function (EF 60-65%). 2) Normal right ventricular size and function. 3) No significant valvular abnormalities. 4) No prior Echo available for comparison. Labs 11/04/23 16:41 11/04/23 16:41 Labs: Laboratory Results - last 24 hr 11/04/23 11/04/23 16:41 16:54 WBC 5.9 RBC 4.30 Hgb 13.6 Hct 40.6 MCV 94.3 MCH 31.6 MCHC 33.5 RDW 14.0 Plt Count 138 L Neut % (Auto) 30.6 L Lymph % (Auto) 49.8 H [place] % (Auto) 17.0 H Eos % (Auto) 1.0 L Baso % (Auto) 1.6 Neut # (Auto) 1800 Lymph # (Auto) 3000 [place] # (Auto) 1000 H Eos # (Auto) 100 Baso # (Auto) 100 PT 10.8 INR 0.9 APTT 35 D-Dimer 1762 H Sodium 137 Potassium 2.7 L* Chloride 104 Carbon Dioxide 28 BUN 23 H Creatinine 1.06 H Estimated GFR 55 L BUN/Creatinine Ratio 21.7 Glucose 138 H Calcium 9.0 Total Bilirubin 0.4 AST 28 ALT 15 Alkaline Phosphatase 44 Total Creatine Kinase 47 Troponin I < 0.012 NT-Pro-B Natriuret Pep 368 Total Protein 6.1 L Albumin 3.6 Globulin 2.5 Albumin/Globulin Ratio 1.4 Lipase 48 SARS-CoV-2 (PCR) Positive H Influenza A (RT-PCR) Flu a negative Influenza B (RT-PCR) Flu b negative RSV (PCR) Negative Assessment & Plan Assessment & Plan narrative: 1. Near syncopal episode, likely due to a combination of early COVID pneumonia, subsegmental pulmonary embolism, volume depletion. Treat as detailed below. 2. COVID infection, possible early pneumonia. Given hypoxia, hypotension and considering lack of prior immunization, treat assertive lady with remdesivir and dexamethasone. 3. Right lower lobe subsegmental pulmonary embolism. Possibly a sequela of COVID infection and recent sedentary nurse. Treat with enoxaparin 1 milligram/kilogram subcutaneous q.12 hours. 4. Acute hypoxemic respiratory failure due to 2. And 3. Treat with low-flow supplemental oxygen. She would accept intubation and mechanical ventilation on a short-term basis for reversal of this condition, though states she would not wish to remain on ventilator in the event of medical futility. Maintain NPO status pending clinical course to night. 5. Hypotension, possibly due to volume depletion versus early sepsis. Initiate sepsis bundle and monitor closely in ICU setting. Treat with IV hydration Tele ICU clinical nursing coordinator is notified and case reviewed in detail, and formal consult requested. 6. Hypertension. Hold routine antihypertensives pending medication reconciliation. 7. Hypothyroidism. In reassess and resume thyroid dosing tomorrow. Administer 50% dose intravenously if unable to take orals tomorrow. 8. Hypokalemia. Replete intravenously. Check magnesium. 9. Acute kidney injury due to volume depletion versus ATN. Monitor with IV hydration. 10. DVT prophylaxis: Addressed on full dose anticoagulation for pulmonary embolism. 11. Code status: Full code. She states she would not wish prolonged resuscitative efforts or prolonged intubation and mechanical ventilation in the event of medical futility. Plan: -admit to ICU -tele ICU consultation -Remdesivir 200 mg IV now then 100 mg IV daily -dexamethasone 6 mg IV daily -enoxaparin 1 milligram/kilogram subcutaneous q.12 hours -supplemental low-flow oxygen -check lactate and serial lactates if elevated with sepsis bundle guidelines -IV hydration -monitor renal function and potassium and electrolytes -restart thyroid replacement tomorrow -home medication reconciliation, assess above medication list and antihypertensives -full code status 60 minutes of critical care time spent Quality MIPS - Admit I confirm the patient?s Advance Care Plan is present, Code status is documented, Surrogate decision maker is in patient?s record [If Yes, STOP here]: Yes MIPS - Meds 'Current medications' to include all prescriptions, [id number] products, herbals, cannabis/cannabidiol products, and vitamin/mineral/dietary (nutritional) supplements. I did NOT confirm, update, or review the patient?s current list of medications today.: Yes PROFEE Charge Codes Critical Care: [id number]
--- NOTE | 2023-11-04 19:07 | PC.NURSE ---
Patient was trialed off o2 and her sat dropped to 88% on RA. She was placed back on 2l NC and she came back up to 98%. She was not in acute distress during her stay in the ED
--- NOTE | 2023-11-04 19:17 | PC.NURSE ---
Pt arrived to unit from ED. Pt transferred into ICU bed and connected to monitoring. VS stable.
[2023-11-04 19:21] LABS: Magnesium 1.9 mg/dL (1.6-2.3)
[2023-11-04 19:51] LABS: TSH w/ Reflex to FT4 3.68 uIU/mL (0.47-4.68)
[2023-11-04 19:52] LABS: Lactate (Lactic Acid) 0.7 mmol/L (0.7-2.1)
[2023-11-04] MEDS: POTASSIUM CHLORIDE IN WATER 10 MEQ/100 ML PIGGYBACK 100 MEQ IV ×3 (20:11→22:42)
[2023-11-04] MEDS: ENOXAPARIN 100 MG/ML SYRINGE 65 MG SUBCUT ×2 (20:11→20:14)
--- NOTE | 2023-11-04 20:39 | PM.CN.EICU ---
History of Present Illness Consult details IF CAMERA ACTIVATED, patient seen via real-time interactive audiovisual communication: Camera activated Chief complaint: LOC somulent Consent obtained for tele-process control engineer care: Yes Patient Location: ICU Provider location (State): [place] Other participants/roles: No one else Narrative: 68 yo F w/ active 3 ppd tobacco habit and hypothyroidism who presented to ED w/ fatigue; EMS found her to have a non-invasive SBP in 70s. ED workup revealed SARS-CoV2 infection as well as a RLL subsegmental PE. Since that episode, she has been hemodynamically stable and requiring 1 L/min NC O2. Pul CTA was not suggestive of R heart strain; lung garcia were clear. [facility] Medical History Opioid use Social History household members: none Smoking Status: Current every day smoker alcohol intake: never Current Medications Current Medications Medications: Home Medications acetaminophen 325 mg tablet 650 mg (2 x 325 mg) PO Q6H PRN Fever/Mild Pain (1-3) #30 tabs 07/23/22 [Rx] clonazepam 0.5 mg tablet 1 mg (2 x 0.5 mg) PO TID #90 tabs 07/23/22 [Rx] clonazepam 1 mg tablet 1 mg PO TID #90 tabs 07/23/22 [Rx Confirmed 07/20/22] docusate sodium 100 mg capsule 100 mg PO BID #60 caps 07/23/22 [Rx] ergocalciferol (vitamin D2) 1,250 mcg (50,000 unit) capsule (Drisdol) 1,250 mcg PO QWEEK #7 caps 07/23/22 [Rx] ergocalciferol (vitamin D2) 1,250 mcg (50,000 unit) capsule (Vitamin D2) 1 cap PO QWEEK #5 caps 07/23/22 [Rx Confirmed 07/20/22] hydrocodone 5 mg-acetaminophen 325 mg tablet 1 tab PO Q4HR PRN Pain, Moderate (4-10 #10 tabs 07/23/22 [Rx] levothyroxine 100 mcg tablet (Synthroid) 150 mcg (1.5 x 100 mcg) PO DAILY@0600 #30 tabs 07/23/22 [Rx] morphine 15 mg tablet,extended release 15 mg PO Q8HR #60 tabs 07/23/22 [Rx] nicotine 21 mg/24 hr daily transdermal patch 21 mg topical DAILY #28 ea 07/23/22 [Rx] Visit Medications (administered) Generic Name Dose Route Start Last Admin Trade Name Marcia PRN Reason Stop Dose Admin Enoxaparin Sodium 65 mg 11/04/23 21:00 11/04/23 20:14 Enoxaparin 100 Mg/Ml Syringe SUBCUT 65 mg BID CHALO Administration Sodium Chloride 1,000 mls @ 200 mls/hr 11/04/23 18:15 11/04/23 19:05 Normal Saline 0.9% IV 0 mls/hr CONT CHALO Infusion POTASSIUM CHLORIDE IN WATER 10 meq in 100 mls @ 100 mls/hr 11/04/23 19:00 11/04/23 20:11 Potassium Cl 10 Meq/100 Ml Mena IV 11/05/23 00:59 100 mls/hr Q1H CHALO Administration Exam Vital Signs (past 8 hours): - 11/04/23 16:35 11/04/23 16:35 11/04/23 16:36 Temperature Pulse Rate 53 L 60 Respiratory Rate 18 30 H Blood Pressure 108/53 L 108/53 L Pulse Oximetry 97 93 Oxygen Delivery Method Room Air Oxygen Flow Rate 11/04/23 16:45 11/04/23 16:47 11/04/23 16:47 Temperature Pulse Rate 53 L 58 L Respiratory Rate 17 23 Blood Pressure 88/51 L Pulse Oximetry 90 L 89 L Oxygen Delivery Method Oxygen Flow Rate 11/04/23 16:50 11/04/23 16:50 11/04/23 16:56 Temperature Pulse Rate 66 53 L Respiratory Rate 22 22 Blood Pressure 99/78 Pulse Oximetry 92 95 Oxygen Delivery Method Oxygen Flow Rate 11/04/23 16:56 11/04/23 17:00 11/04/23 17:01 Temperature Pulse Rate 56 L Respiratory Rate 21 Blood Pressure 88/52 L 90/48 L Pulse Oximetry 95 Oxygen Delivery Method Oxygen Flow Rate 11/04/23 17:01 11/04/23 17:05 11/04/23 17:05 Temperature Pulse Rate 60 57 L Respiratory Rate 20 28 H Blood Pressure 101/51 L Pulse Oximetry 96 97 Oxygen Delivery Method Oxygen Flow Rate 11/04/23 17:10 11/04/23 17:10 11/04/23 17:16 Temperature Pulse Rate 55 L 65 Respiratory Rate 22 28 H Blood Pressure 91/52 L Pulse Oximetry 97 97 Oxygen Delivery Method Oxygen Flow Rate 11/04/23 17:16 11/04/23 17:20 11/04/23 17:20 Temperature Pulse Rate 53 L Respiratory Rate 19 Blood Pressure 90/45 L 87/46 L Pulse Oximetry 98 Oxygen Delivery Method Oxygen Flow Rate 11/04/23 17:25 11/04/23 17:25 11/04/23 17:30 Temperature Pulse Rate 60 Respiratory Rate 29 H Blood Pressure 87/50 L 88/43 L Pulse Oximetry 99 Oxygen Delivery Method Oxygen Flow Rate 11/04/23 17:30 11/04/23 17:43 11/04/23 17:43 Temperature Pulse Rate 55 L 58 L Respiratory Rate 25 H 9 L Blood Pressure 86/49 L Pulse Oximetry 98 99 Oxygen Delivery Method Oxygen Flow Rate 11/04/23 17:45 11/04/23 17:45 11/04/23 17:50 Temperature Pulse Rate 59 L 58 L Respiratory Rate 17 Blood Pressure 96/50 L Pulse Oximetry 98 97 Oxygen Delivery Method Oxygen Flow Rate 11/04/23 17:50 11/04/23 17:55 11/04/23 17:55 Temperature Pulse Rate 59 L Respiratory Rate Blood Pressure 91/49 L 89/48 L Pulse Oximetry 96 Oxygen Delivery Method Oxygen Flow Rate 11/04/23 18:00 11/04/23 18:01 11/04/23 18:01 Temperature Pulse Rate 59 L 58 L Respiratory Rate Blood Pressure 99/46 L Pulse Oximetry 98 99 Oxygen Delivery Method Oxygen Flow Rate 11/04/23 18:05 11/04/23 18:05 11/04/23 18:11 Temperature Pulse Rate 56 L 58 L Respiratory Rate Blood Pressure 86/48 L Pulse Oximetry 99 96 Oxygen Delivery Method Oxygen Flow Rate 11/04/23 18:11 11/04/23 18:15 11/04/23 18:15 Temperature Pulse Rate 58 L Respiratory Rate Blood Pressure 88/44 L 86/47 L Pulse Oximetry 90 L Oxygen Delivery Method Oxygen Flow Rate 11/04/23 18:18 11/04/23 18:20 11/04/23 18:20 Temperature Pulse Rate 56 L 55 L Respiratory Rate Blood Pressure 88/52 L 88/52 L Pulse Oximetry 98 Oxygen Delivery Method Oxygen Flow Rate 11/04/23 18:25 11/04/23 18:25 11/04/23 18:30 Temperature Pulse Rate 54 L 55 L Respiratory Rate 25 H Blood Pressure 90/52 L Pulse Oximetry 98 97 Oxygen Delivery Method Oxygen Flow Rate 11/04/23 18:30 11/04/23 18:35 11/04/23 18:35 Temperature Pulse Rate 55 L Respiratory Rate 15 Blood Pressure 103/54 L 95/54 L Pulse Oximetry 96 Oxygen Delivery Method Oxygen Flow Rate 11/04/23 18:40 11/04/23 18:40 11/04/23 18:46 Temperature Pulse Rate 59 L Respiratory Rate 13 Blood Pressure 91/52 L 89/46 L Pulse Oximetry 96 Oxygen Delivery Method Oxygen Flow Rate 11/04/23 18:46 11/04/23 18:50 11/04/23 18:50 Temperature Pulse Rate 57 L 64 Respiratory Rate 12 12 Blood Pressure 79/43 L Pulse Oximetry 96 95 Oxygen Delivery Method Oxygen Flow Rate 11/04/23 18:52 11/04/23 18:54 11/04/23 18:54 Temperature Pulse Rate 57 L 58 L Respiratory Rate 12 14 Blood Pressure 92/72 Pulse Oximetry 96 96 Oxygen Delivery Method Oxygen Flow Rate 11/04/23 20:00 11/04/23 20:15 11/04/23 20:18 Temperature 97.9 F Pulse Rate 53 L Respiratory Rate Blood Pressure 99/54 L Pulse Oximetry 97 Oxygen Delivery Method Oxygen Flow Rate 2 11/04/23 20:18 11/04/23 20:30 11/04/23 20:31 Temperature Pulse Rate 55 L 70 Respiratory Rate 25 H Blood Pressure 130/56 L Pulse Oximetry 98 Oxygen Delivery Method Oxygen Flow Rate 11/04/23 20:31 Temperature Pulse Rate 60 Respiratory Rate 31 H Blood Pressure Pulse Oximetry Oxygen Delivery Method Oxygen Flow Rate 0 Oxygen Delivery Method Room Air Oxygen Flow Rate 0 Const General: cooperative and comfortable Resp Effort & Inspection: normal respiratory effort and able to speak in complete sentences Cardio Rate: regular rate Rhythm: regular rhythm Neuro Other: RASS 0 Objective Labs 11/04/23 16:41 11/04/23 16:41 Labs: Laboratory Results - last 24 hr 11/04/23 11/04/23 11/04/23 16:41 16:54 19:30 WBC 5.9 RBC 4.30 Hgb 13.6 Hct 40.6 MCV 94.3 MCH 31.6 MCHC 33.5 RDW 14.0 Plt Count 138 L Neut % (Auto) 30.6 L Lymph % (Auto) 49.8 H [place] % (Auto) 17.0 H Eos % (Auto) 1.0 L Baso % (Auto) 1.6 Neut # (Auto) 1800 Lymph # (Auto) 3000 [place] # (Auto) 1000 H Eos # (Auto) 100 Baso # (Auto) 100 PT 10.8 INR 0.9 APTT 35 D-Dimer 1762 H Sodium 137 Potassium 2.7 L* Chloride 104 Carbon Dioxide 28 BUN 23 H Creatinine 1.06 H Estimated GFR 55 L BUN/Creatinine Ratio 21.7 Glucose 138 H Lactate 0.7 Calcium 9.0 Magnesium 1.9 Total Bilirubin 0.4 AST 28 ALT 15 Alkaline Phosphatase 44 Total Creatine Kinase 47 Troponin I < 0.012 NT-Pro-B Natriuret Pep 368 Total Protein 6.1 L Albumin 3.6 Globulin 2.5 Albumin/Globulin Ratio 1.4 Lipase 48 TSH 3.68 SARS-CoV-2 (PCR) Positive H Influenza A (RT-PCR) Flu a negative Influenza B (RT-PCR) Flu b negative RSV (PCR) Negative Assessment & Plan Assessment and plan (1) COVID-19 virus infection: Status: Acute Plan: -Agree w/ dexamethasone -Remdesivir probably not necessary but will defer to bedside service (2) Pulmonary embolism: Qualifiers: Pulmonary embolism type: single subsegmental (without acute cor pulmonale) Qualified Code(s): I26.93 - Single subsegmental pulmonary embolism without acute cor pulmonale Status: Acute Plan: -Enoxaparin (3) Hypokalemia: Status: Acute Plan: -Repletion (4) Hypothyroidism: Qualifiers: Hypothyroidism type: unspecified Qualified Code(s): E03.9 - Hypothyroidism, unspecified Status: Acute Plan: -Levothyroxine (5) Tobacco abuse: Status: Acute Plan: -Cessation counseling Time-Based Coding :: [TOTAL MINUTES] spent with patient and on the chart (including review of chart, obtaining history, exam, reviewing outside data, placing orders, documenting exam and treatment plan, and counseling patient) on [DATE].
[2023-11-04] MEDS: REMDESIVIR 200 MG in SODIUM CHLORIDE 0.9% 250 ML 250 MG IV (21:00)
[2023-11-04] MEDS: ENOXAPARIN 40 MG/0.4 ML SYRINGE 65 MG SUBCUT (21:02)
[2023-11-04] MEDS: DEXTROSE 5%-0.45% NS 1,000 ML 100 ML IV (23:35)
[2023-11-05] VITALS (20 sets, daily range): BP systolic 82–106; BP diastolic 45–65; PULSE 43–63; RESP 11–23; TEMP 35.9–36.5; O2SAT 93–97
[2023-11-05] MEDS: POTASSIUM CHLORIDE IN WATER 10 MEQ/100 ML PIGGYBACK 100 MEQ IV ×3 (00:25→03:30)
[2023-11-05 01:10] LABS: MRSA (Nasal) PCR NOT DETECTED (Not Detect)
[2023-11-05 04:56] LABS: Add Manual Diff / Slide Review NO; Basophils Absolute Auto 0 /uL (0-100); Eosinophils Absolute Auto 0 /uL (0-450); Hemoglobin 12.6 g/dL (12.0-16.0); Lymphocytes Absolute Auto 2400 /uL (1100-4500); Lymphocytes Percent Auto 54.6 % (25-40); Mean Corpuscular HGB Conc 33.2 % (30-36); Mean Corpuscular Hemoglobin 31.2 PG (26-34); Monocytes Absolute Auto 500 /uL (0-900); Monocytes Percent Auto 10.6 % (3-14); Neutrophils Absolute Auto 1500 /uL (1500-7000); Neutrophils Percent Auto 32.8 % (50-75); Platelet Count 110 X10^3/uL (150-400); Red Blood Cell Count 4.05 X10^6/uL (4.0-5.2); Red Cell Distribution Width 14.2 % (11.6-14.8); White Blood Cell Count 4.4 X10^3/uL (4.5-11.0)
[2023-11-05 05:05] LABS: BUN Creatinine Ratio 20.5 (6-22); Blood Urea Nitrogen 15 mg/dL (7-17); Calcium 8.5 mg/dL (8.4-10.2); Carbon Dioxide 26 mmol/L (22-32); Chloride 107 mmol/L (98-107); Estimated Glomerular Filt Rate > 60 mL/min (>60); Glucose 103 mg/dL (80-110); HEMOLYSIS < 15 (0-50); Potassium 3.8 mmol/L (3.4-5.1); Sodium 134 mmol/L (137-145)
--- NOTE | 2023-11-05 07:00 | PC.NURSE ---
Building Manager Note-Patient admitted at 1900 from ED, Covid-19 positive, placed in Droplet precautions. On 2L NC SpO2 >92%, denies shortness of breath, no dyspnea or cough, lung sounds dim/coarse. Drowsy, but oriented, soft spoken with hoarse voice, some rambling. K+ riders infused, Remdesivir given, IVF ordered. VSS.
[2023-11-05] MEDS: DEXAMETHASONE 10 MG/ML VIAL 6 MG IV (08:10)
[2023-11-05] MEDS: NICOTINE 21 MG PATCH TOP (08:10)
[2023-11-05] MEDS: PANTOPRAZOLE 40 MG VIAL IV (08:11)
[2023-11-05] MEDS: MORPHINE ER 15 MG TABLET PO ×3 (08:13→22:00)
[2023-11-05] MEDS: clonazePAM 0.5 MG TABLET 1 MG PO ×3 (08:13→20:38)
[2023-11-05] MEDS: ENOXAPARIN 100 MG/ML SYRINGE 65 MG SUBCUT ×2 (08:14→20:38)
[2023-11-05] MEDS: SODIUM CHLORIDE 0.9% FLUSH 10 ML IV ×2 (08:14→20:38)
[2023-11-05] MEDS: HYDROCODONE/ACET 5/325 TABLET 1 TAB PO ×2 (08:15→17:42)
[2023-11-05] MEDS: DEXTROSE 5%-0.45% NS 1,000 ML 100 ML IV ×2 (08:16→17:42)
--- NOTE | 2023-11-05 08:23 | P.PN_ITS ---
Subjective Subjective Interval history: S: She feels better today, she was not short of breath and is off oxygen. No coughing. She also denies any confusion, or diarrhea. Exam Vital Signs (past 8 hours): - 11/05/23 00:30 11/05/23 01:00 11/05/23 01:01 Temperature Pulse Rate 50 L 51 L Respiratory Rate 14 14 Blood Pressure 82/45 L Pulse Oximetry 96 95 Oxygen Delivery Method Oxygen Flow Rate 2 Fraction of Inspired Oxygen 11/05/23 01:01 11/05/23 01:03 11/05/23 01:03 Temperature Pulse Rate 50 L 51 L Respiratory Rate 14 16 Blood Pressure 88/50 L Pulse Oximetry 95 96 Oxygen Delivery Method Oxygen Flow Rate Fraction of Inspired Oxygen 11/05/23 02:00 11/05/23 02:00 11/05/23 03:00 Temperature Pulse Rate 51 L Respiratory Rate 16 Blood Pressure 87/47 L 90/51 L Pulse Oximetry 93 Oxygen Delivery Method Oxygen Flow Rate 2 Fraction of Inspired Oxygen 11/05/23 03:00 11/05/23 04:00 11/05/23 04:00 Temperature 97.7 F Pulse Rate 50 L 52 L Respiratory Rate 18 13 Blood Pressure 101/53 L Pulse Oximetry 93 94 Oxygen Delivery Method Oxygen Flow Rate 2 2 Fraction of Inspired Oxygen 11/05/23 04:00 11/05/23 05:00 11/05/23 05:00 Temperature Pulse Rate 47 L Respiratory Rate 13 Blood Pressure 100/52 L Pulse Oximetry 95 Oxygen Delivery Method Nasal Cannula Oxygen Flow Rate 2 Fraction of Inspired Oxygen 11/05/23 06:00 11/05/23 06:00 11/05/23 07:30 Temperature Pulse Rate 48 L 46 L Respiratory Rate 13 Blood Pressure 97/55 L Pulse Oximetry 96 96 Oxygen Delivery Method Nasal Cannula Oxygen Flow Rate 2 2 Fraction of Inspired Oxygen 28 Fraction of Inspired Oxygen 28 SaO2/FiO2 Ratio 342 Oxygen Delivery Method Nasal Cannula Oxygen Flow Rate 2 Narrative Exam Narrative: NAD, alert and oriented. Fluent speech. Lungs are clear, normal rate and effort. Heart is regular, no murmur gallop or rub. Abdomen is soft, non distended. Extremities are free of edema. Objective Labs 11/05/23 04:35 11/05/23 04:35 Labs: Laboratory Results - last 24 hr 11/04/23 11/04/23 11/04/23 16:41 16:54 19:30 WBC 5.9 RBC 4.30 Hgb 13.6 Hct 40.6 MCV 94.3 MCH 31.6 MCHC 33.5 RDW 14.0 Plt Count 138 L Neut % (Auto) 30.6 L Lymph % (Auto) 49.8 H Thurston % (Auto) 17.0 H Eos % (Auto) 1.0 L Baso % (Auto) 1.6 Neut # (Auto) 1800 Lymph # (Auto) 3000 Thurston # (Auto) 1000 H Eos # (Auto) 100 Baso # (Auto) 100 PT 10.8 INR 0.9 APTT 35 D-Dimer 1762 H Sodium 137 Potassium 2.7 L* Chloride 104 Carbon Dioxide 28 BUN 23 H Creatinine 1.06 H Estimated GFR 55 L BUN/Creatinine Ratio 21.7 Glucose 138 H Lactate 0.7 Calcium 9.0 Magnesium 1.9 Total Bilirubin 0.4 AST 28 ALT 15 Alkaline Phosphatase 44 Total Creatine Kinase 47 Troponin I < 0.012 NT-Pro-B Natriuret Pep 368 Total Protein 6.1 L Albumin 3.6 Globulin 2.5 Albumin/Globulin Ratio 1.4 Lipase 48 TSH 3.68 Nasal Screen MRSA (PCR) SARS-CoV-2 (PCR) Positive H Influenza A (RT-PCR) Flu a negative Influenza B (RT-PCR) Flu b negative RSV (PCR) Negative 11/04/23 11/05/23 23:40 04:35 WBC 4.4 L RBC 4.05 Hgb 12.6 Hct 38.0 MCV 94.0 MCH 31.2 MCHC 33.2 RDW 14.2 Plt Count 110 L Neut % (Auto) 32.8 L Lymph % (Auto) 54.6 H Thurston % (Auto) 10.6 Eos % (Auto) 1.0 L Baso % (Auto) 1.0 Neut # (Auto) 1500 Lymph # (Auto) 2400 Thurston # (Auto) 500 Eos # (Auto) 0 Baso # (Auto) 0 PT INR APTT D-Dimer Sodium 134 L Potassium 3.8 Chloride 107 Carbon Dioxide 26 BUN 15 Creatinine 0.73 Estimated GFR > 60 BUN/Creatinine Ratio 20.5 Glucose 103 Lactate Calcium 8.5 Magnesium Total Bilirubin AST ALT Alkaline Phosphatase Total Creatine Kinase Troponin I NT-Pro-B Natriuret Pep Total Protein Albumin Globulin Albumin/Globulin Ratio Lipase TSH Nasal Screen MRSA (PCR) Not detected SARS-CoV-2 (PCR) Influenza A (RT-PCR) Influenza B (RT-PCR) RSV (PCR) [facility] Medical History Opioid use Social History household members: none Smoking Status: Current every day smoker alcohol intake: never Assessment & Plan Assessment & Plan narrative: 1. Near syncopal episode, likely due to a combination of early COVID pneumonia, subsegmental pulmonary embolism, volume depletion. Present on admission and improved. 2. COVID infection, possible early pneumonia. Given hypoxia, hypotension and considering lack of prior immunization, present on admission improving.. 3. Right lower lobe subsegmental pulmonary embolism. Possibly a sequela of COVID infection and recent sedentary nurse. Treat with enoxaparin 1 milligram/kilogram subcutaneous q.12 hours. 4. Acute hypoxemic respiratory failure due to 2. And 3. Treat with low-flow supplemental oxygen. She would accept intubation and mechanical ventilation on a short-term basis for reversal of this condition, though states she would not wish to remain on ventilator in the event of medical futility. Maintain NPO status pending clinical course to night. 5. Hypotension, possibly due to volume depletion versus early sepsis. Initiate sepsis bundle and monitor closely in ICU setting. Treat with IV hydration Tele ICU shale miner blasting is notified and case reviewed in detail, and formal consult requested. 6. Hypertension. Hold routine antihypertensives pending medication reconciliation. 7. Hypothyroidism. In reassess and resume thyroid dosing tomorrow. Administer 50% dose intravenously if unable to take orals tomorrow. 8. Hypokalemia. Replete intravenously. Check magnesium. 9. Acute kidney injury due to volume depletion versus ATN. Monitor with IV hydration. 10. DVT prophylaxis: Addressed on full dose anticoagulation for pulmonary embolism. 11. Code status: Full code. She states she would not wish prolonged resuscitative efforts or prolonged intubation and mechanical ventilation in the event of medical futility. Plan: -transfer out of ICU -stop Remdesivir -dexamethasone 6 mg IV daily will continue -enoxaparin 1 milligram/kilogram subcutaneous q.12 hours, will continue. -weaned off O2. -IV hydration -monitor renal function and potassium and electrolytes, stable. -restart thyroid replacement -home medication reconciliation, assess above medication list and antihypertensives -full code status BEVERLY: home 11/05 (Eric Lozaon) Time-Based Coding :: [TOTAL MINUTES] spent with patient and on the chart (including review of chart, obtaining history, exam, reviewing outside data, placing orders, documenting exam and treatment plan, and counseling patient) on [DATE]. Quality VTE Deep Vein Thrombosis/Pulmonary Embolism Present on Admission: Yes
--- NOTE | 2023-11-05 12:36 | CM.DANOTE ---
Initial DCP Assessment Note Pt is a 73 yo female, resident at [facility] in [place], arrives with weakness and loss of consciousness, admitted for further work up and management of COVID+ virus , PE, hypokalemia, hypothyroidism. PCP: Korin Quinn Payer: CHINO Luther+Angela Reviewed chart, pt discussed in multidisciplinary rounds this morning. Patient likely to be here another 24-48 hrs. According to conversation with patient, she lives independently in [facility]. Patient reports no hx of HH services and does not feel she requires this currently. Patient unsure if she has TAB (TAB is inactive according to admitting). Patient discussed with RN who reports patient has been up in the room and does not feel PT order is necessary. Team updated in multidisciplinary rounds. No barriers identified at this time to patient's safe discharge home w/friends and family to check in with her; close outpatient f/u recommended. CM team will plan to follow clinical course closely in case any DC needs or concerns arise. PHOEBE Turpin Discharge Planning/Care Management CM Discharge Assessment Start: 11/05/23 12:32 Freq: Status: Active Protocol: Document 11/05/23 12:32 MARLENI (Rec: 11/05/23 12:36 MARLENI [id number]) Discharge Planning Assessment Assigned Compliance Auditor PHOEBE Alosno DPOA/Assigned Designee Name Hakan Santiago, friend Contact Information [phone] Advance Directives? No History Provided By Patient,Medical Record Prior Living Arrangements Apartment/Condo Comment [facility] Household Members none Type of transporation used prior to Relies on Others admit Independent with ADL's Yes: Poor activity tolerance, smokes Is patient alert and oriented? Yes Needs Assistance With Home Chores / Shopping Comment Patient uses four wheel walker mainly outside Barriers to Discharge No Discharge Plan Home Transportation Arrangement Friend to transport
--- NOTE | 2023-11-05 17:18 | PC.NURSE ---
Day Shift Note Pt alert and oriented x3. Pt home meds reordered by Dr. Arrieta. SB in the 40s to 50s, occasionally down to the upper 30s. MD aware. sPo2 92-95% on RA. SBA to BSC. Call light within reach, using appropriately to make needs known.
[2023-11-06] VITALS (9 sets, daily range): BP systolic 95–129; BP diastolic 51–61; PULSE 37–50; RESP 12–17; TEMP 36.3–36.6; O2SAT 90–95
[2023-11-06] MEDS: DEXTROSE 5%-0.45% NS 1,000 ML 100 ML IV (03:18)
[2023-11-06 05:48] LABS: Hematocrit 36.8 % (36-46); Hemoglobin 12.5 g/dL (12.0-16.0); Mean Corpuscular HGB Conc 33.9 % (30-36); Mean Corpuscular Hemoglobin 31.5 PG (26-34); Mean Corpuscular Volume 92.9 fL (80-100); Platelet Count 105 X10^3/uL (150-400); Red Blood Cell Count 3.96 X10^6/uL (4.0-5.2); Red Cell Distribution Width 13.8 % (11.6-14.8); White Blood Cell Count 2.8 X10^3/uL (4.5-11.0)
[2023-11-06 06:02] LABS: BUN Creatinine Ratio 12.7 (6-22); Blood Urea Nitrogen 9 mg/dL (7-17); Calcium 8.9 mg/dL (8.4-10.2); Carbon Dioxide 27 mmol/L (22-32); Chloride 107 mmol/L (98-107); Estimated Glomerular Filt Rate > 60 mL/min (>60); Glucose 139 mg/dL (80-110); HEMOLYSIS < 15 (0-50); Potassium 3.5 mmol/L (3.4-5.1); Sodium 135 mmol/L (137-145)
[2023-11-06] MEDS: LEVOTHYROXINE 100 MCG TABLET 150 MCG PO (07:42)
[2023-11-06] MEDS: MORPHINE ER 15 MG TABLET PO (07:43)
[2023-11-06] MEDS: clonazePAM 0.5 MG TABLET 1 MG PO (07:44)
[2023-11-06] MEDS: DEXAMETHASONE 10 MG/ML VIAL 6 MG IV (07:45)
[2023-11-06] MEDS: NICOTINE 21 MG PATCH TOP (07:45)
[2023-11-06] MEDS: ENOXAPARIN 100 MG/ML SYRINGE 65 MG SUBCUT (07:45)
[2023-11-06] MEDS: PANTOPRAZOLE 40 MG VIAL IV (07:45)
[2023-11-06] MEDS: SODIUM CHLORIDE 0.9% FLUSH 10 ML IV (07:46)
--- NOTE | 2023-11-06 10:22 | PM.DS.1 ---
History of Present Illness History of Present Illness Date Patient Seen: 11/06/23 Time Patient Seen: 10:23 Date of Onset of Symptoms: 11/04/23 Chief complaint: LOC somnolent Narrative: Per admitting provider, 73-year-old woman under the primary care of ISIDRA Rosas reports that for the past week she has felt leg weakness and significant overwhelming fatigue. Today she went to the bathroom and before she was able to go became limp, and with decreased responsiveness. She states her nephew who is staying with her thought that she was . However she was able to respond to him throughout. He called 911 and upon arrival she had a blood pressure of 70 systolic, was given IV dose of norepinephrine, with blood pressure responding. She was mildly hypoxic and brought in on oxygen, and has remained mildly hypoxic with oxygen saturations in the mid 80s % range, responding to 1 L nasal cannula oxygen. Emergency Department workup was notable for covert positivity and a subsegmental pulmonary embolism. She is unaware of recent coded contacts and states she has not had fevers, chills, cough, or other respiratory symptoms, and denies nausea, vomiting or abdominal pain, other than a sensation that she has to have a bowel movement. She has never had COVID vaccination. She denies a history of blood clots, heart disease, vascular disease, diabetes or cancer. She was admitted to this hospital last year for severe hypothyroidism due to medication noncompliance. She reports she has been taking her medications as prescribed. She is a lifelong smoker, up to 3 and half packs of cigarettes daily, though states in the past few months she has cut down to 4 cigarettes daily Discharge Providers Provider Date of admission: 11/04/23 18:22 Discharge Date: 11/06/23 Primary care physician: ISIDRA Mai Consults: 11/04/23 18:52 Consult to Tele-cryptologic technician operator/analyst Routine Comment: Consulting Provider: Ken Tele-intensivists Reason for consultation: Type Mapper services Has provider been notified: Yes Discharge provider: Marck Benoit DO Summary Hospital Course Discharge Diagnosis: 1. Near syncopal episode, likely due to a combination of early COVID pneumonia, subsegmental pulmonary embolism, volume depletion. Present on admission and improved. 2. Sepsis due to COVID infection with hypoxic respiratory failure and hypotension. 3. Right lower lobe subsegmental pulmonary embolism. 4. Acute hypoxemic respiratory failure due to 2. And 3. 6. Hypertension. 7. Hypothyroidism. 8. Hypokalemia. 9. Acute kidney injury due Hospital Course: This is a 73 year old female admitted after a near syncopal episode. Evaluation showed possible sepsis with LARISA, hypoxic respiratory failure and hypotension. She was found to have a subsegemental PE. Was initially on heparin infusion, changed to oral apixaban once no evidence of R heart strain was found and her hemodynamics improved. She was Covid positive, and did improve with steroids. She was able to be weaned off supplemental oxygen and when she felt improved she was discharged home with a 3 month supply of apixaban. She should follow up with her PCP shortlly to review her hospitalization. No other medication changes were recommended on discharge. Time Spent with Patient Time spent: Greater than 30 minutes Exam Vital Signs (past 8 hours): - 11/06/23 03:18 11/06/23 03:18 11/06/23 04:00 Temperature 97.4 F L Pulse Rate 50 L 38 L Respiratory Rate 12 16 Blood Pressure 129/61 129/61 Pulse Oximetry 93 92 Oxygen Delivery Method Oxygen Flow Rate 0 11/06/23 04:00 11/06/23 06:00 11/06/23 07:50 Temperature Pulse Rate 45 L 38 L Respiratory Rate 14 14 Blood Pressure 111/56 L Pulse Oximetry 93 91 Oxygen Delivery Method Oxygen Flow Rate 11/06/23 07:50 11/06/23 08:00 11/06/23 08:00 Temperature Pulse Rate 41 L 39 L Respiratory Rate 14 17 Blood Pressure Pulse Oximetry 92 94 Oxygen Delivery Method Room Air Oxygen Flow Rate 11/06/23 10:00 Temperature Pulse Rate 37 L Respiratory Rate 15 Blood Pressure Pulse Oximetry 95 Oxygen Delivery Method Oxygen Flow Rate Fraction of Inspired Oxygen 28 SaO2/FiO2 Ratio 342 Oxygen Delivery Method Room Air Oxygen Flow Rate 0 Narrative Exam Narrative: NAD, alert and oriented. Fluent speech. Lungs are clear, normal rate and effort. Heart is regular, no murmur gallop or rub. Abdomen is soft, non distended. Extremities are free of edema. Objective Labs 11/06/23 04:20 11/06/23 04:20 Labs: Laboratory Results - last 24 hr 11/06/23 04:20 WBC 2.8 L RBC 3.96 L Hgb 12.5 Hct 36.8 MCV 92.9 MCH 31.5 MCHC 33.9 RDW 13.8 Plt Count 105 L Sodium 135 L Potassium 3.5 Chloride 107 Carbon Dioxide 27 BUN 9 Creatinine 0.71 Estimated GFR > 60 BUN/Creatinine Ratio 12.7 Glucose 139 H Calcium 8.9 PFSH Medical History Opioid use Social History household members: none Smoking Status: Current every day smoker alcohol intake: never Discharge Plan Discharge Plan Patient Disposition: Home Provider Discharge Comment: You were admitted to the hospital with shortness of breath, found to have PE and COVID. Improved with treatments, now discharging home. Complete 3 months of anticoagulation, follow up with PCP recommended within 2-4 weeks. Discharge orders & Medications Prescriptions: New Eliquis 5 mg tablet See Rx Instructions .ROUTE .COMPLEX 90 Days Qty: 194 0RF Rx Instructions: take 10 mg BID for 1 week, followed by 5 mg BID for a total of 90 days Continued acetaminophen 325 mg Tablet 650 mg PO Q6H PRN (Reason: Fever/Mild Pain (1-3)) Qty: 30 0RF hydrocodone-acetaminophen 5-325 mg Tablet 1 tab PO Q4HR PRN (Reason: Pain, Moderate (4-10) Qty: 10 0RF Patient Comments: Takes 1 tab at 6AM, 2 tabs in afternoon, 1 tab at 10PM, any others are Q4h prn. morphine 15 mg Tablet Extended Release 15 mg PO Q8HR Qty: 60 0RF levothyroxine [Synthroid] 100 mcg Tablet 150 mcg PO DAILY@0600 Qty: 30 0RF nicotine 21 mg/24 hr Patch 24 Hour 21 mg topical DAILY Qty: 28 0RF clonazepam 0.5 mg Tablet 1 mg PO TID Qty: 90 0RF clonazepam 1 mg Tablet 1 mg PO TID Qty: 90 0RF Patient Comments: Takes 1 mg or 0.5 mg hydrocodone-acetaminophen 5-325 mg tablet 1 tab PO Q4-6H PRN (Reason: Pain (Scale Score 4-6)) Discontinued lisinopril 10 mg tablet 10 mg PO DAILY hydrochlorothiazide 25 mg tablet 25 mg PO DAILY Follow up/Referrals: Korin Quinn ARNP [Primary Care Provider] - Diet/Activity/Treatments Diet: Diet as Tolerated and Regular Activity: As tolerated, no restrictions. Visit Report/Discharge Packet Instructions: DI for Pulmonary Embolism, Apixaban, DI for COVID-19 (Suspected or Confirmed ) Stand Alone Forms: Patient Portal/API, Stroke Signs & Symptoms Discharge Data Primary Care Provider: Korin Quinn VTE Deep Vein Thrombosis/Pulmonary Embolism Present on Admission: Yes
--- NOTE | 2023-11-06 11:16 | CM.DPNOTE ---
DC Note Patient has been discharged home today, patient ambulating in room, no need for HH services at this time according to Dr Benoit. Friend to assist with transportation. Patient is COVID+ which limits option for taxi and TAB (transportation) is inactive. No additional needs identified from this CM team. Home w/friends and family, close outpatient follow up recommended. JW
== END 2023-11-06 11:24 | disposition home or self-care (01) | DRG 871 ==
LOC: ED 18:14 → AC 18:22 → ICU 18:58
PROVIDERS: Hospitalist; Admitting Provider Internal Medicine; Emergency Provider Emergency Medicine; PCP Nurse Practitioner; Referring Provider Emergency Medicine; Visit Provider Internal Medicine
DX: A41.9 Sepsis, unspecified organism (principal); I26.93 Single subsegmental thrombotic pulmonary embolism without acute cor pulmonale; U07.1 COVID-19; J12.82 Pneumonia due to coronavirus disease 2019; J96.01 Acute respiratory failure with hypoxia; N17.9 Acute kidney failure, unspecified; R65.20 Severe sepsis without septic shock; F17.210 Nicotine dependence, cigarettes, uncomplicated; I95.9 Hypotension, unspecified; I10 Essential (primary) hypertension; E03.9 Hypothyroidism, unspecified; E87.6 Hypokalemia; E86.9 Volume depletion, unspecified; Z28.310 Unvaccinated for COVID-19
CPT/HCPCS: 0241U; 36415; 71045; 71275; 80048; 80053; 82550; 83605; 83690; 83735; 83880; 84443; 84484; 85025; 85027; 85379; 85610; 85730; 87040; 87797; 93005; 93010; 96360; 96361; 99285; J1100; J1650; J2470; Q9967

== ENCOUNTER 2024-06-26 17:22 | Emergency (ER) | payer MEDICARE, SELFPAY ==
[2023-11-04 23:45] VITALS: BMI 25.9
[2024-06-26 17:25] VITALS: BP 170/80; PULSE 64; RESP 18; O2SAT 95
== END 2024-06-26 22:15 | disposition left against medical advice (07) ==
PROVIDERS: Emergency Provider Emergency Medicine; PCP Nurse Practitioner
CPT/HCPCS: 99281